=== PATIENT | female | born 1940 | race Caucasian/White ===

== ENCOUNTER 2016-11-21 19:48 | Emergency (ER) | payer MEDICARE, OTHER ==
[~2016-11-21] VITALS: Ht 172.7 cm; Wt 87.5 kg
[~2016-11-21 19:48] MED LIST: AMLO10TA2 PO; ASPI-482 PO; LEVO88TA4 PO; LISI-334 PO; LISI10TA2 PO; METF10002 PO; PRAV40TA2 PO
[2016-11-21 20:31] VITALS: BP 142/67
[2016-11-21] MEDS ORDERED: IPRATRPIUM/ALBUTEROL 0.5/2.5MG 3 ML NEBU. NEB ONE (20:45)
[2016-11-21 21:00] LABS: BASO % 1 % (0-3); EOS % 0 % (0-3); HEMATOCRIT 42.9 % (36.0-47.0); HEMOGLOBIN 14.2 g/dL (12.0-15.5); LYMPH # 0.5 x10^3/uL (1.0-4.8); LYMPH % 7 % (24-48); MEAN CORPUSCULAR HEMOGLOBIN 30 pg (25-35); MEAN CORPUSCULAR HGB CONC 33 g/dL (31-37); MEAN CORPUSCULAR VOLUME 91 fL (79-100); MONO % 11 % (0-9); NEUT % 80 % (31-73); PLATELET COUNT 170 x10^3/uL (140-400); RED BLOOD COUNT 4.73 x10^6/uL (3.50-5.40); RED CELL DISTRIBUTION WIDTH 13.6 % (11.5-14.5)
--- NOTE | 2016-11-21 21:01 | PHYS DOC ---
Past Medical History Past Medical History: Arthritis, CAD, Diabetes-Type II, High Cholesterol, Hypertension, Hypothyroid Past Surgical History: Appendectomy, Cholecystectomy, Coronary Bypass Surgery Alcohol Use: None Drug Use: None Adult General Chief Complaint Chief Complaint: Congestion HPI HPI 76-year-old female presents with several day history of progressive shortness of breath. She states she's also had some pain in her back when she takes a deep breath. She denies any fever chills or sweats. She has not had any hemoptysis. She denies dyspnea on exertion or orthopnea. [] Review of Systems Review of Systems Constitutional: Denies fever or chills [] Eyes: Denies change in visual acuity, redness, or eye pain [] HENT: Denies nasal congestion or sore throat [] Respiratory: Per history of present illness] Cardiovascular: No additional information not addressed in HPI [] GI: Denies abdominal pain, nausea, vomiting, bloody stools or diarrhea [] : Denies dysuria or hematuria [] Musculoskeletal: Denies back pain or joint pain [] Integument: Denies rash or skin lesions [] Neurologic: Denies headache, focal weakness or sensory changes [] Endocrine: Denies polyuria or polydipsia [] Current Medications Current Medications Current Medications Medications (Trade) Dose Ordered Sig/Vicky Start Time Stop Time Status Last Admin Dose Admin Albuterol/ Ipratropium (Duoneb) 3 ml 1X ONCE 11/21/16 20:45 11/21/16 20:46 DC 11/21/16 20:51 3 ML Allergies Allergies Allergies Coded Allergies Type Severity Reaction Last Updated Verified No Known Drug Allergies 01/07/16 No Physical Exam Physical Exam Constitutional: Well developed, well nourished, no acute distress, non-toxic appearance. [] HENT: Normocephalic, atraumatic, bilateral external ears normal, oropharynx moist, no oral exudates, nose normal. [] Eyes: PERRLA, EOMI, conjunctiva normal, no discharge. [] Neck: Normal range of motion, no tenderness, supple, no stridor. [] Cardiovascular:Heart rate regular rhythm, no murmur [] Lungs & Thorax: Bilateral breath sounds clear to auscultation [] Abdomen: Bowel sounds normal, soft, no tenderness, no masses, no pulsatile masses. [] Skin: Warm, dry, no erythema, no rash. [] Back: No tenderness, no CVA tenderness. [] Extremities: No tenderness, no cyanosis, no clubbing, ROM intact, no edema. [] Neurologic: Alert and oriented X 3, normal motor function, normal sensory function, no focal deficits noted. [] Psychologic: Affect normal, judgement normal, mood normal. [] Current Patient Data Vital Signs Vital Signs Date Time Temp Pulse Resp B/P Pulse Ox O2 Delivery O2 Flow Rate FiO2 11/21/16 20:54 92 Room Air 11/21/16 20:00 98.7 103 14 145/72 98.7 Lab Values Laboratory Tests Test 11/21/16 20:45 White Blood Count 7.0x10^3/uL (4.0-11.0) Red Blood Count 4.73x10^6/uL (3.50-5.40) Hemoglobin 14.2g/dL (12.0-15.5) Hematocrit 42.9% (36.0-47.0) Mean Corpuscular Volume 91fL (79-100) Mean Corpuscular Hemoglobin 30pg (25-35) Mean Corpuscular Hemoglobin Concent 33g/dL (31-37) Red Cell Distribution Width 13.6% (11.5-14.5) Platelet Count 170x10^3/uL (140-400) Neutrophils (%) (Auto) 80% (31-73) H Lymphocytes (%) (Auto) 7% (24-48) L Monocytes (%) (Auto) 11% (0-9) H Eosinophils (%) (Auto) 0% (0-3) Basophils (%) (Auto) 1% (0-3) Neutrophils # (Auto) 5.6x10^3uL (1.8-7.7) Lymphocytes # (Auto) 0.5x10^3/uL (1.0-4.8) L Monocytes # (Auto) 0.8x10^3/uL (0.0-1.1) Eosinophils # (Auto) 0.0x10^3/uL (0.0-0.7) Basophils # (Auto) 0.0x10^3/uL (0.0-0.2) Sodium Level 139mmol/L (136-145) Potassium Level 4.1mmol/L (3.5-5.1) Chloride Level 100mmol/L (98-107) Carbon Dioxide Level 27mmol/L (21-32) Anion Gap 12 (6-14) Blood Urea Nitrogen 23mg/dL (7-20) H Creatinine 1.4mg/dL (0.6-1.0) H Estimated GFR (Cockcroft-Gault) 36.5 BUN/Creatinine Ratio 16 (6-20) Glucose Level 203mg/dL (70-99) H Calcium Level 10.3mg/dL (8.5-10.1) H Total Bilirubin 0.5mg/dL (0.2-1.0) Aspartate Amino Transferase (AST) 20U/L (15-37) Alanine Aminotransferase (ALT) 27U/L (14-59) Alkaline Phosphatase 69U/L (46-116) Troponin I Quantitative < 0.017ng/mL (0.000-0.055) VV-Nxh-G-Type Natriuretic Peptide 605pg/mL (0-449) H Total Protein 7.8g/dL (6.4-8.2) Albumin 3.8g/dL (3.4-5.0) Albumin/Globulin Ratio 1.0 (1.0-1.7) Laboratory Tests 11/21/16 20:45 Laboratory Tests 11/21/16 20:45 EKG EKG [EKG: Sinus tachycardia rate of [address]-T changes] Radiology/Procedures Radiology/Procedures [] Impressions: Chest x-ray: Cardiomegaly no obvious infiltrate Course & Med Decision Making Course & Med Decision Making Pertinent Labs and Imaging studies reviewed. (See chart for details) [ED course: Evaluation reveals 76-year-old female in mild respiratory distress. She was given a DuoNeb treatment during her stay in the emergency from which did alleviate her symptoms. Patient states she feels much better and wants to go home.] Dragon Disclaimer Dragon Disclaimer This electronic medical record was generated, in whole or in part, using a voice recognition dictation system. Departure Departure Impression: Primary Impression: Dyspnea Disposition: HOME, SELF-CARE Condition: IMPROVED Referrals: ESTEVAN CARRANZA MD (PCP) Patient Instructions: Shortness of Breath Additional Instructions: Thank you for allowing us to participate in your care today. Followup with your primary care physician in 3 days if your symptoms do not improve. Return to the emergency department you have any new or concerning findings. This should be evaluated by the primary care physician and any necessary consulting services for continued management within a few days after discharge. Return to emergency room if you have any new or concerning symptoms including but not limited to fever, chills, nausea, vomiting, intractable pain, any new rashes, chest pain, shortness of air, uncontrolled bleeding, difficulty breathing, and/or vision loss. You may have been prescribed medication that can change in your level of thinking and ability to operate machinery. These medications include hydrocodone and Ativan. Also, Benadryl has been known to do this as well. Be sure to check with your pharmacist and ask if the medications you've prescribed can affect your level of consciousness. I recommend not operating heavy machinery or driving while on medication such as these. Scripts Albuterol Sulfate (Proventil Hfa Inhaler)6.7 Gm Hfa.[id number].ad1 Puff IH PRN Q4HRS PRN asthma #1 INHALER NS Prov:GEMA SHIN DO 11/21/16 Prednisone 20 Mg Tablet2 Tab PO DAILY PRN COUGH #14 TAB Prov:GEMA SHIN DO 11/21/16 Azithromycin (Zithromax)250 Mg Tablet1 Pkg PO UD bronchitis #6 TAB Take 2 tablets on day 1 and then 1 tablet each day for the next 4 days as directed Prov:GEMA SHIN DO 11/21/16 Problem Qualifiers Primary Impression: Dyspnea Dyspnea type: unspecified Qualified Code: R06.00 - Dyspnea, unspecified GEMA SHIN DO Nov 21, 2016 21:01
[2016-11-21 21:16] LABS: CALCIUM 10.3 mg/dL (8.5-10.1); CREATININE 1.4 mg/dL (0.6-1.0); GFR 36.5; POTASSIUM 4.1 mmol/L (3.5-5.1)
[2016-11-21 21:21] LABS: ALBUMIN 3.8 g/dL (3.4-5.0); TOTAL BILIRUBIN 0.5 mg/dL (0.2-1.0); TOTAL PROTEIN 7.8 g/dL (6.4-8.2)
[2016-11-21] MEDS ORDERED: PROVENTIL HFA6.7 GM IH (22:39)
[2016-11-21] MEDS ORDERED: PRED20TA PO (22:39)
[2016-11-21] MEDS ORDERED: AZIT250T PO (22:39)
--- NOTE | 2016-11-22 06:53 | EKG ---
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
--- NOTE | 2016-11-22 08:23 | RAD ---
Portable chest, 11/21/2016: History: Shortness of breath, cough Comparison is made to a study from 02/11/2007. There has been a previous median sternotomy. The heart is at the upper limits of normal in size. The pulmonary vascularity is normal. No pulmonary infiltrates are seen. There is no evidence of pleural fluid. There is a moderate thoracic scoliosis. The bony structures are demineralized. IMPRESSION: No acute cardiopulmonary abnormality is detected.
== END 2016-11-21 22:55 | disposition home or self-care (01) ==
LOC: ER 19:48
DX: R06.00 Dyspnea, unspecified (principal); M54.9 Dorsalgia, unspecified; E03.9 Hypothyroidism, unspecified; E11.9 Type 2 diabetes mellitus without complications; E78.00 Pure hypercholesterolemia, unspecified; I10 Essential (primary) hypertension; I25.10 Atherosclerotic heart disease of native coronary artery without angina pectoris; M19.90 Unspecified osteoarthritis, unspecified site; Z95.1 Presence of aortocoronary bypass graft; Z90.49 Acquired absence of other specified parts of digestive tract
CPT/HCPCS: 36415; 71010; 80053; 83880; 84484; 85027; 93005; 94250; 94640; 99285; J7620

== ENCOUNTER 2016-12-16 13:43 | Inpatient (IN) | payer MEDICARE, OTHER ==
[~2016-12-16] VITALS: Ht 172.7 cm; Wt 87.5 kg
[~2016-12-16 13:43] MED LIST changes: +AZIT250T PO; +PRED20TA PO; +PROVENTIL HFA6.7 GM IH
--- NOTE | 2016-12-16 14:18 | RAD ---
Indication weakness and productive cough for 4 weeks. A single view of the chest was obtained. Comparison is made to an exam November 21, 2016. Postoperative changes are noted. There is mild cardiomegaly, similar. There is no focal consolidated pneumonia. There is no gross congestive heart failure. Scoliosis is noted. A significant change compared to the previous exam is not seen. IMPRESSION: No acute process. No significant change
--- NOTE | 2016-12-16 14:27 | PHYS DOC ---
Past Medical History Past Medical History: Arthritis, CAD, Diabetes-Type II, High Cholesterol, Hypertension, Hypothyroid Past Surgical History: Appendectomy, Cholecystectomy, Coronary Bypass Surgery Alcohol Use: None Drug Use: None Adult General Chief Complaint Chief Complaint: WEAKNESS/GENERALIZED HPI HPI 76-year-old female who's had worsening weakness for the last month that is progressively worsen. Patient was seen in the ER approximately one month ago and put on a course of antibiotics for an upper respiratory infection. Patient then states she was still having a cough and some diarrhea symptoms for which she follow-up with her primary care doctor last week and had her metformin adjusted. Patient still states that she is very weak appearing barely walk. She normally lives alone and does have home health assistance but that she normally does not require any walker or wheelchair. She now states she can barely walk. She denies any chest pain or shortness of breath. She denies any significant fever or chills. She denies any nausea. She does state she had one episode of vomiting yesterday that resolved. She does state she has and able to eat and drink. She denies any abdominal pain. She denies any headache or dizziness. Review of Systems Review of Systems Constitutional: Denies fever or chills [] Eyes: Denies change in visual acuity, redness, or eye pain [] HENT: Denies nasal congestion or sore throat [] Respiratory: Denies cough or shortness of breath [] Cardiovascular: No additional information not addressed in HPI [] GI: Denies abdominal pain, nausea, vomiting, bloody stools or diarrhea [] : Denies dysuria or hematuria [] Musculoskeletal: Denies back pain or joint pain [] Integument: Denies rash or skin lesions [] Neurologic: Denies headache, focal weakness or sensory changes [] Endocrine: Denies polyuria or polydipsia [] Current Medications Current Medications Current Medications Medications (Trade) Dose Ordered Sig/Vicky Start Time Stop Time Status Last Admin Dose Admin Albuterol/ Ipratropium 3 ml 3 ml 1X ONCE 12/16/16 14:30 12/16/16 14:31 DC 12/16/16 14:35 3 ML Sodium Chloride (Iv Sodium Chloride 0.9% 1000ml Bag) 1,000 ml @ 1,000 mls/hr 1X ONCE 12/16/16 14:30 12/16/16 15:29 12/16/16 14:33 1,000 MLS/HR Allergies Allergies Allergies Coded Allergies Type Severity Reaction Last Updated Verified No Known Drug Allergies 01/07/16 No Physical Exam Physical Exam Constitutional: Well developed, well nourished, no acute distress, non-toxic appearance. [] HENT: Normocephalic, atraumatic, bilateral external ears normal, oropharynx moist, no oral exudates, nose normal. [] Eyes: PERRLA, EOMI, conjunctiva normal, no discharge. [] Neck: Normal range of motion, no tenderness, supple, no stridor. [] Cardiovascular:Heart rate regular rhythm, no murmur [] Lungs & Thorax: Bilateral breath sounds clear to auscultation [] Abdomen: Bowel sounds normal, soft, no tenderness, no masses, no pulsatile masses. [] Skin: Warm, dry, no erythema, no rash. [] Back: No tenderness, no CVA tenderness. [] Extremities: No tenderness, no cyanosis, no clubbing, ROM intact, no edema. [] Neurologic: Alert and oriented X 3, normal motor function, normal sensory function, no focal deficits noted. [] Psychologic: Affect normal, judgement normal, mood normal. [] Current Patient Data Vital Signs Vital Signs Date Time Temp Pulse Resp B/P Pulse Ox O2 Delivery O2 Flow Rate FiO2 12/16/16 14:40 94 Room Air 12/16/16 13:52 96.8 56 24 170/90 96.8 Lab Values Laboratory Tests Test 12/16/16 13:55 12/16/16 14:30 White Blood Count 6.0x10^3/uL (4.0-11.0) Red Blood Count 4.81x10^6/uL (3.50-5.40) Hemoglobin 14.1g/dL (12.0-15.5) Hematocrit 41.6% (36.0-47.0) Mean Corpuscular Volume 87fL (79-100) Mean Corpuscular Hemoglobin 29pg (25-35) Mean Corpuscular Hemoglobin Concent 34g/dL (31-37) Red Cell Distribution Width 13.1% (11.5-14.5) Platelet Count 209x10^3/uL (140-400) Neutrophils (%) (Auto) 59% (31-73) Lymphocytes (%) (Auto) 30% (24-48) Monocytes (%) (Auto) 9% (0-9) Eosinophils (%) (Auto) 2% (0-3) Basophils (%) (Auto) 0% (0-3) Neutrophils # (Auto) 3.5x10^3uL (1.8-7.7) Lymphocytes # (Auto) 1.8x10^3/uL (1.0-4.8) Monocytes # (Auto) 0.5x10^3/uL (0.0-1.1) Eosinophils # (Auto) 0.1x10^3/uL (0.0-0.7) Basophils # (Auto) 0.0x10^3/uL (0.0-0.2) Sodium Level 133mmol/L (136-145) L Potassium Level 3.0mmol/L (3.5-5.1) L Chloride Level 93mmol/L (98-107) L Carbon Dioxide Level 29mmol/L (21-32) Anion Gap 11 (6-14) Blood Urea Nitrogen 23mg/dL (7-20) H Creatinine 1.1mg/dL (0.6-1.0) H Estimated GFR (Cockcroft-Gault) 48.2 Glucose Level 262mg/dL (70-99) H Calcium Level 10.0mg/dL (8.5-10.1) Urine Collection Type U cath Urine Color Yellow Urine Clarity Clear Urine pH 6.0 Urine Specific Higginson 1.010 Urine Protein Negativemg/dL (NEG-TRACE) Urine Glucose (UA) 500mg/dL (NEG) Urine Ketones (Stick) Negativemg/dL (NEG) Urine Blood Negative (NEG) Urine Nitrite Negative (NEG) Urine Bilirubin Negative (NEG) Urine Urobilinogen Dipstick 0.2mg/dL (0.2 mg/dL) Urine Leukocyte Esterase Negative (NEG) Urine RBC 0/HPF (0-2) Urine WBC Occ/HPF (0-4) Urine Squamous Epithelial Cells Few/LPF Urine Renal Epithelial Cells Occ/LPF Urine Bacteria 0/HPF (0-FEW) Laboratory Tests 12/16/16 13:55 Laboratory Tests 12/16/16 13:55 EKG EKG EKG as interpreted by me shows sinus rhythm with a rate of 54 bpm. There is some ST flattening in leads V3 through V6 but no obvious ischemic findings on this EKG. Interpretation is somewhat limited due to artifact. Radiology/Procedures Radiology/Procedures One view of the chest as interpreted by me does not reveal any acute findings. This is confirmed by the radiologist. There is no significant change from a chest film she had obtained on November 21, 2016. Course & Med Decision Making Course & Med Decision Making Pertinent Labs and Imaging studies reviewed. (See chart for details) This 76-year-old female with ongoing weakness that is progressively worsened will likely be admitted to the hospital for further evaluation and treatment. Her workup is still pending at this time her EKG and chest film were unrevealing for her weakness. Patient will be given a breathing treatment as well as IV fluids. Laboratory workup including urinalysis will be obtained. Laboratory workup significant for hypokalemia of 3.0. Urinalysis is negative for any sign of infection. I'll be admitting her primarily to the hospitalist for her ongoing weakness. A dose of potassium was ordered per the department. I discussed the case with the hospitalist, Dr. Parsons, who agreed to accept the patient for further evaluation and treatment. Dragon Disclaimer Dragon Disclaimer This electronic medical record was generated, in whole or in part, using a voice recognition dictation system. Departure Departure Impression: Primary Impression: Weakness Additional Impression: Hypokalemia Disposition: ADMITTED INPATIENT Admitting Physician: Other Condition: STABLE Referrals: ESTEVAN CARRANZA MD (PCP) Problem Qualifiers LINO SAMUEL DO Dec 16, 2016 14:27
[2016-12-16] MEDS ORDERED: IPRATRPIUM/ALBUTEROL 0.5/2.5MG 3 ML NEBU. NEB ONE (14:30)
[2016-12-16] MEDS ORDERED: IV NORMAL SALINE 1000ML BAG 1,000 ML IV ONE (14:30)
[2016-12-16 14:34] LABS: BASO % 0 % (0-3); EOS % 2 % (0-3); HEMATOCRIT 41.6 % (36.0-47.0); HEMOGLOBIN 14.1 g/dL (12.0-15.5); LYMPH # 1.8 x10^3/uL (1.0-4.8); LYMPH % 30 % (24-48); MEAN CORPUSCULAR HEMOGLOBIN 29 pg (25-35); MEAN CORPUSCULAR HGB CONC 34 g/dL (31-37); MEAN CORPUSCULAR VOLUME 87 fL (79-100); MONO % 9 % (0-9); NEUT % 59 % (31-73); PLATELET COUNT 209 x10^3/uL (140-400); RED BLOOD COUNT 4.81 x10^6/uL (3.50-5.40); RED CELL DISTRIBUTION WIDTH 13.1 % (11.5-14.5)
[2016-12-16 14:40] LABS: BILIRUBIN,URINE NEGATIVE (NEG); GLUCOSE,URINE 500 mg/dL (NEG); NITRITE,URINE NEGATIVE (NEG); PROTEIN,URINE NEGATIVE (NEG-TRACE); UROBILINOGEN,URINE 0.2 mg/dL (0.2 mg/dL)
[2016-12-16 14:45] LABS: CREATININE 1.1 mg/dL (0.6-1.0); GFR 48.2
[2016-12-16 14:45] LABS: BACTERIA,URINE 0 /HPF (0-FEW); RBC,URINE 0 /HPF (0-2); SQUAMOUS EPITHELIAL CELL,UR FEW /LPF; WBC,URINE OCC /HPF (0-4)
[2016-12-16] MEDS ORDERED: POTASSIUM CHLORIDE 20 MEQ TABLET.ER. PO ONE (15:00)
[2016-12-16] MEDS ORDERED: ONDANSETRON PF 4 MG/2 ML VIAL. IV PRN (15:15)
--- NOTE | 2016-12-16 15:27 | ACF ---
Admission Forms Criteria TELEMETRY CARE Telemetry Admission Guidelines (Place 'X' for any and all applicable criteria): Admission to telemetry [A] may be indicated for ANY ONE of the following(1)(2)(3 )(4)(5): [ ]I. Cardiac disease, including ANY ONE of the following (9)(10)(11)(12)(13 ): [ ]a) Postacute IA [ ]b) Low-risk patients with ST-segment elevation IA who have undergone successful percutaneous coronary intervention [ ]c) Unstable angina [ ]d) Suspected IA (until it is ruled out) [ ]e) Post cardiac surgery (first 48 to 72 hours unless complications occur) [ ]f) Acute arrhythmias (including significant tachycardia or bradycardia) [B] [ ]g) Firing of an implantable cardioverter defibrillator [C] [ ]h) Suspected pacemaker or implantable cardioverter defibrillator malfunction (10) [ ]i) New administration or adjustment of an antiarrhythmic drug [D ] [ ]j) Child admitted for acute congestive heart failure [ ]j) Long QT syndrome [ ]k) Advanced heart block (eg, second-degree Mobitz type II, third- degree heart block) [ ]l) Acute myocarditis or pericarditis [ ]m) Short-term (ambulatory or inpatient) monitoring after a cardiac procedure as indicated by ANY ONE of the following [E]: [ ]i) Electrophysiologic studies [ ]ii) Percutaneous coronary intervention with stent placement [ ]iii) Pacemaker placement with cardiac conduction defect [ ]iv) Implantable cardiac defibrillator placement [ ]II. Drug overdose or poisoning with substance that causes arrhythmias or QT prolongation (eg, phenothiazines, sympathomimetic agents, cyclic antidepressants, digitalis, antiarrhythmic drugs)(15) [ ]III. Short-term (ambulatory or inpatient) monitoring after therapeutic or diagnostic procedure requiring conscious sedation or anesthesia (eg, endoscopy, elective cardioversion) [ ]IV. Acute cerebrovascular even[F](18) [ ]V. Massive blood transfusion (eg, at least 10 units of packed red blood cells in 24 hours) [ ]. Variceal bleeding after endoscopy, sclerotherapy, or IV vasopressin [X]VII. Uncorrected electrolyte abnormalities associated with an increased risk of dangerous arrhythmia [G]; examples include [X]a) Hyperkalemia with attributable ECG changes [ ]b) Potassium greater than 6.5 mmol/L (mEq/L) in a patient without history of chronic renal disease [ ]c) Prolonged QT attributed to hypokalemia, hypomagnesemia, or hypocalcemia [ ]VIII.Unexplained syncope or other neurologic event suspected of being due to arrhythmia due to a finding that increases risk; examples include(19)(20)(21): [ ]a) High-risk ECG findings (eg, bifascicular block, bradycardia, abnormal QT interval, ventricular pre- excitation) [ ]b) History of previous syncope due to arrhythmia [ ]c) Abnormal ventricular function (eg, reduced ejection fraction ) [ ]d) Exertional or supine syncope [ ]e) Concerning syncope characteristics (eg, sudden loss of consciousness without prodrome) [ ]f) Family history of sudden [ ]g) Use of arrhythmogenic medication [ ]h) Suspected cardiac ischemia [ ]i) Known channelopathy (eg, long QT syndrome, Brugada syndrome, or catecholaminergic paroxysmal ventricular tachycardia) [ ]j) Known structural heart disease (eg, hypertrophic cardiomyopathy , severe valvular disease) [ ]k) Palpitations preceding syncope The original [employer] content created by [employer] has been revised. The portions of the content which have been revised are identified through the use of italic text or in bold, and [employer] has neither reviewed nor approved the modified material. All other unmodified content is copyright [employer]. Please see references footnoted in the original [employer] edition 2016 Admission Criteria Met?: Yes EVARISTO KEBEDE Dec 16, 2016 15:27
[2016-12-16] MEDS ORDERED: ASPI81TA2 PO (18:22)
[2016-12-16] MEDS ORDERED: GLIM1TAB2 PO (18:22)
[2016-12-16 19:05] VITALS: BP 151/58
[2016-12-16] MEDS: IPRATRPIUM/ALBUTEROL 0.5/2.5MG 3 ML NEBU. NEB SCH (21:11)
[2016-12-16 23:05] VITALS: BP 145/78
[2016-12-17] MEDS: ZOLPIDEM 5 MG TABLET. PO PRN ×2 (00:24→23:47)
[2016-12-17] MEDS: PROMETH/CODEINE 6.25/10MG 5 ML SYRUP. PO PRN ×2 (00:24→23:47)
[2016-12-17 05:40] LABS: BASO % 1 % (0-3); EOS % 3 % (0-3); HEMATOCRIT 40.7 % (36.0-47.0); HEMOGLOBIN 13.7 g/dL (12.0-15.5); LYMPH # 1.8 x10^3/uL (1.0-4.8); LYMPH % 33 % (24-48); MEAN CORPUSCULAR HEMOGLOBIN 30 pg (25-35); MEAN CORPUSCULAR HGB CONC 34 g/dL (31-37); MEAN CORPUSCULAR VOLUME 87 fL (79-100); MONO % 11 % (0-9); NEUT % 54 % (31-73); PLATELET COUNT 201 x10^3/uL (140-400); RED BLOOD COUNT 4.66 x10^6/uL (3.50-5.40); WHITE BLOOD COUNT 5.6 x10^3/uL (4.0-11.0)
[2016-12-17 06:02] LABS: GFR 53.8; POTASSIUM 3.7 mmol/L (3.5-5.1)
[2016-12-17 07:00] VITALS: BP 133/67
[2016-12-17] MEDS: IPRATRPIUM/ALBUTEROL 0.5/2.5MG 3 ML NEBU. NEB SCH ×2 (08:27→11:37)
[2016-12-17 11:17] VITALS: BP 118/63
--- NOTE | 2016-12-17 11:39 | EKG ---
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
[2016-12-17] MEDS ORDERED: DEXTROSE 50% 25 GM / 50ML DISP.SYRIN. IV PRN (12:00)
--- NOTE | 2016-12-17 12:11 | PDOC1 ---
History and Physical Date of Admission Date of Admission DATE: 12/16/16 Identification/Chief Complaint Chief Complaint Weakness, shortness of air Source Source: Patient History of Present Illness History of Present Illness Pt states that she has not been feeling well for the past month and has had increased, progressive weakness. She thinks her weakness is related to her cough. Cough is productive at times with yellow sputum. She feels exceptionally SOA when she is walking. She denies history of asthma or COPD, but then states she has been told in the past that she has emphysema. She did have a week of diarrhea, but that has resolved. She has been treated with antibiotics by her PCP but was not improving. Past Medical History Cardiovascular: CAD, HTN, Hyperlipidemia Pulmonary: COPD GI: No pertinent hx Heme/Onc: No pertinent hx Hepatobiliary: No pertinent hx Psych: No pertinent hx Rheumatologic: No pertinent hx Infectious disease: No pertinent hx ENT: No pertinent hx Renal/: No pertinent hx Endocrine: Diabetes, Hypothyroidism, Hyperparathyroidism Dermatology: No pertinent hx Past Surgical History Past Surgical History: CABG, Other (Bladder Surgery) Family History Family History: Cancer (Mom- ovarian), Diabetes (Brother, Sister), Heart Disease (Father, Sister) Social History Smoke: Quit ALCOHOL: none Drugs: None Current Problem List Problem List Problems Medical Problems: (1) Hypokalemia Status: Acute (2) Weakness Status: Acute Problems: Current Medications Current Medications Current Medications Albuterol/ Ipratropium 3 ml 3 ml 1X ONCE NEB Last administered on 12/16/16 14 :35; Start 12/16/16 at 14:30; Stop 12/16/16 at 14:31; Status DC Sodium Chloride (Iv Sodium Chloride 0.9% 1000ml Bag) 1,000 ml @ 1,000 mls/hr 1X ONCE IV Last administered on 12/16/16 14:33; Start 12/16/16 at 14:30; Stop 12/16/16 at 15:29; Status DC Potassium Chloride (Klor-Con) 40 meq 1X ONCE PO Last administered on 15:19; Start 12/16/16 at 15:00; Stop 12/16/16 at 15:01; Status DC Ondansetron HCl (Zofran) 4 mg PRN Q8HRS PRN IV NAUSEA/VOMITING; Start 12/16/16 at 15:15; Stop 12/17/16 at 15:14 Albuterol/ Ipratropium (Duoneb) 3 ml RTQID NEB Last administered on 12/17/16 11:37; Start 12/16/16 at 16:00; Stop 12/17/16 at 15:59 Promethazine HCl/ Codeine (Phenergan With Codeine) 5 ml PRN Q6HRS PRN PO COUGH Last administered on 12/17/16 00:24; Start 12/17/16 at 00:30 Zolpidem Tartrate (Ambien) 5 mg PRN QHS PRN PO INSOMNIA Last administered on 00:24; Start 12/17/16 at 00:30 Prednisone (Prednisone) 60 mg DAILY PO ; Start 12/17/16 at 12:00; Status UNV Levofloxacin (Levaquin) 500 mg DAILY06 PO ; Start 12/17/16 at 12:00; Status UNV Active Scripts Active Proventil Hfa Inhaler (Albuterol Sulfate) 6.7 Gm Hfa.aer.ad 1 Puff IH PRN Q4HRS PRN Prednisone 20 Mg Tablet 2 Tab PO DAILY PRN Zithromax (Azithromycin) 250 Mg Tablet 1 Pkg PO UD Take 2 tablets on day 1 and then 1 tablet each day for the next 4 days as directed Reported Aspirin 81 Mg Tab.chew 81 Mg PO Glimepiride 1 Mg Tablet 1 Mg PO DAILY Amlodipine Besylate 10 Mg Tablet 10 Mg PO DAILY Pravastatin Sodium 40 Mg Tablet 1 Tab PO DAILY Levothyroxine Sodium 88 Mcg Tablet 1 Tab PO DAILY Allergies Allergies: Coded Allergies: No Known Drug Allergies (Unverified , 01/07/16) ROS General: YES: Fatigue, No: Chills PSYCHOLOGICAL ROS: No: Anxiety, Depression Eyes: No Decreased vision, No Eye Pain HEENT: No: Nasal congestion, Sore Throat ALLERGY AND IMMUNOLOGY: YES: Post Nasal Drip, No: Hives Hematological and Lymphatic: No: Bleeding Problems, Blood Clots Breast: No New/Changing Breast Lumps Respiratory: YES: Cough, Shortness of breath, Sputum Changes Cardiovascular: No Chest Pain, No Edema, No Palpitations Gastrointestinal: No Abdominal Pain, No Constipation, No Diarrhea, No Nausea, No Vomiting Genitourinary: No Dysuria, No Urgency Musculoskeletal: No Joint Pain, No Muscle Pain Neurological: Yes Weakness, No Impaired Coord/balance, No Numbness/Tingling Skin: No Rash, No Skin Lesion Changes Physical Exam General: Alert, Oriented X3, Cooperative, No acute distress, Other (slight resting tremor) HEENT: Atraumatic, PERRLA, EOMI, Mucous membr. moist/pink Lungs: Other (rhonchi and wheezing heard throughout) Heart: RRR, no thrills, no rubs, no gallops Abdomen: Normal bowel sounds, Soft, No tenderness, No hepatosplenomegaly Extremities: No clubbing, No cyanosis, No edema Skin: No rashes, No breakdown, No significant lesion Neuro: Normal speech, Sensation intact, Cranial nerves 3-12 NL Psych/Mental Status: Mental status NL, Mood NL Vitals Vitals Vital Signs Date Time Temp Pulse Resp B/P Pulse Ox O2 Delivery O2 Flow Rate FiO2 12/17/16 11:39 95 Room Air 12/17/16 11:17 96.1 78 17 118/63 96.1 Labs Labs Laboratory Tests Test 12/16/16 13:55 12/16/16 14:30 12/17/16 05:20 White Blood Count 6.0x10^3/uL (4.0-11.0) 5.6x10^3/uL (4.0-11.0) Red Blood Count 4.81x10^6/uL (3.50-5.40) 4.66x10^6/uL (3.50-5.40) Hemoglobin 14.1g/dL (12.0-15.5) 13.7g/dL (12.0-15.5) Hematocrit 41.6% (36.0-47.0) 40.7% (36.0-47.0) Mean Corpuscular Volume 87fL (79-100) 87fL (79-100) Mean Corpuscular Hemoglobin 29pg (25-35) 30pg (25-35) Mean Corpuscular Hemoglobin Concent 34g/dL (31-37) 34g/dL (31-37) Red Cell Distribution Width 13.1% (11.5-14.5) 13.0% (11.5-14.5) Platelet Count 209x10^3/uL (140-400) 201x10^3/uL (140-400) Neutrophils (%) (Auto) 59% (31-73) 54% (31-73) Lymphocytes (%) (Auto) 30% (24-48) 33% (24-48) Monocytes (%) (Auto) 9% (0-9) 11% (0-9) Eosinophils (%) (Auto) 2% (0-3) 3% (0-3) Basophils (%) (Auto) 0% (0-3) 1% (0-3) Neutrophils # (Auto) 3.5x10^3uL (1.8-7.7) 3.0x10^3uL (1.8-7.7) Lymphocytes # (Auto) 1.8x10^3/uL (1.0-4.8) 1.8x10^3/uL (1.0-4.8) Monocytes # (Auto) 0.5x10^3/uL (0.0-1.1) 0.6x10^3/uL (0.0-1.1) Eosinophils # (Auto) 0.1x10^3/uL (0.0-0.7) 0.2x10^3/uL (0.0-0.7) Basophils # (Auto) 0.0x10^3/uL (0.0-0.2) 0.0x10^3/uL (0.0-0.2) Sodium Level 133mmol/L (136-145) 140mmol/L (136-145) Potassium Level 3.0mmol/L (3.5-5.1) 3.7mmol/L (3.5-5.1) Chloride Level 93mmol/L (98-107) 103mmol/L (98-107) Carbon Dioxide Level 29mmol/L (21-32) 27mmol/L (21-32) Anion Gap 11 (6-14) 10 (6-14) Blood Urea Nitrogen 23mg/dL (7-20) 18mg/dL (7-20) Creatinine 1.1mg/dL (0.6-1.0) 1.0mg/dL (0.6-1.0) Estimated GFR (Cockcroft-Gault) 48.2 53.8 Glucose Level 262mg/dL (70-99) 170mg/dL (70-99) Calcium Level 10.0mg/dL (8.5-10.1) 10.0mg/dL (8.5-10.1) Troponin I Quantitative < 0.017ng/mL (0.000-0.055) Urine Collection Type U cath Urine Color Yellow Urine Clarity Clear Urine pH 6.0 Urine Specific [place] 1.010 Urine Protein Negativemg/dL (NEG-TRACE) Urine Glucose (UA) 500mg/dL (NEG) Urine Ketones (Stick) Negativemg/dL (NEG) Urine Blood Negative (NEG) Urine Nitrite Negative (NEG) Urine Bilirubin Negative (NEG) Urine Urobilinogen Dipstick 0.2mg/dL (0.2 mg/dL) Urine Leukocyte Esterase Negative (NEG) Urine RBC 0/HPF (0-2) Urine WBC Occ/HPF (0-4) Urine Squamous Epithelial Cells Few/LPF Urine Renal Epithelial Cells Occ/LPF Urine Bacteria 0/HPF (0-FEW) Laboratory Tests Test 12/16/16 13:55 12/16/16 14:30 12/17/16 05:20 White Blood Count 6.0x10^3/uL (4.0-11.0) 5.6x10^3/uL (4.0-11.0) Red Blood Count 4.81x10^6/uL (3.50-5.40) 4.66x10^6/uL (3.50-5.40) Hemoglobin 14.1g/dL (12.0-15.5) 13.7g/dL (12.0-15.5) Hematocrit 41.6% (36.0-47.0) 40.7% (36.0-47.0) Mean Corpuscular Volume 87fL (79-100) 87fL (79-100) Mean Corpuscular Hemoglobin 29pg (25-35) 30pg (25-35) Mean Corpuscular Hemoglobin Concent 34g/dL (31-37) 34g/dL (31-37) Red Cell Distribution Width 13.1% (11.5-14.5) 13.0% (11.5-14.5) Platelet Count 209x10^3/uL (140-400) 201x10^3/uL (140-400) Neutrophils (%) (Auto) 59% (31-73) 54% (31-73) Lymphocytes (%) (Auto) 30% (24-48) 33% (24-48) Monocytes (%) (Auto) 9% (0-9) 11% (0-9) Eosinophils (%) (Auto) 2% (0-3) 3% (0-3) Basophils (%) (Auto) 0% (0-3) 1% (0-3) Neutrophils # (Auto) 3.5x10^3uL (1.8-7.7) 3.0x10^3uL (1.8-7.7) Lymphocytes # (Auto) 1.8x10^3/uL (1.0-4.8) 1.8x10^3/uL (1.0-4.8) Monocytes # (Auto) 0.5x10^3/uL (0.0-1.1) 0.6x10^3/uL (0.0-1.1) Eosinophils # (Auto) 0.1x10^3/uL (0.0-0.7) 0.2x10^3/uL (0.0-0.7) Basophils # (Auto) 0.0x10^3/uL (0.0-0.2) 0.0x10^3/uL (0.0-0.2) Sodium Level 133mmol/L (136-145) 140mmol/L (136-145) Potassium Level 3.0mmol/L (3.5-5.1) 3.7mmol/L (3.5-5.1) Chloride Level 93mmol/L (98-107) 103mmol/L (98-107) Carbon Dioxide Level 29mmol/L (21-32) 27mmol/L (21-32) Anion Gap 11 (6-14) 10 (6-14) Blood Urea Nitrogen 23mg/dL (7-20) 18mg/dL (7-20) Creatinine 1.1mg/dL (0.6-1.0) 1.0mg/dL (0.6-1.0) Estimated GFR (Cockcroft-Gault) 48.2 53.8 Glucose Level 262mg/dL (70-99) 170mg/dL (70-99) Calcium Level 10.0mg/dL (8.5-10.1) 10.0mg/dL (8.5-10.1) Troponin I Quantitative < 0.017ng/mL (0.000-0.055) Urine Collection Type U cath Urine Color Yellow Urine Clarity Clear Urine pH 6.0 Urine Specific [place] 1.010 Urine Protein Negativemg/dL (NEG-TRACE) Urine Glucose (UA) 500mg/dL (NEG) Urine Ketones (Stick) Negativemg/dL (NEG) Urine Blood Negative (NEG) Urine Nitrite Negative (NEG) Urine Bilirubin Negative (NEG) Urine Urobilinogen Dipstick 0.2mg/dL (0.2 mg/dL) Urine Leukocyte Esterase Negative (NEG) Urine RBC 0/HPF (0-2) Urine WBC Occ/HPF (0-4) Urine Squamous Epithelial Cells Few/LPF Urine Renal Epithelial Cells Occ/LPF Urine Bacteria 0/HPF (0-FEW) VTE Prophylaxis Ordered VTE Prophylaxis Devices: Yes VTE Pharmacological Prophylaxi: No Assessment/Plan Assessment/Plan Pt is a 76yo CF admitted for COPD Exacerbation 1)COPD Exacerbation- pt started on Prednisone and Levaquin. Will get PT/OT to work with her as well. 2)HTN- pt's blood pressure WNL without her medicine. Will hold pt's Norvasc 5mg , Metoprolol 50mg ER, and HCTZ/Lisinopril 3)DM2- previously moderately controlled with HbA1C of 7.6 01/11. Will repeat. Will continue pt's Amaryl 1mg and also have SSI available 4)Hypothyroidism- previously well controlled with TSH of 3.641 01/11. Will continue pt's Levothyroxine 88mcg 5)Hypokalemia- resolved JOSE ANGEL HERRON MD Dec 17, 2016 12:11
[2016-12-17] MEDS ORDERED: ALBUTEROL SULFATE 2.5 MG/3 ML NEBU. NEB PRN (12:15)
[2016-12-17] MEDS: GLIMEPIRIDE 2 MG TABLET PO SCH (12:49)
[2016-12-17] MEDS: ASPIRIN 81 MG TAB.CHEW PO SCH (12:49)
[2016-12-17] MEDS: LEVOFLOXACIN 500 MG TABLET PO SCH (12:49)
[2016-12-17] MEDS: LEVOTHYROXINE 88 MCG TABLET PO SCH (12:49)
[2016-12-17] MEDS: PREDNISONE 20 MG TABLET PO SCH (12:50)
[2016-12-17] MEDS: INSULIN ASPART 300 UNITS/3 ML INSULN.PEN SQ SCH ×2 (12:56→18:04)
[2016-12-17 15:00] VITALS: BP 114/60
[2016-12-17 19:15] VITALS: BP 137/64
[2016-12-17] MEDS ORDERED: INSULIN ASPART 300 UNITS/3 ML INSULN.PEN SQ ONE (21:15)
[2016-12-17] MEDS: ATORVASTATIN CALCIUM 20 MG TABLET PO SCH (21:18)
[2016-12-17 22:45] VITALS: BP 151/81
[2016-12-18 03:00] VITALS: BP 134/56
[2016-12-18] MEDS: LEVOTHYROXINE 88 MCG TABLET PO SCH (06:18)
[2016-12-18] MEDS: LEVOFLOXACIN 500 MG TABLET PO SCH (06:18)
[2016-12-18 07:15] VITALS: BP 147/72
[2016-12-18] MEDS: PREDNISONE 20 MG TABLET PO SCH (08:24)
[2016-12-18] MEDS: GLIMEPIRIDE 2 MG TABLET PO SCH (08:24)
[2016-12-18] MEDS: ASPIRIN 81 MG TAB.CHEW PO SCH (08:24)
[2016-12-18] MEDS: INSULIN ASPART 300 UNITS/3 ML INSULN.PEN SQ SCH ×3 (08:29→17:10)
--- NOTE | 2016-12-18 09:38 | PDOC ---
SUBJECTIVE Subjective Pt states that she still does not feel great, but was able to walk around a little bit better today. OBJECTIVE Vital Signs Vital Signs Date Time Temp Pulse Resp B/P Pulse Ox O2 Delivery O2 Flow Rate FiO2 12/18/16 07:15 97.6 65 16 147/72 95 Room Air 97.6 12/18/16 03:00 97.5 74 16 134/56 93 Room Air 97.5 12/17/16 22:45 97.7 104 18 151/81 100 Room Air 97.7 12/17/16 20:15 Room Air 12/17/16 19:15 97.5 79 16 137/64 94 Room Air 97.5 12/17/16 15:00 97.3 76 19 114/60 94 Room Air 97.3 12/17/16 11:39 95 Room Air 12/17/16 11:17 96.1 78 17 118/63 96 Room Air 96.1 I & O Intake and Output 12/18/16 07:00 Intake Total 1200 ml Output Total 740 ml Balance 460 ml Intake Oral 1200 ml Output Urine Total 740 ml # Voids 1 PHYSICAL EXAM Physical Exam General: Alert, Oriented X3, Cooperative, No acute distress, Other (slight resting tremor) HEENT: Atraumatic, PERRLA, EOMI, Mucous membr. moist/pink Lungs: Other (rhonchi and wheezing heard throughout) Heart: RRR, no thrills, no rubs, no gallops Abdomen: Normal bowel sounds, Soft, No tenderness, No hepatosplenomegaly Extremities: No clubbing, No cyanosis, No edema Skin: No rashes, No breakdown, No significant lesion Neuro: Normal speech, Sensation intact, Cranial nerves 3-12 NL Psych/Mental Status: Mental status NL, Mood NL ASSESSMENT/PLAN Assessment/Plan Pt is a 76yo CF admitted for COPD Exacerbation 1)COPD Exacerbation- pt started on Prednisone and Levaquin; lungs still are very tight with wheezing and rhonchi, will change to IV Methylprednisolone. Will get PT/OT to work with her as well. 2)HTN- was holding pt's medications because of normal blood pressure. Will resume her Norvasc 5mg and Metoprolol 50mg ER but continue to hold her HCTZ/ Lisinopril 3)DM2- previously moderately controlled with HbA1C of 7.6 01/11. Repeat still pending. Will continue pt's Amaryl 1mg and pt also has SSI available 4)Hypothyroidism- well controlled with TSH of 1.295 this admission. Will continue pt's Levothyroxine 88mcg 5)Hypokalemia- resolved Problems: COMMENT Lab Laboratory Tests Test 12/17/16 12:48 12/17/16 17:31 12/17/16 20:39 12/17/16 22:45 Glucose (Fingerstick) 301mg/dL (70-99) 233mg/dL (70-99) 488mg/dL (70-99) 332mg/dL (70-99) Test 12/18/16 03:34 12/18/16 07:32 Thyroid Stimulating Hormone (TSH) 1.295uIU/mL (0.358-3.74) Glucose (Fingerstick) 253mg/dL (70-99) JOSE ANGEL HERRON MD Dec 18, 2016 09:38
[2016-12-18] MEDS: METOPROLOL SUCC 24HR ER 50 MG TAB.ER.24H. PO SCH (09:42)
[2016-12-18] MEDS: AMLODIPINE BESYLATE 5 MG TABLET PO SCH (09:43)
[2016-12-18 10:35] VITALS: BP 141/66
[2016-12-18] MEDS: methylPREDNISolone SOD SUCC PF 40 MG/ML VIAL. IV SCH ×2 (13:06→20:33)
[2016-12-18 15:00] VITALS: BP 141/71
[2016-12-18 19:25] VITALS: BP 137/43
[2016-12-18] MEDS: ATORVASTATIN CALCIUM 20 MG TABLET PO SCH (20:32)
[2016-12-18] MEDS: ZOLPIDEM 5 MG TABLET. PO PRN (22:52)
[2016-12-18] MEDS ORDERED: INSULIN ASPART 300 UNITS/3 ML INSULN.PEN SQ ONE (23:00)
[2016-12-18 23:35] VITALS: BP 147/71
[2016-12-19 03:40] VITALS: BP 152/83
[2016-12-19] MEDS: LEVOFLOXACIN 500 MG TABLET PO SCH (06:16)
[2016-12-19] MEDS: LEVOTHYROXINE 88 MCG TABLET PO SCH (06:16)
[2016-12-19] MEDS: methylPREDNISolone SOD SUCC PF 40 MG/ML VIAL. IV SCH ×3 (06:17→21:14)
[2016-12-19 07:00] VITALS: BP 124/82
--- NOTE | 2016-12-19 08:17 | PDOC ---
SUBJECTIVE Subjective Pt states that she is feeling a little bit better; breathing getting a little bit better, but still not feeling great. Her wheezing has improved. She is open to going to a SNF on discharge. OBJECTIVE Vital Signs Vital Signs Date Time Temp Pulse Resp B/P Pulse Ox O2 Delivery O2 Flow Rate FiO2 12/19/16 03:40 97.6 56 18 152/83 97 Room Air 97.6 12/18/16 23:35 97.6 58 18 147/71 94 Room Air 97.6 12/18/16 20:00 Room Air 12/18/16 19:25 97.6 59 18 137/43 95 Room Air 97.6 12/18/16 15:00 97.9 61 20 141/71 93 Room Air 97.9 12/18/16 10:35 97.7 60 18 141/66 95 Room Air 97.7 12/18/16 09:43 65 147/72 12/18/16 09:42 65 147/72 I & O Intake and Output 12/19/16 07:00 Intake Total 1850 ml Balance 1850 ml Intake Oral 1850 ml # Voids 8 # Bowel Movements 1 PHYSICAL EXAM Physical Exam General: Alert, Oriented X3, Cooperative, No acute distress, Other (slight resting tremor) HEENT: Atraumatic, PERRLA, EOMI, Mucous membr. moist/pink Lungs: end expiratory wheezes only heard in upper lobes, regular breathing rate and effort Heart: RRR, no thrills, no rubs, no gallops Abdomen: Normal bowel sounds, Soft, No tenderness, No hepatosplenomegaly Extremities: No clubbing, No cyanosis, No edema Skin: No rashes, No breakdown, No significant lesion Neuro: Normal speech, Sensation intact, Cranial nerves 3-12 NL Psych/Mental Status: Mental status NL, Mood NL ASSESSMENT/PLAN Assessment/Plan Pt is a 76yo CF admitted for COPD Exacerbation 1)COPD Exacerbation- pt currently on Solumedrol and Levaquin. Pt's aeration has improved as has her wheezing. Will continue one more day on Solumedrol; discussed possible D/C to SNF tomorrow. PT/OT following 2)HTN- was holding pt's medications because of normal blood pressure on admission. Pt's Norvasc 5mg and Metoprolol 50mg ER were resumed yesterday, will resume pt's HCTZ 25mg and hold Lisinopril 20mg 3)DM2- uncontrolled with HbA1C of 8.5 this admission. Will increase pt's Amaryl to 2mg qday. Continue SSI 4)Hypothyroidism- well controlled with TSH of 1.295 this admission. Will continue pt's Levothyroxine 88mcg 5)Hypokalemia- resolved Problems: COMMENT Lab Laboratory Tests Test 12/18/16 12:12 12/18/16 16:53 12/18/16 21:57 12/19/16 05:53 Glucose (Fingerstick) 258mg/dL (70-99) 231mg/dL (70-99) 419mg/dL (70-99) 300mg/dL (70-99) JOSE ANGEL HERRON MD Dec 19, 2016 08:17
[2016-12-19] MEDS: AMLODIPINE BESYLATE 5 MG TABLET PO SCH (08:24)
[2016-12-19] MEDS: ASPIRIN 81 MG TAB.CHEW PO SCH (08:25)
[2016-12-19] MEDS: GLIMEPIRIDE 2 MG TABLET PO SCH (08:25)
[2016-12-19] MEDS: METOPROLOL SUCC 24HR ER 50 MG TAB.ER.24H. PO SCH (08:25)
[2016-12-19] MEDS: HYDROCHLOROTHIAZIDE 25 MG TABLET PO SCH (08:31)
[2016-12-19] MEDS: INSULIN ASPART 300 UNITS/3 ML INSULN.PEN SQ SCH ×3 (08:32→17:00)
[2016-12-19 11:00] VITALS: BP 141/64
[2016-12-19] MEDS ORDERED: INSULIN ASPART 300 UNITS/3 ML INSULN.PEN SQ ONE (14:00)
[2016-12-19 15:00] VITALS: BP 132/82
[2016-12-19 19:00] VITALS: BP 135/75
[2016-12-19] MEDS: ATORVASTATIN CALCIUM 20 MG TABLET PO SCH (21:14)
[2016-12-19] MEDS: ZOLPIDEM 5 MG TABLET. PO PRN (21:14)
[2016-12-19 23:00] VITALS: BP 130/78
[2016-12-20 03:00] VITALS: BP 123/89
[2016-12-20] MEDS: methylPREDNISolone SOD SUCC PF 40 MG/ML VIAL. IV SCH ×3 (06:01→21:41)
[2016-12-20] MEDS: LEVOTHYROXINE 88 MCG TABLET PO SCH (06:01)
[2016-12-20] MEDS: LEVOFLOXACIN 500 MG TABLET PO SCH (06:01)
[2016-12-20 07:00] VITALS: BP 168/75
[2016-12-20] MEDS: HYDROCHLOROTHIAZIDE 25 MG TABLET PO SCH (08:40)
[2016-12-20] MEDS: AMLODIPINE BESYLATE 5 MG TABLET PO SCH (08:40)
[2016-12-20] MEDS: ASPIRIN 81 MG TAB.CHEW PO SCH (08:40)
[2016-12-20] MEDS: GLIMEPIRIDE 2 MG TABLET PO SCH (08:40)
[2016-12-20] MEDS: METOPROLOL SUCC 24HR ER 50 MG TAB.ER.24H. PO SCH (08:40)
[2016-12-20] MEDS: INSULIN ASPART 300 UNITS/3 ML INSULN.PEN SQ SCH ×4 (08:43→21:47)
[2016-12-20 11:00] VITALS: BP 155/62
[2016-12-20] MEDS ORDERED: INSULIN ASPART 300 UNITS/3 ML INSULN.PEN SQ ONE (12:30)
[2016-12-20] MEDS ORDERED: INSU100I17 SQ (12:41)
[2016-12-20] MEDS ORDERED: METO-269 PO (12:41)
[2016-12-20] MEDS ORDERED: LISI1TAB7 PO (12:41)
[2016-12-20] MEDS ORDERED: PRED-299 PO (12:41)
[2016-12-20] MEDS ORDERED: Promethazine Hcl/Codeine PO (12:41)
[2016-12-20] MEDS ORDERED: GLIM2TAB PO (12:41)
[2016-12-20] MEDS ORDERED: LEVO500T38 PO (12:41)
--- NOTE | 2016-12-20 12:48 | PDOC3 ---
Discharge Summary* Date of Admission: Dec 17, 2016 Date of Discharge: Dec 20, 2016 Admitting Diagnosis Problems Medical Problems: (1) COPD exacerbation Status: Acute (2) Hypokalemia Status: Acute (3) Weakness Status: Acute Final Diagnosis COPD Exacerbation, weakness, HTN, DM2, Hypothyroidism, Hypokalemia- resolved CONSULTS None Procedures CXR- WNL Brief Hospital Course DISCHARGE PHYSICAL EXAM General: Alert, Oriented X3, Cooperative, No acute distress, Other (slight resting tremor) HEENT: Atraumatic, PERRLA, EOMI, Mucous membr. moist/pink Lungs: CTAB, regular breathing rate and effort Heart: RRR, no thrills, no rubs, no gallops Abdomen: Normal bowel sounds, Soft, No tenderness, No hepatosplenomegaly Extremities: No clubbing, No cyanosis, No edema Skin: No rashes, No breakdown, No significant lesion Neuro: Normal speech, Sensation intact, Cranial nerves 3-12 NL Psych/Mental Status: Mental status NL, Mood NL Pt is a 76yo CF admitted for COPD Exacerbation 1)COPD Exacerbation- pt currently on Solumedrol and Levaquin, transition to po Prednisone on discharge. Pt's lungs are now clear. She is improving but not quite ready to go home. D/C to SNF. 2)HTN- will discharge pt home on Norvasc 10mg, Metoprolol 50mg ER, and HCTZ/ Lisinopril 25/20mg. 3)DM2- uncontrolled with HbA1C of 8.5 this admission. Increased pt's Amaryl to 2mg qday. Continue SSI 4)Hypothyroidism- well controlled with TSH of 1.295 this admission. Continued pt's Levothyroxine 88mcg 5)Hypokalemia- resolved Disposition/Orders: D/C to Another Facility CONDITION AT DISCHARGE: Improved, Stable Diet: 2 gr sodium, Consistent Carbohydrate Scheduled Amlodipine Besylate (Amlodipine Besylate) 10 MG PO DAILY (Reported) Azithromycin (Zithromax) 1 PKG PO UD Glimepiride (Glimepiride) 1 MG PO DAILY (Reported) Levothyroxine Sodium (Levothyroxine Sodium) 1 TAB PO DAILY (Reported) Pravastatin Sodium (Pravastatin Sodium) 1 TAB PO DAILY (Reported) Scheduled PRN Albuterol Sulfate (Proventil Hfa Inhaler) 1 PUFF IH PRN Q4HRS PRN PRN asthma Prednisone (Prednisone) 2 TAB PO DAILY PRN PRN COUGH Miscellaneous Medications Aspirin (Aspirin) 81 MG PO (Reported) Discontinued Medications Metformin Hcl (Metformin Hcl) 1,000 MG PO DAILYWBKFT (Reported) PCP Follow up with Dr. Salinas within 7 days of discharge from SNF Time Spent Total time spent with patient [] minutes for coordination of care, counseling, and education. JOSE ANGEL HERRON MD Dec 20, 2016 12:48
[2016-12-20 15:00] VITALS: BP 133/67
[2016-12-20 19:00] VITALS: BP 150/72
[2016-12-20] MEDS: ATORVASTATIN CALCIUM 20 MG TABLET PO SCH (21:41)
[2016-12-20 23:00] VITALS: BP 146/84
[2016-12-20] MEDS: ZOLPIDEM 5 MG TABLET. PO PRN (23:10)
[2016-12-21 03:00] VITALS: BP 144/72
[2016-12-21] MEDS: LEVOTHYROXINE 88 MCG TABLET PO SCH (06:15)
[2016-12-21] MEDS: methylPREDNISolone SOD SUCC PF 40 MG/ML VIAL. IV SCH ×2 (06:15→14:00)
[2016-12-21] MEDS: LEVOFLOXACIN 500 MG TABLET PO SCH (06:15)
[2016-12-21 07:00] VITALS: BP 119/81
[2016-12-21] MEDS: GLIMEPIRIDE 2 MG TABLET PO SCH (08:46)
[2016-12-21] MEDS: AMLODIPINE BESYLATE 5 MG TABLET PO SCH (08:47)
[2016-12-21] MEDS: HYDROCHLOROTHIAZIDE 25 MG TABLET PO SCH (08:47)
[2016-12-21] MEDS: METOPROLOL SUCC 24HR ER 50 MG TAB.ER.24H. PO SCH (08:47)
[2016-12-21] MEDS: ASPIRIN 81 MG TAB.CHEW PO SCH (08:47)
[2016-12-21] MEDS: INSULIN ASPART 300 UNITS/3 ML INSULN.PEN SQ SCH ×2 (08:50→12:57)
[2016-12-21 11:00] VITALS: BP 140/66
[2016-12-27] MEDS ORDERED: PIOG15TA21 PO (07:34)
[2016-12-27] MEDS ORDERED: INSU100I27 SQ (07:34)
[2016-12-27] MEDS ORDERED: INSU100I17 SQ (07:34)
== END 2016-12-21 16:00 | disposition home health service (06) | DRG 191 ==
LOC: ER 13:43 → 6 SOUTH 14:54
PROVIDERS: ADMIT Family Medicine; ATTEND Family Medicine
DX: J44.1 Chronic obstructive pulmonary disease with (acute) exacerbation (principal); E87.1 Hypo-osmolality and hyponatremia; E03.9 Hypothyroidism, unspecified; I25.10 Atherosclerotic heart disease of native coronary artery without angina pectoris; I10 Essential (primary) hypertension; E78.00 Pure hypercholesterolemia, unspecified; E11.9 Type 2 diabetes mellitus without complications; M19.90 Unspecified osteoarthritis, unspecified site; E87.6 Hypokalemia; E21.3 Hyperparathyroidism, unspecified; E78.5 Hyperlipidemia, unspecified; J06.9 Acute upper respiratory infection, unspecified; Z79.899 Other long term (current) drug therapy; Z90.49 Acquired absence of other specified parts of digestive tract; Z82.49 Family history of ischemic heart disease and other diseases of the circulatory system; Z83.3 Family history of diabetes mellitus; Z95.1 Presence of aortocoronary bypass graft
CPT/HCPCS: 36415; 71010; 80048; 81001; 82947; 83036; 84443; 84484; 85027; 93005; 94250; 94640; 96360; J1815; J2920; J7030; J7512; J7620; 97110; 97116; 97530; 99285-25

== ENCOUNTER 2016-12-22 18:23 | Inpatient (IN) | payer MEDICARE, OTHER ==
[~2016-12-22] VITALS: Ht 167.6 cm; Wt 93.4 kg
[~2016-12-22 18:23] MED LIST changes: +ASPI81TA2 PO; +GLIM1TAB2 PO; +GLIM2TAB PO; +INSU100I17 SQ; +LEVO500T38 PO; +LISI1TAB7 PO; +METO-269 PO; +PRED-299 PO; +Promethazine Hcl/Codeine PO
--- NOTE | 2016-12-22 19:45 | PHYS DOC ---
Past Medical History Past Medical History: Arthritis, CAD, Diabetes-Type II, High Cholesterol, Hypertension, Hypothyroid Past Surgical History: Appendectomy, Cholecystectomy, Coronary Bypass Surgery Alcohol Use: None Drug Use: None Adult General Chief Complaint Chief Complaint: HYPERGLYCEMIA HPI HPI Patient is a 76 year old female who presents with hyperglycemia. Patient had been admitted to the hospital recently for COPD exacerbation, was discharged yesterday. She presents again today with complaint of elevated blood glucose level and not feeling well in general. Patient unable to further describe why she is not feeling well; she denies any pain, shortness of breath, nausea or other complaints that are list. She says her blood glucose level has been running in the 400s today. She does have a history of diabetes, for which she had been taking metformin in the past. During her hospitalization she transitioned to a glimepiride, which she says that she took today.. Review of Systems Review of Systems Constitutional: "Not feeling well". Denies fever or chills Eyes: Denies change in visual acuity or eye pain HENT: Denies nasal congestion or sore throat Respiratory: Cough. Denies shortness of breath Cardiovascular: Denies chest pain GI: Denies abdominal pain, nausea, vomiting, bloody stools or diarrhea : Denies dysuria or hematuria Musculoskeletal: Denies back pain or joint pain Integument: Denies rash or skin lesions Neurologic: Denies headache, focal weakness or sensory changes Current Medications Current Medications Current Medications Medications (Trade) Dose Ordered Sig/Vicky Start Time Stop Time Status Last Admin Dose Admin Sodium Chloride (Iv Sodium Chloride 0.9% 1000ml Bag) 1,000 ml @ 1,000 mls/hr Q1H 12/22/16 19:47 12/22/16 20:46 DC 12/22/16 20:22 1,000 MLS/HR Allergies Allergies Allergies Coded Allergies Type Severity Reaction Last Updated Verified No Known Drug Allergies 01/07/16 No Physical Exam Physical Exam Constitutional: Well developed, well nourished, no acute distress, non-toxic appearance HENT: Normocephalic, atraumatic, bilateral external ears normal Eyes: EOMI, conjunctiva normal, no discharge Neck: Normal range of motion, no stridor Cardiovascular: Heart rate normal, regular rhythm, no murmur Lungs & Thorax: Occasional cough, coarse breath sounds R>L Abdomen: Bowel sounds normal, soft, non-distended, no TTP Skin: Warm, dry, no erythema, no rash Extremities: No obvious deformity, no edema Neurologic: Alert and oriented X 3, no gross deficits noted Current Patient Data Vital Signs Vital Signs Date Time Temp Pulse Resp B/P Pulse Ox O2 Delivery O2 Flow Rate FiO2 12/22/16 22:35 70 197/91 95 Room Air 12/22/16 19:36 97.7 16 97.7 Lab Values Laboratory Tests Test 12/22/16 19:36 12/22/16 20:00 12/22/16 20:25 12/22/16 21:21 Glucose (Fingerstick) 399mg/dL (70-99) H White Blood Count 13.1x10^3/uL (4.0-11.0) #H Red Blood Count 5.13x10^6/uL (3.50-5.40) Hemoglobin 15.0g/dL (12.0-15.5) Hematocrit 44.5% (36.0-47.0) Mean Corpuscular Volume 87fL (79-100) Mean Corpuscular Hemoglobin 29pg (25-35) Mean Corpuscular Hemoglobin Concent 34g/dL (31-37) Red Cell Distribution Width 13.5% (11.5-14.5) Platelet Count 305x10^3/uL (140-400) Neutrophils (%) (Auto) 87% (31-73) H Lymphocytes (%) (Auto) 8% (24-48) L Monocytes (%) (Auto) 5% (0-9) Eosinophils (%) (Auto) 0% (0-3) Basophils (%) (Auto) 0% (0-3) Neutrophils # (Auto) 11.4x10^3uL (1.8-7.7) H Lymphocytes # (Auto) 1.0x10^3/uL (1.0-4.8) Monocytes # (Auto) 0.7x10^3/uL (0.0-1.1) Eosinophils # (Auto) 0.0x10^3/uL (0.0-0.7) Basophils # (Auto) 0.0x10^3/uL (0.0-0.2) Segmented Neutrophils % 89% (35-66) H Band Neutrophils % 2% (0-9) Lymphocytes % 7% (24-48) L Monocytes % 2% (0-10) Platelet Estimate Adequate (ADEQUATE) Urine Collection Type Unknown Urine Color Yellow Urine Clarity Clear Urine pH 6.0 Urine Specific [place] 1.015 Urine Protein Negativemg/dL (NEG-TRACE) Urine Glucose (UA) >=1000mg/dL (NEG) Urine Ketones (Stick) Negativemg/dL (NEG) Urine Blood Negative (NEG) Urine Nitrite Negative (NEG) Urine Bilirubin Negative (NEG) Urine Urobilinogen Dipstick 0.2mg/dL (0.2 mg/dL) Urine Leukocyte Esterase Trace (NEG) Urine RBC 0/HPF (0-2) Urine WBC 5-10/HPF (0-4) Urine Bacteria 0/HPF (0-FEW) Influenza Type A Antigen Negative (NEGATIVE) Influenza Type B Antigen Negative (NEGATIVE) Sodium Level 133mmol/L (136-145) L Potassium Level 3.7mmol/L (3.5-5.1) Chloride Level 96mmol/L (98-107) L Carbon Dioxide Level 27mmol/L (21-32) Anion Gap 10 (6-14) Blood Urea Nitrogen 53mg/dL (7-20) H Creatinine 1.6mg/dL (0.6-1.0) H Estimated GFR (Cockcroft-Gault) 31.3 BUN/Creatinine Ratio 33 (6-20) H Glucose Level 378mg/dL (70-99) H Calcium Level 9.9mg/dL (8.5-10.1) Total Bilirubin 0.4mg/dL (0.2-1.0) Aspartate Amino Transferase (AST) 17U/L (15-37) Alanine Aminotransferase (ALT) 39U/L (14-59) Alkaline Phosphatase 81U/L (46-116) Total Protein 7.2g/dL (6.4-8.2) Albumin 3.2g/dL (3.4-5.0) L Albumin/Globulin Ratio 0.8 (1.0-1.7) L Laboratory Tests 12/22/16 20:00 Laboratory Tests 12/22/16 21:21 EKG EKG EKG (my read): sinus rhythm, rate 69, borderline LAD, nonspecific ST changes Radiology/Procedures Radiology/Procedures CXR (my read): No significant change from prior Course & Med Decision Making Course & Med Decision Making Pertinent Labs and Imaging studies reviewed. (See chart for details) Patient is 76-year-old female who presents with hyperglycemia and complained of generally not feeling well. Upper glycemia likely due to recent steroid use for COPD exacerbation. Will check labs, EKG, chest x-ray to evaluate. IV fluid bolus ordered. Labs notable for hyperglycemia. More notably, BUN and creatinine elevated. BUN nearly 3 times prior value, creatinine elevated higher than any previous values. Discussed results with patient and daughter. Discussed Dr. Zuniga., Will admit under her care for further evaluation and treatment. Dragon Disclaimer Dragon Disclaimer This electronic medical record was generated, in whole or in part, using a voice recognition dictation system. Departure Departure Impression: Primary Impression: WARREN (acute kidney injury) Disposition: ADMITTED INPATIENT Admitting Physician: Sammi Zuniga Condition: STABLE Referrals: ESTEVAN CARRANZA MD (PCP) SHONNA LARA MD Dec 22, 2016 19:45
[2016-12-22] MEDS ORDERED: IV NORMAL SALINE 1000ML BAG 1,000 ML IV SCH (19:47)
[2016-12-22 20:12] LABS: BASO % 0 % (0-3); EOS % 0 % (0-3); HEMATOCRIT 44.5 % (36.0-47.0); LYMPH % 8 % (24-48); MEAN CORPUSCULAR HEMOGLOBIN 29 pg (25-35); MEAN CORPUSCULAR HGB CONC 34 g/dL (31-37); MEAN CORPUSCULAR VOLUME 87 fL (79-100); MONO % 5 % (0-9); NEUT % 87 % (31-73); PLATELET COUNT 305 x10^3/uL (140-400); RED BLOOD COUNT 5.13 x10^6/uL (3.50-5.40); RED CELL DISTRIBUTION WIDTH 13.5 % (11.5-14.5); WHITE BLOOD COUNT 13.1 x10^3/uL (4.0-11.0)
[2016-12-22 20:35] LABS: BILIRUBIN,URINE NEGATIVE (NEG); GLUCOSE,URINE >=1000 mg/dL (NEG); NITRITE,URINE NEGATIVE (NEG); PROTEIN,URINE NEGATIVE (NEG-TRACE); UROBILINOGEN,URINE 0.2 mg/dL (0.2 mg/dL)
[2016-12-22 20:43] LABS: BACTERIA,URINE 0 /HPF (0-FEW); RBC,URINE 0 /HPF (0-2)
[2016-12-22 20:52] LABS: OBC FLU VALID
[2016-12-22 20:54] LABS: PLT ESTIMATE ADEQUATE (ADEQUATE)
[2016-12-22 22:01] LABS: CALCIUM 9.9 mg/dL (8.5-10.1); CREATININE 1.6 mg/dL (0.6-1.0); GFR 31.3; POTASSIUM 3.7 mmol/L (3.5-5.1)
[2016-12-22 22:09] LABS: ALBUMIN 3.2 g/dL (3.4-5.0); ALBUMIN/GLOBULIN RATIO 0.8 (1.0-1.7); TOTAL BILIRUBIN 0.4 mg/dL (0.2-1.0); TOTAL PROTEIN 7.2 g/dL (6.4-8.2)
[2016-12-22] MEDS: IV NORMAL SALINE 1000ML BAG 1,000 ML IV SCH (22:45)
[2016-12-22] MEDS ORDERED: MORPHINE SULFATE 2 MG/ML DISP.SYRIN. IV PRN (22:45)
[2016-12-22] MEDS ORDERED: DEXTROSE 50% 25 GM / 50ML DISP.SYRIN. IV PRN (22:45)
[2016-12-22] MEDS ORDERED: ACETAMINOPHEN 325 MG TABLET. PO PRN (22:45)
[2016-12-22] MEDS ORDERED: ONDANSETRON PF 4 MG/2 ML VIAL. IV PRN (22:45)
[2016-12-22 23:36] VITALS: BP 186/90
[2016-12-22 23:37] VITALS: BP 186/90
[2016-12-23 02:57] VITALS: BP 131/74
[2016-12-23] MEDS: IV NORMAL SALINE 1000ML BAG 1,000 ML IV SCH ×2 (06:26→14:07)
[2016-12-23 07:00] VITALS: BP 168/79
[2016-12-23 07:04] LABS: BASO # 0.1 x10^3/uL (0.0-0.2); BASO % 1 % (0-3); EOS % 0 % (0-3); HEMATOCRIT 40.6 % (36.0-47.0); HEMOGLOBIN 13.7 g/dL (12.0-15.5); LYMPH # 2.4 x10^3/uL (1.0-4.8); LYMPH % 22 % (24-48); MEAN CORPUSCULAR HEMOGLOBIN 30 pg (25-35); MEAN CORPUSCULAR HGB CONC 34 g/dL (31-37); MEAN CORPUSCULAR VOLUME 88 fL (79-100); MONO % 8 % (0-9); NEUT % 69 % (31-73); PLATELET COUNT 235 x10^3/uL (140-400); RED BLOOD COUNT 4.64 x10^6/uL (3.50-5.40); RED CELL DISTRIBUTION WIDTH 13.6 % (11.5-14.5); WHITE BLOOD COUNT 10.9 x10^3/uL (4.0-11.0)
--- NOTE | 2016-12-23 07:13 | EKG ---
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
[2016-12-23 07:14] LABS: CALCIUM 9.4 mg/dL (8.5-10.1); CREATININE 1.4 mg/dL (0.6-1.0); GFR 36.5; POTASSIUM 3.3 mmol/L (3.5-5.1)
[2016-12-23] MEDS: INSULIN ASPART 300 UNITS/3 ML INSULN.PEN SQ SCH ×5 (08:48→17:00)
--- NOTE | 2016-12-23 08:51 | RAD ---
Portable chest, 12/22/2016: History: Cough, shortness of breath Comparison is made to a study from 12/16/2016. There has been a previous median sternotomy. The heart is at the upper limits of normal in size. The pulmonary vascularity is normal. There is scarring over the pulmonary apices. No acute infiltrates are seen. There is no evidence of pleural fluid. A moderate thoracic scoliosis is present. IMPRESSION: No acute cardiopulmonary abnormality is detected.
[2016-12-23 11:00] VITALS: BP 130/73
[2016-12-23] MEDS ORDERED: IV NORMAL SALINE 1000ML BAG 1,000 ML IV SCH (14:31)
[2016-12-23] MEDS ORDERED: DEXTROSE 50% 25 GM / 50ML DISP.SYRIN. IV PRN (14:45)
--- NOTE | 2016-12-23 14:48 | PDOC ---
PROGRESS NOTES Subjective Subjective Patient denies pain, just doesn't feel well. Objective Objective Vital Signs Date Time Temp Pulse Resp B/P Pulse Ox O2 Delivery O2 Flow Rate FiO2 12/23/16 11:00 97.8 66 20 130/73 94 Room Air 97.8 Intake and Output 12/23/16 07:00 Intake Total 2150 ml Output Total 1100 ml Balance 1050 ml Intake Oral 350 ml IV Total 1800 ml Output Urine Total 1100 ml Physical Exam Abdomen: Normal bowel sounds, Soft, No tenderness Heart: Regular rate Extremities: No edema General: Alert, Oriented X3, No acute distress Lungs: Other (mild expiratory wheezes and coarse BS bilateral bases) Assessment Assessment Problems Medical Problems: (1) WARREN (acute kidney injury) Status: Acute Plan Plan of Care 1. Acute kidney injury with prerenal azotemia and CKD III - lab shows improvement overnight with IVF. Patient is also taking po fluids well. Continue IVF until this evening. 2. AE COPD - patient was being treated for this during her last hospitalization. Will continue the Levaquin and po Prednisone she was discharged on. 3. DM2 with hyperglycemia - patient's Amaryl was increased during last hospitalization. Metformin had been recently stopped in the office as her Creatinine was elevated. Will add Actos to the Amaryl. Continue SS insulin also. 4. HTN - resume home meds. 5. hypothyroidism - recent TSH was WNL, continue present dose. Comment Review of Relevant I have reviewed the following items anna (where applicable) has been applied. Labs Laboratory Tests Test 12/22/16 19:36 12/22/16 20:00 12/22/16 20:25 12/22/16 21:21 Glucose (Fingerstick) 399mg/dL (70-99) White Blood Count 13.1x10^3/uL (4.0-11.0) Red Blood Count 5.13x10^6/uL (3.50-5.40) Hemoglobin 15.0g/dL (12.0-15.5) Hematocrit 44.5% (36.0-47.0) Mean Corpuscular Volume 87fL (79-100) Mean Corpuscular Hemoglobin 29pg (25-35) Mean Corpuscular Hemoglobin Concent 34g/dL (31-37) Red Cell Distribution Width 13.5% (11.5-14.5) Platelet Count 305x10^3/uL (140-400) Neutrophils (%) (Auto) 87% (31-73) Lymphocytes (%) (Auto) 8% (24-48) Monocytes (%) (Auto) 5% (0-9) Eosinophils (%) (Auto) 0% (0-3) Basophils (%) (Auto) 0% (0-3) Neutrophils # (Auto) 11.4x10^3uL (1.8-7.7) Lymphocytes # (Auto) 1.0x10^3/uL (1.0-4.8) Monocytes # (Auto) 0.7x10^3/uL (0.0-1.1) Eosinophils # (Auto) 0.0x10^3/uL (0.0-0.7) Basophils # (Auto) 0.0x10^3/uL (0.0-0.2) Segmented Neutrophils % 89% (35-66) Band Neutrophils % 2% (0-9) Lymphocytes % 7% (24-48) Monocytes % 2% (0-10) Platelet Estimate Adequate (ADEQUATE) Urine Collection Type Unknown Urine Color Yellow Urine Clarity Clear Urine pH 6.0 Urine Specific Gleason 1.015 Urine Protein Negativemg/dL (NEG-TRACE) Urine Glucose (UA) >=1000mg/dL (NEG) Urine Ketones (Stick) Negativemg/dL (NEG) Urine Blood Negative (NEG) Urine Nitrite Negative (NEG) Urine Bilirubin Negative (NEG) Urine Urobilinogen Dipstick 0.2mg/dL (0.2 mg/dL) Urine Leukocyte Esterase Trace (NEG) Urine RBC 0/HPF (0-2) Urine WBC 5-10/HPF (0-4) Urine Bacteria 0/HPF (0-FEW) Influenza Type A Antigen Negative (NEGATIVE) Influenza Type B Antigen Negative (NEGATIVE) Sodium Level 133mmol/L (136-145) Potassium Level 3.7mmol/L (3.5-5.1) Chloride Level 96mmol/L (98-107) Carbon Dioxide Level 27mmol/L (21-32) Anion Gap 10 (6-14) Blood Urea Nitrogen 53mg/dL (7-20) Creatinine 1.6mg/dL (0.6-1.0) Estimated GFR (Cockcroft-Gault) 31.3 BUN/Creatinine Ratio 33 (6-20) Glucose Level 378mg/dL (70-99) Calcium Level 9.9mg/dL (8.5-10.1) Total Bilirubin 0.4mg/dL (0.2-1.0) Aspartate Amino Transf (AST/SGOT) 17U/L (15-37) Alanine Aminotransferase (ALT/SGPT) 39U/L (14-59) Alkaline Phosphatase 81U/L (46-116) Total Protein 7.2g/dL (6.4-8.2) Albumin 3.2g/dL (3.4-5.0) Albumin/Globulin Ratio 0.8 (1.0-1.7) Test 12/23/16 06:55 12/23/16 08:07 12/23/16 10:36 White Blood Count 10.9x10^3/uL (4.0-11.0) Red Blood Count 4.64x10^6/uL (3.50-5.40) Hemoglobin 13.7g/dL (12.0-15.5) Hematocrit 40.6% (36.0-47.0) Mean Corpuscular Volume 88fL (79-100) Mean Corpuscular Hemoglobin 30pg (25-35) Mean Corpuscular Hemoglobin Concent 34g/dL (31-37) Red Cell Distribution Width 13.6% (11.5-14.5) Platelet Count 235x10^3/uL (140-400) Neutrophils (%) (Auto) 69% (31-73) Lymphocytes (%) (Auto) 22% (24-48) Monocytes (%) (Auto) 8% (0-9) Eosinophils (%) (Auto) 0% (0-3) Basophils (%) (Auto) 1% (0-3) Neutrophils # (Auto) 7.5x10^3uL (1.8-7.7) Lymphocytes # (Auto) 2.4x10^3/uL (1.0-4.8) Monocytes # (Auto) 0.9x10^3/uL (0.0-1.1) Eosinophils # (Auto) 0.0x10^3/uL (0.0-0.7) Basophils # (Auto) 0.1x10^3/uL (0.0-0.2) Sodium Level 139mmol/L (136-145) Potassium Level 3.3mmol/L (3.5-5.1) Chloride Level 102mmol/L (98-107) Carbon Dioxide Level 30mmol/L (21-32) Anion Gap 7 (6-14) Blood Urea Nitrogen 40mg/dL (7-20) Creatinine 1.4mg/dL (0.6-1.0) Estimated GFR (Cockcroft-Gault) 36.5 Glucose Level 234mg/dL (70-99) Calcium Level 9.4mg/dL (8.5-10.1) Glucose (Fingerstick) 191mg/dL (70-99) 244mg/dL (70-99) Laboratory Tests Test 12/22/16 19:36 12/22/16 20:00 12/22/16 20:25 12/22/16 21:21 Glucose (Fingerstick) 399mg/dL (70-99) White Blood Count 13.1x10^3/uL (4.0-11.0) Red Blood Count 5.13x10^6/uL (3.50-5.40) Hemoglobin 15.0g/dL (12.0-15.5) Hematocrit 44.5% (36.0-47.0) Mean Corpuscular Volume 87fL (79-100) Mean Corpuscular Hemoglobin 29pg (25-35) Mean Corpuscular Hemoglobin Concent 34g/dL (31-37) Red Cell Distribution Width 13.5% (11.5-14.5) Platelet Count 305x10^3/uL (140-400) Neutrophils (%) (Auto) 87% (31-73) Lymphocytes (%) (Auto) 8% (24-48) Monocytes (%) (Auto) 5% (0-9) Eosinophils (%) (Auto) 0% (0-3) Basophils (%) (Auto) 0% (0-3) Neutrophils # (Auto) 11.4x10^3uL (1.8-7.7) Lymphocytes # (Auto) 1.0x10^3/uL (1.0-4.8) Monocytes # (Auto) 0.7x10^3/uL (0.0-1.1) Eosinophils # (Auto) 0.0x10^3/uL (0.0-0.7) Basophils # (Auto) 0.0x10^3/uL (0.0-0.2) Segmented Neutrophils % 89% (35-66) Band Neutrophils % 2% (0-9) Lymphocytes % 7% (24-48) Monocytes % 2% (0-10) Platelet Estimate Adequate (ADEQUATE) Urine Collection Type Unknown Urine Color Yellow Urine Clarity Clear Urine pH 6.0 Urine Specific Gleason 1.015 Urine Protein Negativemg/dL (NEG-TRACE) Urine Glucose (UA) >=1000mg/dL (NEG) Urine Ketones (Stick) Negativemg/dL (NEG) Urine Blood Negative (NEG) Urine Nitrite Negative (NEG) Urine Bilirubin Negative (NEG) Urine Urobilinogen Dipstick 0.2mg/dL (0.2 mg/dL) Urine Leukocyte Esterase Trace (NEG) Urine RBC 0/HPF (0-2) Urine WBC 5-10/HPF (0-4) Urine Bacteria 0/HPF (0-FEW) Influenza Type A Antigen Negative (NEGATIVE) Influenza Type B Antigen Negative (NEGATIVE) Sodium Level 133mmol/L (136-145) Potassium Level 3.7mmol/L (3.5-5.1) Chloride Level 96mmol/L (98-107) Carbon Dioxide Level 27mmol/L (21-32) Anion Gap 10 (6-14) Blood Urea Nitrogen 53mg/dL (7-20) Creatinine 1.6mg/dL (0.6-1.0) Estimated GFR (Cockcroft-Gault) 31.3 BUN/Creatinine Ratio 33 (6-20) Glucose Level 378mg/dL (70-99) Calcium Level 9.9mg/dL (8.5-10.1) Total Bilirubin 0.4mg/dL (0.2-1.0) Aspartate Amino Transf (AST/SGOT) 17U/L (15-37) Alanine Aminotransferase (ALT/SGPT) 39U/L (14-59) Alkaline Phosphatase 81U/L (46-116) Total Protein 7.2g/dL (6.4-8.2) Albumin 3.2g/dL (3.4-5.0) Albumin/Globulin Ratio 0.8 (1.0-1.7) Test 12/23/16 06:55 12/23/16 08:07 12/23/16 10:36 White Blood Count 10.9x10^3/uL (4.0-11.0) Red Blood Count 4.64x10^6/uL (3.50-5.40) Hemoglobin 13.7g/dL (12.0-15.5) Hematocrit 40.6% (36.0-47.0) Mean Corpuscular Volume 88fL (79-100) Mean Corpuscular Hemoglobin 30pg (25-35) Mean Corpuscular Hemoglobin Concent 34g/dL (31-37) Red Cell Distribution Width 13.6% (11.5-14.5) Platelet Count 235x10^3/uL (140-400) Neutrophils (%) (Auto) 69% (31-73) Lymphocytes (%) (Auto) 22% (24-48) Monocytes (%) (Auto) 8% (0-9) Eosinophils (%) (Auto) 0% (0-3) Basophils (%) (Auto) 1% (0-3) Neutrophils # (Auto) 7.5x10^3uL (1.8-7.7) Lymphocytes # (Auto) 2.4x10^3/uL (1.0-4.8) Monocytes # (Auto) 0.9x10^3/uL (0.0-1.1) Eosinophils # (Auto) 0.0x10^3/uL (0.0-0.7) Basophils # (Auto) 0.1x10^3/uL (0.0-0.2) Sodium Level 139mmol/L (136-145) Potassium Level 3.3mmol/L (3.5-5.1) Chloride Level 102mmol/L (98-107) Carbon Dioxide Level 30mmol/L (21-32) Anion Gap 7 (6-14) Blood Urea Nitrogen 40mg/dL (7-20) Creatinine 1.4mg/dL (0.6-1.0) Estimated GFR (Cockcroft-Gault) 36.5 Glucose Level 234mg/dL (70-99) Calcium Level 9.4mg/dL (8.5-10.1) Glucose (Fingerstick) 191mg/dL (70-99) 244mg/dL (70-99) Medications Current Medications Sodium Chloride (Iv Sodium Chloride 0.9% 1000ml Bag) 1,000 ml @ 1,000 mls/hr Q1H IV Last administered on 12/22/16 20:22; Start 12/22/16 at 19:47; Stop at 20:46; Status DC Ondansetron HCl (Zofran) 4 mg PRN Q8HRS PRN IV NAUSEA/VOMITING; Start 12/22/16 at 22:45; Stop 12/23/16 at 22:44 Morphine Sulfate 2 mg 2 mg PRN Q2HR PRN IV PAIN; Start 12/22/16 at 22:45; Stop 12/23/16 at 22:44 Sodium Chloride (Iv Sodium Chloride 0.9% 1000ml Bag) 1,000 ml @ 125 mls/hr Q8H IV Last administered on 12/23/16 14:07; Start 12/22/16 at 22:45; Stop at 14:41; Status DC Acetaminophen (Tylenol) 650 mg PRN Q4HRS PRN PO FEVER; Start 12/22/16 at 22:45 ; Stop 12/23/16 at 22:44 Insulin Aspart (Novolog) 0-7 UNITS TIDWMEALS SQ Last administered on 12/23/16 11:42; Start 12/23/16 at 08:00 Dextrose 12.5 gm 12.5 gm PRN Q15MIN PRN IV SEE COMMENTS; Start 12/22/16 at 22: 45 Sodium Chloride (Iv Sodium Chloride 0.9% 1000ml Bag) 1,000 ml @ 125 mls/hr Q8H IV ; Start 12/23/16 at 14:31; Stop 12/23/16 at 17:00; Status UNV Amlodipine Besylate (Norvasc) 10 mg DAILY PO ; Start 12/24/16 at 09:00; Status UNV Aspirin (Children'S Aspirin) 81 mg DAILY PO ; Start 12/24/16 at 09:00; Status UNV Glimepiride (Amaryl) 2 mg DAILY PO ; Start 12/24/16 at 09:00; Status UNV Levofloxacin (Levaquin) 500 mg DAILY06 PO ; Start 12/23/16 at 14:45; Status UNV Levothyroxine Sodium (Synthroid) 88 mcg DAILY PO ; Start 12/24/16 at 09:00; Status UNV Metoprolol Succinate (Toprol Xl) 50 mg DAILY PO ; Start 12/24/16 at 09:00; Status UNV Prednisone (Prednisone) 60 mg DAILY PO ; Start 12/23/16 at 14:45; Status UNV Non-Formulary Medication 1 tab DAILY PO ; Start 12/24/16 at 09:00; Status UNV Lisinopril (Prinivil) 20 mg DAILY PO ; Start 12/23/16 at 14:45; Status UNV Insulin Aspart (Novolog) 0-9 UNITS TIDWMEALS SQ ; Start 12/23/16 at 17:00; Status UNV Dextrose 12.5 gm PRN Q15MIN PRN IV SEE COMMENTS; Start 12/23/16 at 14:45; Status UNV Active Scripts Active Deltasone (Prednisone) 20 Mg Tablet 60 Mg PO DAILY 4 Days Toprol Xl (Metoprolol Succinate) 50 Mg Tab.er.24h 50 Mg PO DAILY 30 Days Levaquin (Levofloxacin) 500 Mg Tablet 500 Mg PO DAILY06 4 Days Lisinopril-Hctz 20-25 Mg Tab (Lisinopril/Hydrochlorothiazide) 1 Each Tablet 1 Tab PO DAILY Amaryl (Glimepiride) 2 Mg Tablet 2 Mg PO DAILY Proventil Hfa Inhaler (Albuterol Sulfate) 6.7 Gm Hfa.aer.ad 1 Puff IH PRN Q4HRS PRN Reported Aspirin 81 Mg Tab.chew 81 Mg PO Amlodipine Besylate 10 Mg Tablet 10 Mg PO DAILY Pravastatin Sodium 40 Mg Tablet 1 Tab PO DAILY Levothyroxine Sodium 88 Mcg Tablet 1 Tab PO DAILY Vitals/I & O Vital Sign - Last 24 Hours 12/22/16 12/22/16 12/22/16 12/22/16 19:36 20:05 20:35 21:05 Temp 97.7 97.7 Pulse 72 67 69 66 Resp 16 B/P 209/88 160/77 172/83 177/81 Pulse Ox 94 93 94 94 O2 Delivery Room Air Room Air Room Air Room Air 12/22/16 12/22/16 12/22/16 12/22/16 21:35 22:05 22:35 23:05 Pulse 63 63 70 68 B/P 175/79 170/81 197/91 193/87 Pulse Ox 93 92 95 94 O2 Delivery Room Air Room Air Room Air Room Air 12/22/16 12/22/16 12/22/16 12/23/16 23:30 23:36 23:37 02:57 Temp 97.7 97.7 97.5 97.7 97.7 97.5 Pulse 78 78 69 Resp 18 18 18 B/P 186/90 186/90 131/74 Pulse Ox 96 96 94 O2 Delivery Room Air Room Air Room Air Room Air 12/23/16 12/23/16 12/23/16 07:00 08:00 11:00 Temp 98.2 97.8 98.2 97.8 Pulse 67 66 Resp 20 20 B/P 168/79 130/73 Pulse Ox 94 94 O2 Delivery Room Air Room Air Room Air Intake and Output 12/22/16 12/22/16 12/23/16 15:00 23:00 07:00 Intake Total 2150 ml Output Total 1100 ml Balance 1050 ml DERRLEL CORONA MD Dec 23, 2016 14:48
[2016-12-23 15:00] VITALS: BP 131/58
[2016-12-23] MEDS: IPRATRPIUM/ALBUTEROL 0.5/2.5MG 3 ML NEBU. NEB SCH ×2 (16:00→19:55)
[2016-12-23] MEDS: LEVOFLOXACIN 500 MG TABLET PO SCH (16:16)
[2016-12-23] MEDS: PIOGLITAZONE 15 MG TABLET. PO SCH (16:17)
[2016-12-23] MEDS: LISINOPRIL 20 MG TABLET PO SCH (16:17)
[2016-12-23] MEDS: PREDNISONE 20 MG TABLET PO SCH (16:17)
--- NOTE | 2016-12-23 17:06 | HP ---
ADMIT DATE: 12/23/2016 CHIEF COMPLAINT: Hyperglycemia and malaise. HISTORY OF PRESENT ILLNESS: The patient is a 76-year-old female who had just been discharged from [facility] on the day prior to this admission after treatment for COPD exacerbation. She had apparently wanted to go to half-way, but did not qualify for it as she was ambulating well without assistance. She therefore returned home alone. The patient reports that she was taking the medication as advised at her discharge, but noticed that her blood sugars were quite elevated. She felt weak and ill, although without any other specific symptoms. She was concerned about her blood sugar being so high. When she presented to the Emergency Room, she was found to have elevated glucose of 378 and some prerenal azotemia was also seen on her lab. Chest x-ray was unremarkable. She was started on IV fluids and admitted for further treatment. PAST MEDICAL HISTORY: COPD with recent exacerbation, diabetes mellitus type 2, hypertension, coronary artery disease, hypothyroidism and chronic kidney disease. PAST SURGICAL HISTORY: CABG in 2001, bladder surgery. ALLERGIES: The patient has no known drug allergies. HOME MEDICATIONS: Albuterol as needed; amlodipine 10 mg daily; aspirin 81 mg daily; Amaryl 2 mg daily, this was recently increased from 1 mg daily; Levaquin 500 mg daily; levothyroxine 88 mcg daily, lisinopril/hydrochlorothiazide 20/25 one daily, Toprol-XL 50 mg daily, pravastatin 40 mg at bedtime and prednisone 60 mg daily. FAMILY HISTORY: Noncontributory. SOCIAL HISTORY: The patient is . She lives by herself. She has a long smoking history, but quit smoking cigarettes many years ago. She does not drink alcohol to excess. REVIEW OF SYSTEMS: The patient has not had fever or chills. She denies chest pain or palpitations. She has some cough and chest congestion, which was not too troublesome for her. She denies abdominal pain, nausea or vomiting. She feels that her oral intake on the day of admission was probably not as good as it usually is. She has not had dysuria. She was taking all the medication that she was prescribed. PHYSICAL EXAMINATION: GENERAL: The patient is alert and oriented x 3, resting comfortably in bed in no acute distress. HEENT: PERRL, EOMI, sclerae clear. Oropharynx: Mucous membranes moist. NECK: Supple, without lymphadenopathy. CHEST: Mild expiratory wheezes and coarse breath sounds in the bilateral bases, otherwise clear to auscultation. CARDIOVASCULAR: Regular rhythm without murmur. ABDOMEN: Soft, nontender, normoactive bowel sounds are present. EXTREMITIES: Without edema. ASSESSMENT AND PLAN: 1. Acute kidney injury with prerenal azotemia and chronic kidney disease stage III. The patient's labs showed improvement since admission with a decrease in the BUN and creatinine. We will continue her IV fluids until this evening. She is also encouraged to increase her oral fluids. She does appear to have chronic kidney disease stage 3 based on lab done in our office during the past year. 2. Acute exacerbation of chronic obstructive pulmonary disease. The patient does have an abnormal chest exam. We will continue the Levaquin and oral prednisone on which she was discharged. 3. Diabetes mellitus type 2 with hyperglycemia. The patient's Amaryl was increased during her last hospitalization. We will continue this. Her metformin had been recently discontinued in our office when her creatinine was found to be more elevated on lab. We will add Actos while she is here and continue sliding scale insulin. 4. Hypertension. We will resume her home medications with the exception of the hydrochlorothiazide. 5. Hypothyroidism. Recent TSH was within normal limits. We will continue her present dose. DERRELL CORONA MD DR: DULCE/tre JOB#: [id number] / [id number] [place]
[2016-12-23 19:00] VITALS: BP 158/78
[2016-12-23] MEDS: ATORVASTATIN CALCIUM 10 MG TABLET. PO SCH (22:32)
[2016-12-23 23:10] VITALS: BP 130/66
[2016-12-24 03:28] VITALS: BP 113/57
[2016-12-24] MEDS: LEVOFLOXACIN 500 MG TABLET PO SCH (06:13)
[2016-12-24] MEDS: LEVOTHYROXINE 88 MCG TABLET PO SCH (06:13)
[2016-12-24 07:00] VITALS: BP 157/76
[2016-12-24] MEDS: IPRATRPIUM/ALBUTEROL 0.5/2.5MG 3 ML NEBU. NEB SCH ×4 (07:27→19:26)
[2016-12-24] MEDS: PIOGLITAZONE 15 MG TABLET. PO SCH (08:56)
[2016-12-24] MEDS: GLIMEPIRIDE 2 MG TABLET PO SCH (08:56)
[2016-12-24] MEDS: METOPROLOL SUCC 24HR ER 50 MG TAB.ER.24H. PO SCH (08:57)
[2016-12-24] MEDS: LISINOPRIL 20 MG TABLET PO SCH (08:57)
[2016-12-24] MEDS: PREDNISONE 20 MG TABLET PO SCH (08:57)
[2016-12-24] MEDS: ASPIRIN 81 MG TAB.CHEW PO SCH (08:57)
[2016-12-24] MEDS: AMLODIPINE BESYLATE 10 MG TABLET PO SCH (08:58)
[2016-12-24] MEDS: INSULIN ASPART 300 UNITS/3 ML INSULN.PEN SQ SCH ×6 (09:03→17:00)
[2016-12-24 09:36] LABS: CALCIUM 9.4 mg/dL (8.5-10.1); CREATININE 1.3 mg/dL (0.6-1.0); GFR 39.7; POTASSIUM 3.8 mmol/L (3.5-5.1)
[2016-12-24 11:00] VITALS: BP 135/64
--- NOTE | 2016-12-24 12:55 | PDOC ---
PROGRESS NOTES Subjective Subjective Patient reports she felt "shaky" earlier today. Feels breathing is a little better. Objective Objective Vital Signs Date Time Temp Pulse Resp B/P Pulse Ox O2 Delivery O2 Flow Rate FiO2 12/24/16 11:00 97.5 73 20 135/64 95 Room Air 97.5 Intake and Output 12/24/16 07:00 Intake Total 2520 ml Output Total 2200 ml Balance 320 ml Intake Oral 2520 ml Output Urine Total 2200 ml Physical Exam Abdomen: Normal bowel sounds, Soft, No tenderness Heart: Regular rate Extremities: No edema General: Alert, Oriented X3, No acute distress Lungs: Other (moderate expiratory wheezes and few coarse BS bilateral bases) Assessment Assessment Problems Medical Problems: (1) WARREN (acute kidney injury) Status: Acute Plan Plan of Care 1. Acute kidney injury and prerenal azotemia with CKD III - lab improved, appears about at baseline. Continue po fluids. 2. AE COPD - chest exam is not much improved from yesterday. Continue po Prednisone and Levaquin. Patient is not hypoxic on RA. 3. DM2 - glucose still quite elevated. Continue po meds and SS, start Levemir tonight. Patient very reluctant to consider ongoing tx with insulin. 4. HTN - controlled, continue present meds. Comment Review of Relevant I have reviewed the following items anna (where applicable) has been applied. Labs Laboratory Tests Test 12/22/16 19:36 12/22/16 20:00 12/22/16 20:25 12/22/16 21:21 Glucose (Fingerstick) 399mg/dL (70-99) White Blood Count 13.1x10^3/uL (4.0-11.0) Red Blood Count 5.13x10^6/uL (3.50-5.40) Hemoglobin 15.0g/dL (12.0-15.5) Hematocrit 44.5% (36.0-47.0) Mean Corpuscular Volume 87fL (79-100) Mean Corpuscular Hemoglobin 29pg (25-35) Mean Corpuscular Hemoglobin Concent 34g/dL (31-37) Red Cell Distribution Width 13.5% (11.5-14.5) Platelet Count 305x10^3/uL (140-400) Neutrophils (%) (Auto) 87% (31-73) Lymphocytes (%) (Auto) 8% (24-48) Monocytes (%) (Auto) 5% (0-9) Eosinophils (%) (Auto) 0% (0-3) Basophils (%) (Auto) 0% (0-3) Neutrophils # (Auto) 11.4x10^3uL (1.8-7.7) Lymphocytes # (Auto) 1.0x10^3/uL (1.0-4.8) Monocytes # (Auto) 0.7x10^3/uL (0.0-1.1) Eosinophils # (Auto) 0.0x10^3/uL (0.0-0.7) Basophils # (Auto) 0.0x10^3/uL (0.0-0.2) Segmented Neutrophils % 89% (35-66) Band Neutrophils % 2% (0-9) Lymphocytes % 7% (24-48) Monocytes % 2% (0-10) Platelet Estimate Adequate (ADEQUATE) Urine Collection Type Unknown Urine Color Yellow Urine Clarity Clear Urine pH 6.0 Urine Specific [place] 1.015 Urine Protein Negativemg/dL (NEG-TRACE) Urine Glucose (UA) >=1000mg/dL (NEG) Urine Ketones (Stick) Negativemg/dL (NEG) Urine Blood Negative (NEG) Urine Nitrite Negative (NEG) Urine Bilirubin Negative (NEG) Urine Urobilinogen Dipstick 0.2mg/dL (0.2 mg/dL) Urine Leukocyte Esterase Trace (NEG) Urine RBC 0/HPF (0-2) Urine WBC 5-10/HPF (0-4) Urine Bacteria 0/HPF (0-FEW) Influenza Type A Antigen Negative (NEGATIVE) Influenza Type B Antigen Negative (NEGATIVE) Sodium Level 133mmol/L (136-145) Potassium Level 3.7mmol/L (3.5-5.1) Chloride Level 96mmol/L (98-107) Carbon Dioxide Level 27mmol/L (21-32) Anion Gap 10 (6-14) Blood Urea Nitrogen 53mg/dL (7-20) Creatinine 1.6mg/dL (0.6-1.0) Estimated GFR (Cockcroft-Gault) 31.3 BUN/Creatinine Ratio 33 (6-20) Glucose Level 378mg/dL (70-99) Calcium Level 9.9mg/dL (8.5-10.1) Total Bilirubin 0.4mg/dL (0.2-1.0) Aspartate Amino Transf (AST/SGOT) 17U/L (15-37) Alanine Aminotransferase (ALT/SGPT) 39U/L (14-59) Alkaline Phosphatase 81U/L (46-116) Total Protein 7.2g/dL (6.4-8.2) Albumin 3.2g/dL (3.4-5.0) Albumin/Globulin Ratio 0.8 (1.0-1.7) Test 12/23/16 06:55 12/23/16 08:07 12/23/16 10:36 12/23/16 16:14 White Blood Count 10.9x10^3/uL (4.0-11.0) Red Blood Count 4.64x10^6/uL (3.50-5.40) Hemoglobin 13.7g/dL (12.0-15.5) Hematocrit 40.6% (36.0-47.0) Mean Corpuscular Volume 88fL (79-100) Mean Corpuscular Hemoglobin 30pg (25-35) Mean Corpuscular Hemoglobin Concent 34g/dL (31-37) Red Cell Distribution Width 13.6% (11.5-14.5) Platelet Count 235x10^3/uL (140-400) Neutrophils (%) (Auto) 69% (31-73) Lymphocytes (%) (Auto) 22% (24-48) Monocytes (%) (Auto) 8% (0-9) Eosinophils (%) (Auto) 0% (0-3) Basophils (%) (Auto) 1% (0-3) Neutrophils # (Auto) 7.5x10^3uL (1.8-7.7) Lymphocytes # (Auto) 2.4x10^3/uL (1.0-4.8) Monocytes # (Auto) 0.9x10^3/uL (0.0-1.1) Eosinophils # (Auto) 0.0x10^3/uL (0.0-0.7) Basophils # (Auto) 0.1x10^3/uL (0.0-0.2) Sodium Level 139mmol/L (136-145) Potassium Level 3.3mmol/L (3.5-5.1) Chloride Level 102mmol/L (98-107) Carbon Dioxide Level 30mmol/L (21-32) Anion Gap 7 (6-14) Blood Urea Nitrogen 40mg/dL (7-20) Creatinine 1.4mg/dL (0.6-1.0) Estimated GFR (Cockcroft-Gault) 36.5 Glucose Level 234mg/dL (70-99) Calcium Level 9.4mg/dL (8.5-10.1) Glucose (Fingerstick) 191mg/dL (70-99) 244mg/dL (70-99) 234mg/dL (70-99) Test 12/23/16 20:28 12/24/16 07:23 12/24/16 09:04 12/24/16 10:36 Glucose (Fingerstick) 358mg/dL (70-99) 276mg/dL (70-99) 327mg/dL (70-99) Sodium Level 137mmol/L (136-145) Potassium Level 3.8mmol/L (3.5-5.1) Chloride Level 101mmol/L (98-107) Carbon Dioxide Level 25mmol/L (21-32) Anion Gap 11 (6-14) Blood Urea Nitrogen 31mg/dL (7-20) Creatinine 1.3mg/dL (0.6-1.0) Estimated GFR (Cockcroft-Gault) 39.7 Glucose Level 323mg/dL (70-99) Calcium Level 9.4mg/dL (8.5-10.1) Laboratory Tests Test 12/23/16 16:14 12/23/16 20:28 12/24/16 07:23 12/24/16 09:04 Glucose (Fingerstick) 234mg/dL (70-99) 358mg/dL (70-99) 276mg/dL (70-99) Sodium Level 137mmol/L (136-145) Potassium Level 3.8mmol/L (3.5-5.1) Chloride Level 101mmol/L (98-107) Carbon Dioxide Level 25mmol/L (21-32) Anion Gap 11 (6-14) Blood Urea Nitrogen 31mg/dL (7-20) Creatinine 1.3mg/dL (0.6-1.0) Estimated GFR (Cockcroft-Gault) 39.7 Glucose Level 323mg/dL (70-99) Calcium Level 9.4mg/dL (8.5-10.1) Test 12/24/16 10:36 Glucose (Fingerstick) 327mg/dL (70-99) Microbiology 12/22/16 Urine Culture - Preliminary, Resulted 12/22/16 Urine Culture Result 1 (NATHANAEL) - Preliminary, Resulted Medications Current Medications Sodium Chloride (Iv Sodium Chloride 0.9% 1000ml Bag) 1,000 ml @ 1,000 mls/hr Q1H IV Last administered on 12/22/16 20:22; Start 12/22/16 at 19:47; Stop at 20:46; Status DC Ondansetron HCl (Zofran) 4 mg PRN Q8HRS PRN IV NAUSEA/VOMITING; Start 12/22/16 at 22:45; Stop 12/23/16 at 22:44; Status DC Morphine Sulfate 2 mg 2 mg PRN Q2HR PRN IV PAIN; Start 12/22/16 at 22:45; Stop 12/23/16 at 22:44; Status DC Sodium Chloride (Iv Sodium Chloride 0.9% 1000ml Bag) 1,000 ml @ 125 mls/hr Q8H IV Last administered on 12/23/16 14:07; Start 12/22/16 at 22:45; Stop at 14:41; Status DC Acetaminophen (Tylenol) 650 mg PRN Q4HRS PRN PO FEVER; Start 12/22/16 at 22:45 ; Stop 12/23/16 at 22:44; Status DC Insulin Aspart (Novolog) 0-7 UNITS TIDWMEALS SQ Last administered on 12/24/16 11:27; Start 12/23/16 at 08:00 Dextrose 12.5 gm 12.5 gm PRN Q15MIN PRN IV SEE COMMENTS; Start 12/22/16 at 22: 45 Sodium Chloride (Iv Sodium Chloride 0.9% 1000ml Bag) 1,000 ml @ 125 mls/hr Q8H IV Last administered on 12/23/16 16:17; Start 12/23/16 at 14:31; Stop at 17:10; Status DC Amlodipine Besylate (Norvasc) 10 mg DAILY PO Last administered on 12/24/16 08: 58; Start 12/24/16 at 09:00 Aspirin (Children'S Aspirin) 81 mg DAILY PO Last administered on 12/24/16 08: 57; Start 12/24/16 at 09:00 Glimepiride (Amaryl) 2 mg DAILY PO Last administered on 12/24/16 08:56; Start 12/24/16 at 09:00 Levofloxacin (Levaquin) 500 mg DAILY06 PO Last administered on 12/24/16 06:13 ; Start 12/23/16 at 14:45 Levothyroxine Sodium (Synthroid) 88 mcg DAILY07 PO Last administered on 06:13; Start 12/24/16 at 07:00 Metoprolol Succinate (Toprol Xl) 50 mg DAILY PO Last administered on 12/24/16 08:57; Start 12/24/16 at 09:00 Prednisone (Prednisone) 60 mg DAILY PO Last administered on 12/24/16 08:57; Start 12/23/16 at 14:45 Atorvastatin Calcium (Lipitor) 10 mg QHS PO Last administered on 12/23/16 22: 32; Start 12/23/16 at 21:00 Lisinopril (Prinivil) 20 mg DAILY PO Last administered on 12/24/16 08:57; Start 12/23/16 at 14:45 Insulin Aspart (Novolog) 0-9 UNITS TIDWMEALS SQ Last administered on 12/24/16 09:03; Start 12/23/16 at 17:00 Dextrose 12.5 gm PRN Q15MIN PRN IV SEE COMMENTS; Start 12/23/16 at 14:45 Pioglitazone HCl (Actos) 30 mg DAILY PO Last administered on 12/24/16 08:56; Start 12/23/16 at 14:45 Albuterol/ Ipratropium (Duoneb) 3 ml RTQID NEB Last administered on 12/24/16 07:27; Start 12/23/16 at 16:00 Active Scripts Active Deltasone (Prednisone) 20 Mg Tablet 60 Mg PO DAILY 4 Days Toprol Xl (Metoprolol Succinate) 50 Mg Tab.er.24h 50 Mg PO DAILY 30 Days Levaquin (Levofloxacin) 500 Mg Tablet 500 Mg PO DAILY06 4 Days Lisinopril-Hctz 20-25 Mg Tab (Lisinopril/Hydrochlorothiazide) 1 Each Tablet 1 Tab PO DAILY Amaryl (Glimepiride) 2 Mg Tablet 2 Mg PO DAILY Proventil Hfa Inhaler (Albuterol Sulfate) 6.7 Gm Hfa.aer.ad 1 Puff IH PRN Q4HRS PRN Reported Aspirin 81 Mg Tab.chew 81 Mg PO Amlodipine Besylate 10 Mg Tablet 10 Mg PO DAILY Pravastatin Sodium 40 Mg Tablet 1 Tab PO DAILY Levothyroxine Sodium 88 Mcg Tablet 1 Tab PO DAILY Vitals/I & O Vital Sign - Last 24 Hours 12/23/16 12/23/16 12/23/16 12/23/16 15:00 16:17 19:00 19:58 Temp 97.5 97.5 97.5 97.5 Pulse 74 74 72 Resp 20 18 B/P 131/58 131/58 158/78 Pulse Ox 93 96 95 O2 Delivery Room Air Room Air Room Air 12/23/16 12/23/16 12/24/16 12/24/16 20:00 23:10 03:28 07:00 Temp 98.3 97.5 97.5 98.3 97.5 97.5 Pulse 88 60 74 Resp 20 18 20 B/P 130/66 113/57 157/76 Pulse Ox 94 93 97 O2 Delivery Room Air Room Air Room Air Room Air 12/24/16 12/24/16 12/24/16 12/24/16 07:27 08:00 08:57 08:57 Pulse 74 74 B/P 157/76 157/76 Pulse Ox 95 O2 Delivery Room Air Room Air 12/24/16 12/24/16 08:58 11:00 Temp 97.5 97.5 Pulse 74 73 Resp 20 B/P 157/76 135/64 Pulse Ox 95 O2 Delivery Room Air Intake and Output 12/23/16 12/23/16 12/24/16 15:00 23:00 07:00 Intake Total 400 ml 1520 ml 600 ml Output Total 500 ml 1400 ml 300 ml Balance -100 ml 120 ml 300 ml DERRELL CORONA MD Dec 24, 2016 12:55
[2016-12-24] MEDS ORDERED: DIPHENHYDRAMINE HCL 25 MG CAPSULE PO PRN (13:00)
[2016-12-24 15:00] VITALS: BP 131/58
[2016-12-24] MEDS ORDERED: INSULIN ASPART 300 UNITS/3 ML INSULN.PEN SQ STA (17:24)
[2016-12-24 19:00] VITALS: BP 108/70
[2016-12-24] MEDS: ATORVASTATIN CALCIUM 10 MG TABLET. PO SCH (20:02)
[2016-12-24] MEDS: INSULIN DETEMIR 300 UNITS/3 ML INSULN.PEN. SQ SCH (21:07)
[2016-12-24 23:06] VITALS: BP 112/69
[2016-12-25 03:39] VITALS: BP 144/60
[2016-12-25 04:20] LABS: CALCIUM 9.6 mg/dL (8.5-10.1); CREATININE 1.2 mg/dL (0.6-1.0); GFR 43.6; POTASSIUM 3.9 mmol/L (3.5-5.1)
[2016-12-25] MEDS: LEVOFLOXACIN 500 MG TABLET PO SCH (06:12)
[2016-12-25] MEDS: LEVOTHYROXINE 88 MCG TABLET PO SCH (06:12)
[2016-12-25 07:00] VITALS: BP 124/55
[2016-12-25] MEDS: IPRATRPIUM/ALBUTEROL 0.5/2.5MG 3 ML NEBU. NEB SCH ×4 (07:08→20:07)
[2016-12-25] MEDS: INSULIN ASPART 300 UNITS/3 ML INSULN.PEN SQ SCH ×6 (08:00→16:33)
[2016-12-25] MEDS: PREDNISONE 20 MG TABLET PO SCH (08:27)
[2016-12-25] MEDS: PIOGLITAZONE 15 MG TABLET. PO SCH (08:28)
[2016-12-25] MEDS: GLIMEPIRIDE 2 MG TABLET PO SCH (08:28)
[2016-12-25] MEDS: AMLODIPINE BESYLATE 10 MG TABLET PO SCH (08:28)
[2016-12-25] MEDS: ASPIRIN 81 MG TAB.CHEW PO SCH (08:28)
[2016-12-25] MEDS: METOPROLOL SUCC 24HR ER 50 MG TAB.ER.24H. PO SCH (08:29)
[2016-12-25] MEDS: LISINOPRIL 20 MG TABLET PO SCH (08:48)
--- NOTE | 2016-12-25 09:01 | PDOC ---
SUBJECTIVE Subjective Pt is known to me from her hospitalization last week. She was discharged and then returned Sunday. She says that she was feeling well Sunday morning, but the longer the day went on the worse she felt. When her blood sugar was in the 400s she decided she needed to come to the hospital. OBJECTIVE Vital Signs Vital Signs Date Time Temp Pulse Resp B/P Pulse Ox O2 Delivery O2 Flow Rate FiO2 12/25/16 08:48 70 124/55 12/25/16 08:29 70 124/55 12/25/16 08:28 70 124/55 12/25/16 07:08 97 Room Air 12/25/16 07:00 97.6 70 20 124/55 96 Room Air 97.6 12/25/16 03:39 98.0 51 18 144/60 96 Room Air 98.0 12/24/16 23:06 98.6 60 18 112/69 96 Room Air 98.6 12/24/16 20:05 Room Air 12/24/16 19:27 96 Room Air 12/24/16 19:00 97.7 69 18 108/70 96 Room Air 97.7 12/24/16 15:27 97 Room Air 12/24/16 15:00 97.8 60 20 131/58 96 Room Air 97.8 12/24/16 11:00 97.5 73 20 135/64 95 Room Air 97.5 12/24/16 08:58 74 157/76 12/24/16 08:57 74 157/76 12/24/16 08:57 74 157/76 I & O Intake and Output 12/25/16 07:00 Intake Total 1180 ml Balance 1180 ml Intake Oral 1180 ml # Voids 2 PHYSICAL EXAM Physical Exam General: Alert, Oriented X3, Cooperative, No acute distress, Other (slight resting tremor) HEENT: Atraumatic, PERRLA, EOMI, Mucous membr. moist/pink Lungs: inspiratory and expiratory wheezes heard throughout, regular breathing rate and effort Heart: RRR, no thrills, no rubs, no gallops Abdomen: Normal bowel sounds, Soft, No tenderness, No hepatosplenomegaly Extremities: No clubbing, No cyanosis, No edema Skin: No rashes, No breakdown, No significant lesion Neuro: Normal speech, Sensation intact, Cranial nerves 3-12 NL Psych/Mental Status: Mental status NL, Mood NL ASSESSMENT/PLAN Assessment/Plan Pt is a 76yo CF admitted for acute renal failure 1)Acute renal failure- prerenal. Resolved. 2)COPD Exacerbation- pt currently on Prednisone and Levaquin. Pt still having wheezing, will start Solumedrol as she seemed to improve with IV steroids last admission. If not improved by tomorrow, will consider CT Chest and pulmo consult. 3)HTN- well controlled on Norvasc 10mg, Metoprolol 50mg ER, and Lisinopril 20mg. HCTZ being held 4)DM2- uncontrolled with HbA1C of 8.5 this last admission, worsened by steroids. Pt receiving Amaryl 2mg, started on Actos 30mg and now receiving Levemir 10 units with SSI (no additional units) 5)Hypothyroidism- well controlled with TSH of 1.295 this admission. Continued pt's Levothyroxine 88mcg Problems: COMMENT Lab Laboratory Tests Test 12/24/16 09:04 12/24/16 10:36 12/24/16 16:35 12/24/16 20:37 Sodium Level 137mmol/L (136-145) Potassium Level 3.8mmol/L (3.5-5.1) Chloride Level 101mmol/L (98-107) Carbon Dioxide Level 25mmol/L (21-32) Anion Gap 11 (6-14) Blood Urea Nitrogen 31mg/dL (7-20) Creatinine 1.3mg/dL (0.6-1.0) Estimated GFR (Cockcroft-Gault) 39.7 Glucose Level 323mg/dL (70-99) Calcium Level 9.4mg/dL (8.5-10.1) Glucose (Fingerstick) 327mg/dL (70-99) 365mg/dL (70-99) 433mg/dL (70-99) Test 12/25/16 03:30 12/25/16 07:22 Sodium Level 140mmol/L (136-145) Potassium Level 3.9mmol/L (3.5-5.1) Chloride Level 105mmol/L (98-107) Carbon Dioxide Level 27mmol/L (21-32) Anion Gap 8 (6-14) Blood Urea Nitrogen 32mg/dL (7-20) Creatinine 1.2mg/dL (0.6-1.0) Estimated GFR (Cockcroft-Gault) 43.6 Glucose Level 182mg/dL (70-99) Calcium Level 9.6mg/dL (8.5-10.1) Glucose (Fingerstick) 94mg/dL (70-99) JOSE ANGEL HERRON MD Dec 25, 2016 09:01
[2016-12-25 11:00] VITALS: BP 140/66
[2016-12-25] MEDS: methylPREDNISolone SOD SUCC PF 40 MG/ML VIAL. IV SCH ×2 (14:06→22:25)
[2016-12-25 15:00] VITALS: BP 135/54
[2016-12-25 19:00] VITALS: BP 124/53
[2016-12-25] MEDS: ATORVASTATIN CALCIUM 10 MG TABLET. PO SCH (20:21)
[2016-12-25] MEDS: INSULIN DETEMIR 300 UNITS/3 ML INSULN.PEN. SQ SCH (22:31)
[2016-12-25 22:54] VITALS: BP 145/64
[2016-12-25] MEDS ORDERED: INSULIN ASPART 300 UNITS/3 ML INSULN.PEN SQ ONE (23:00)
[2016-12-26 03:19] VITALS: BP 125/49
[2016-12-26] MEDS: LEVOFLOXACIN 500 MG TABLET PO SCH (05:59)
[2016-12-26] MEDS: methylPREDNISolone SOD SUCC PF 40 MG/ML VIAL. IV SCH ×2 (06:00→13:46)
[2016-12-26] MEDS: LEVOTHYROXINE 88 MCG TABLET PO SCH (06:00)
[2016-12-26 07:00] VITALS: BP 163/73
[2016-12-26] MEDS: IPRATRPIUM/ALBUTEROL 0.5/2.5MG 3 ML NEBU. NEB SCH ×4 (07:53→20:15)
[2016-12-26] MEDS: PIOGLITAZONE 15 MG TABLET. PO SCH (08:18)
[2016-12-26] MEDS: LISINOPRIL 20 MG TABLET PO SCH (08:19)
[2016-12-26] MEDS: ASPIRIN 81 MG TAB.CHEW PO SCH (08:19)
[2016-12-26] MEDS: AMLODIPINE BESYLATE 10 MG TABLET PO SCH (08:19)
[2016-12-26] MEDS: METOPROLOL SUCC 24HR ER 50 MG TAB.ER.24H. PO SCH (08:20)
[2016-12-26] MEDS: GLIMEPIRIDE 2 MG TABLET PO SCH (08:20)
--- NOTE | 2016-12-26 08:23 | PDOC ---
SUBJECTIVE Subjective Pt states that she is feeling a little bit better. Physical therapy has not started working with her yet; she has not been able to get out of bed on her own. Breathing treatments are causing a lot of shaking which is bothersome to patient, but they have been helpful. She says that she talked to SW yesterday and that they were discussing trying to get her to a group home. OBJECTIVE Vital Signs Vital Signs Date Time Temp Pulse Resp B/P Pulse Ox O2 Delivery O2 Flow Rate FiO2 12/26/16 07:54 98 Room Air 12/26/16 07:00 96.4 62 16 163/73 95 Room Air 96.4 12/26/16 03:19 97.7 59 18 125/49 94 Room Air 97.7 12/25/16 22:54 96.7 75 18 145/64 96 Room Air 96.7 12/25/16 20:09 97 Room Air 12/25/16 20:00 Room Air 12/25/16 19:00 97.5 64 18 124/53 96 Room Air 97.5 12/25/16 15:15 Room Air 12/25/16 15:00 96.6 65 20 135/54 94 Room Air 96.6 12/25/16 11:00 97.4 56 20 140/66 92 Room Air 97.4 12/25/16 10:56 98 Room Air 12/25/16 08:48 70 124/55 12/25/16 08:29 70 124/55 12/25/16 08:28 70 124/55 I & O Intake and Output 12/26/16 07:00 Intake Total 1360 ml Balance 1360 ml Intake Oral 1360 ml # Voids 5 PHYSICAL EXAM Physical Exam General: Alert, Oriented X3, Cooperative, No acute distress, Other (slight resting tremor) HEENT: Atraumatic, PERRLA, EOMI, Mucous membr. moist/pink Lungs: moderately decreased airflow throughout but CTAB, upper airway noise heard, regular breathing rate and effort Heart: RRR, no thrills, no rubs, no gallops Abdomen: Normal bowel sounds, Soft, No tenderness, No hepatosplenomegaly Extremities: No clubbing, No cyanosis, No edema Skin: No rashes, No breakdown, No significant lesion Neuro: Normal speech, Sensation intact, Cranial nerves 3-12 NL Psych/Mental Status: Mental status NL, Mood NL ASSESSMENT/PLAN Assessment/Plan Pt is a 76yo CF admitted for acute renal failure 1)Acute renal failure- prerenal. Resolved. 2)COPD Exacerbation- pt improved with Solumedrol and Levaquin. 3)HTN- pt has been well controlled. BP elevated this morning but has not received am meds. Will continue pt's Norvasc 10mg, Metoprolol 50mg ER, and Lisinopril 20mg. HCTZ being held 4)DM2- uncontrolled with HbA1C of 8.5 this last admission, worsened by steroids. Pt receiving Amaryl 2mg, started on Actos 30mg and now receiving Levemir 10 units with SSI (19 additional units), will increase Levemir to 15 units 5)Hypothyroidism- well controlled with TSH of 1.295 this admission. Continued pt's Levothyroxine 88mcg Problems: COMMENT Lab Laboratory Tests Test 12/25/16 10:40 12/25/16 16:11 12/25/16 20:30 12/26/16 07:33 Glucose (Fingerstick) 207mg/dL (70-99) 303mg/dL (70-99) 428mg/dL (70-99) 226mg/dL (70-99) JOSE ANGEL HERRON MD Dec 26, 2016 08:23
[2016-12-26] MEDS: INSULIN ASPART 300 UNITS/3 ML INSULN.PEN SQ SCH ×3 (08:28→17:08)
[2016-12-26 11:01] VITALS: BP 137/58
[2016-12-26 15:00] VITALS: BP 125/54
[2016-12-26] MEDS: PREDNISONE 20 MG TABLET PO SCH (17:05)
[2016-12-26 19:05] VITALS: BP 121/57
[2016-12-26] MEDS: ATORVASTATIN CALCIUM 10 MG TABLET. PO SCH (20:57)
[2016-12-26] MEDS ORDERED: INSULIN DETEMIR 300 UNITS/3 ML INSULN.PEN. SQ SCH (21:00)
[2016-12-26] MEDS ORDERED: INSULIN ASPART 300 UNITS/3 ML INSULN.PEN SQ ONE (21:15)
[2016-12-26 23:37] VITALS: BP 95/50
[2016-12-27 03:35] VITALS: BP 101/54
[2016-12-27] MEDS: LEVOTHYROXINE 88 MCG TABLET PO SCH (06:29)
[2016-12-27] MEDS: LEVOFLOXACIN 500 MG TABLET PO SCH (06:29)
[2016-12-27] MEDS ORDERED: INSU100I27 SQ (07:34)
[2016-12-27] MEDS ORDERED: PIOG15TA21 PO (07:34)
[2016-12-27] MEDS ORDERED: INSU100I17 SQ (07:34)
--- NOTE | 2016-12-27 07:35 | PDOC3 ---
Discharge Summary* Date of Admission: Dec 22, 2016 Date of Discharge: Dec 27, 2016 Admitting Diagnosis Problems Medical Problems: (1) WARREN (acute kidney injury) Status: Acute (2) COPD with acute exacerbation Status: Acute Final Diagnosis Acute renal failure- prerenal resolved, COPD Exacerbation, HTN, DM2, Hypothyroidism CONSULTS None Procedures CXR- WNL Brief Hospital Course DISCHARGE PHYSICAL EXAM General: Alert, Oriented X3, Cooperative, No acute distress, Other (slight resting tremor) HEENT: Atraumatic, PERRLA, EOMI, Mucous membr. moist/pink Lungs: CTAB, regular breathing rate and effort Heart: RRR, no thrills, no rubs, no gallops Abdomen: Normal bowel sounds, Soft, No tenderness, No hepatosplenomegaly Extremities: No clubbing, No cyanosis, No edema Skin: No rashes, No breakdown, No significant lesion Neuro: Normal speech, Sensation intact, Cranial nerves 3-12 NL Psych/Mental Status: Mental status NL, Mood NL Pt is a 76yo CF admitted for acute renal failure 1)Acute renal failure- prerenal. Resolved. 2)COPD Exacerbation- pt improved with Solumedrol and Levaquin. Will continue po Prednisone for 4 more days and stop the Levaquin on discharge. 3)HTN- pt has been well controlled. BP on the lower side this morning. Will discharge on Norvasc 10mg and Metoprolol 50mg ER. Was holding pt's HCTZ; will now hold Lisinopril. 4)DM2- uncontrolled with HbA1C of 8.5 this last admission, worsened by steroids. Pt receiving Amaryl 2mg, started on Actos 30mg and now receiving Levemir 15 units with SSI (17 additional units), will increase Levemir to 20 units on discharge. 5)Hypothyroidism- well controlled with TSH of 1.295 this admission. Continued pt's Levothyroxine 88mcg Disposition/Orders: D/C to Another Facility CONDITION AT DISCHARGE: Improved, Stable Scheduled Amlodipine Besylate (Amlodipine Besylate) 10 MG PO DAILY (Reported) Glimepiride (Amaryl) 2 MG PO DAILY Insulin Aspart (Novolog Flexpen) 0 UNITS SQ TIDWMEALS Insulin Detemir (Levemir Flextouch) 20 UNITS SQ QHS Levothyroxine Sodium (Levothyroxine Sodium) 1 TAB PO DAILY (Reported) Metoprolol Succinate (Toprol Xl) 50 MG PO DAILY Pioglitazone Hcl (Actos) 30 MG PO DAILY Pravastatin Sodium (Pravastatin Sodium) 1 TAB PO DAILY (Reported) Prednisone (Deltasone) 60 MG PO DAILY Scheduled PRN Albuterol Sulfate (Proventil Hfa Inhaler) 1 PUFF IH PRN Q4HRS PRN PRN asthma Miscellaneous Medications Aspirin (Aspirin) 81 MG PO (Reported) Discontinued Medications Azithromycin (Zithromax) 1 PKG PO UD Glimepiride (Glimepiride) 1 MG PO DAILY (Reported) Levofloxacin (Levaquin) 500 MG PO DAILY06 Lisinopril/Hydrochlorothiazide (Lisinopril-Hctz 20-25 Mg Tab) 1 TAB PO DAILY Prednisone (Prednisone) 2 TAB PO DAILY PRN PRN COUGH PCP Follow up with PCP within 7-10 days of discharge from SNF Time Spent Total time spent with patient [] minutes for coordination of care, counseling, and education. JOSE ANGEL HERRON MD Dec 27, 2016 07:35
[2016-12-27] MEDS: IPRATRPIUM/ALBUTEROL 0.5/2.5MG 3 ML NEBU. NEB SCH ×2 (07:42→11:31)
[2016-12-27 07:58] VITALS: BP 135/75
[2016-12-27] MEDS: INSULIN ASPART 300 UNITS/3 ML INSULN.PEN SQ SCH ×2 (08:00→12:35)
[2016-12-27] MEDS: PIOGLITAZONE 15 MG TABLET. PO SCH (08:04)
[2016-12-27] MEDS: ASPIRIN 81 MG TAB.CHEW PO SCH (08:04)
[2016-12-27] MEDS: PREDNISONE 20 MG TABLET PO SCH (08:04)
[2016-12-27] MEDS: AMLODIPINE BESYLATE 10 MG TABLET PO SCH (08:05)
[2016-12-27] MEDS: LISINOPRIL 20 MG TABLET PO SCH (08:10)
[2016-12-27] MEDS: METOPROLOL SUCC 24HR ER 50 MG TAB.ER.24H. PO SCH (08:11)
[2016-12-27] MEDS: GLIMEPIRIDE 2 MG TABLET PO SCH (08:16)
[2016-12-27 11:40] VITALS: BP 124/54
== END 2016-12-27 12:40 | DRG 683 ==
LOC: ER 18:23 → 5 SOUTH 22:38
PROVIDERS: ADMIT Family Medicine; ATTEND Family Medicine
DX: N17.9 Acute kidney failure, unspecified (principal); J44.1 Chronic obstructive pulmonary disease with (acute) exacerbation; E03.9 Hypothyroidism, unspecified; E11.22 Type 2 diabetes mellitus with diabetic chronic kidney disease; E11.65 Type 2 diabetes mellitus with hyperglycemia; E78.00 Pure hypercholesterolemia, unspecified; I12.9 Hypertensive chronic kidney disease with stage 1 through stage 4 chronic kidney disease, or unspecified chronic kidney disease; I25.10 Atherosclerotic heart disease of native coronary artery without angina pectoris; J45.909 Unspecified asthma, uncomplicated; M19.90 Unspecified osteoarthritis, unspecified site; N18.3 Chronic kidney disease, stage 3 (moderate); Z79.4 Long term (current) use of insulin; Z87.891 Personal history of nicotine dependence; Z90.49 Acquired absence of other specified parts of digestive tract; Z95.1 Presence of aortocoronary bypass graft; Z79.82 Long term (current) use of aspirin; Z79.899 Other long term (current) drug therapy
CPT/HCPCS: 36415; 71010; 80048; 80053; 81001; 82947; 85007; 85027; 87086; 87804; 93005; 94640; 94760; J1815; J2920; J7030; J7512; J7620; 97110; 97530; 99285-25

== ENCOUNTER → 2017-05-22 | Outpatient (CLI) | payer OTHER ==
[~2017-05-22] MED LIST changes: +ASPI-630 PO; -ASPI81TA2 PO; +INSU100I27 SQ; -LEVO500T38 PO; +LEVO500T59 PO; +METF-620 PO; -METF10002 PO; +PIOG15TA42 PO
--- NOTE | 2017-05-22 12:30 | KCIC ---
CT abdomen and pelvis without contrast Indication:Ulcerative colitis.. Symptoms for one year. Diarrhea. Generalized abdomen pain. Postcholecystectomy.. Technique: Contiguous axial images are obtained through the abdomen and pelvis. No intravenous or oral contrast per request. Multiplanar reformatted images obtained. Exposure: One or more of the following individualized dose reduction techniques were utilized for this examination: 1. Automated exposure control 2. Adjustment of the mA and/or kV according to patient size 3. Use of iterative reconstruction technique. Comparison: January 07, 2016. Findings: Urinary tracts: No evidence of urinary tract calculus. No evidence of hydronephrosis or ureteric dilatation. Evaluation of solid viscera, bowel and vasculature is compromised by the noncontrast technique. Lower thorax: Lung bases are clear. Pneumoperitoneum:No gross pneumoperitoneum. Liver: Unremarkable Spleen: Unremarkable Pancreas: Unremarkable Kidneys: Renal cortical atrophy is again seen, greater on the left. Small left parapelvic renal cysts are similar to prior. Adrenals:No evidence of mass. Gallbladder: Surgically absent. Aorta: Calcified and ectatic without focal aneurysm. Lymph nodes: No significant enlargement GI tract: Limited exam without oral contrast. No bowel obstruction. Scattered diverticula within the colon. No evidence of pericolonic inflammation or gross wall thickening. Moderate retained stool in the colon. Appendix: Not clearly seen. Ascites: No gross ascites. Urinary bladder: Not opacified and inadequately distended for evaluation. No evidence of pelvic mass. Bones: Spondylosis. Mild left convexity scoliotic curvature. Findings are similar as prior study. Fatty mass identified within the left gluteus maximums muscle measuring 10.5 cm, most compatible with a lipoma, stable since prior study. There are several small internal septations which may represent septa or traversing muscle fibers. There is an anterior abdominal wall defect in the right inguinal region which barely contains a short segment of colon, without evidence to suggest incarceration or obstruction. IMPRESSION: 1. No acute findings. 2. Fatty mass within the left gluteus nando muscle. 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 This appears stable since prior study. If there has been recent clinical growth or if there are referable symptoms, consider further evaluation with MRI to better exclude a sarcomatous component although that is considered unlikely based on the CT. Electronically signed by: Dayron Sadler MD (05/22/2017 12:27 PM) [id number]
== END | disposition home or self-care (01) ==
LOC: KCIC CT 11:13
PROVIDERS: ATTEND Family Medicine
DX: K51.90 Ulcerative colitis, unspecified, without complications (principal)
CPT/HCPCS: 74176

== ENCOUNTER 2018-04-12 12:23 | Emergency (ER) | payer OTHER ==
[2018-04-12 13:11] LABS: BILIRUBIN,URINE NEGATIVE (NEG); CLARITY,URINE CLEAR; COLOR,URINE YELLOW; GLUCOSE,URINE NEGATIVE (NEG); NITRITE,URINE NEGATIVE (NEG); PROTEIN,URINE NEGATIVE (NEG-TRACE); UROBILINOGEN,URINE 0.2 mg/dL (0.2 mg/dL)
[2018-04-12 13:19] LABS: BACTERIA,URINE 0 /HPF (0-FEW); RBC,URINE 0 /HPF (0-2); SQUAMOUS EPITHELIAL CELL,UR FEW /LPF; WBC,URINE 0 /HPF (0-4)
[2018-04-12 13:31] LABS: ADD MAN DIFF? NO
[2018-04-12 13:32] LABS: BASO % 1 % (0-3); EOS # 0.1 x10^3/uL (0.0-0.7); EOS % 2 % (0-3); HEMOGLOBIN 13.8 g/dL (12.0-15.5); LYMPH # 1.4 x10^3/uL (1.0-4.8); LYMPH % 26 % (24-48); MEAN CORPUSCULAR HEMOGLOBIN 30 pg (25-35); MEAN CORPUSCULAR HGB CONC 34 g/dL (31-37); MEAN CORPUSCULAR VOLUME 89 fL (79-100); MONO # 0.5 x10^3/uL (0.0-1.1); MONO % 9 % (0-9); NEUT # 3.5 x10^3uL (1.8-7.7); NEUT % 63 % (31-73); PLATELET COUNT 208 x10^3/uL (140-400); RED CELL DISTRIBUTION WIDTH 14.1 % (11.5-14.5); WHITE BLOOD COUNT 5.5 x10^3/uL (4.0-11.0)
[2018-04-12 13:41] LABS: ANION GAP 7 (6-14); BLOOD UREA NITROGEN 28 mg/dL (7-20); BUN/CREATININE RATIO 22 (6-20); CALCIUM 10.2 mg/dL (8.5-10.1); CARBON DIOXIDE 31 mmol/L (21-32); CHLORIDE 102 mmol/L (98-107); CREATININE 1.3 mg/dL (0.6-1.0); GFR 39.5; GLUCOSE 101 mg/dL (70-99); POTASSIUM 4.7 mmol/L (3.5-5.1); SODIUM 140 mmol/L (136-145)
[2018-04-12 13:46] LABS: ALBUMIN 3.3 g/dL (3.4-5.0); ALBUMIN/GLOBULIN RATIO 0.7 (1.0-1.7); ALK PHOS 101 U/L (46-116); ALT (SGPT) 28 U/L (14-59); AST (SGOT) 21 U/L (15-37); TOTAL BILIRUBIN 0.4 mg/dL (0.2-1.0); TOTAL PROTEIN 7.8 g/dL (6.4-8.2)
[2018-04-12] MEDS: cloNIDine HCL 0.1 MG TABLET PO (14:35)
== END 2018-04-12 15:25 | disposition home or self-care (01) ==
LOC: ER 15:25
DX: I10 Essential (primary) hypertension (principal); R41.0 Disorientation, unspecified; E78.00 Pure hypercholesterolemia, unspecified; E11.9 Type 2 diabetes mellitus without complications; E03.9 Hypothyroidism, unspecified; I25.10 Atherosclerotic heart disease of native coronary artery without angina pectoris; M19.90 Unspecified osteoarthritis, unspecified site; Z90.49 Acquired absence of other specified parts of digestive tract; Z95.5 Presence of coronary angioplasty implant and graft
CPT/HCPCS: 36415; 80053; 81001; 85025; 93005; 99285-25

== ENCOUNTER → 2019-07-16 | Outpatient (CLI) | payer OTHER ==
[2018-04-12 15:23] VITALS: BP 155/56
[~2019-07-16] MED LIST changes: +ALBU2.5V5 NEB; +ALBU2.5V8 IH; -AMLO10TA2 PO; +AMLO10TA8 PO; +AMLO2.5T2 PO; +AMLO5TAB4 PO; +AMOX1TAB61 PO; +ASPI325T11 PO; +ATOR10TA60 PO; +DICL100G18 TP; +GLIM4TAB2 PO; +IPRA3AMP29 NEB; +LEVO100T5 PO; +LISI-130 PO; +LISI1TAB20 PO; -LISI1TAB7 PO; -METF-620 PO; +METF10007 PO; -PROVENTIL HFA6.7 GM IH; +REGADENOSON 0.4 MG/5 ML DISP.SYRIN. IV ONE; +SULF1TAB24 PO
--- NOTE | 2019-07-16 11:37 | RAD ---
MR#: [id number] Date of Study: 07/16/2019 Ordering Physician: DEEPALI CARRANZA, Referring Physician: KLAUDIA MCNEILL Tech: FANTASMA Viera, ARRT (R) (N) APPROVED REPORT Test Type: Pharmacological Stress Nurse/Tech: Raine Posey R.N. Test Indications: CAD, shortness of breath Cardiac History: CABG 2001, htn, dm Medications: see ehr Medical History: see ehr Resting ECG: sr see printout Resting Heart Rate: 55 bpm Resting Blood Pressure: 153/93mmHg Pretest Chest Pain: No chest pain Nurse/Tech Notes lungs cta, diminished, heart tones regular Consent: The procedure was explained to the patient in lay terms. Informed consent was witnessed. Renny eout was entered into [employer]. History and Stress Test performed by MATI Del Toro Pharm. Details Pharmacologic stress testing was performed using 0.4mg per 5ml of regadenoson given intravenously ove r 7-10 seconds. Stress Symptoms No chest pain or symptoms.Nausea POST EXERCISE Reason for Termination: Infusion complete Target HR: No Max HR: 92 bpm Max Blood Pressure: 193/89mmHg Chest Pain: No. Arrhythmia: Yes. unifocal PVC noted ST Change: Yes. some ST depression noted in II , avf, Lead 5, 6, resolved with during recovery INTERPRETATION Stress EKG Conclusion: No evidence of stress induced ischemia. Imaging Protocol IMAGE PROTOCOL: Rest Tc-99m/stress Tc-99m 1 day Rest: Stress: Viability: Radiopharm.Tc99m KqmmjetfgFm63z Sestamibi Ahrj78kTn 33mCi Img Date 07/16/2019 07/16/2019 Inj-Img Zjdt52ufp. 60min. Rest Admin Site:IV - Right AntecubitalAdministrator:MATI Del Toro Stress Admin Site: IV - Right AntecubitalAdministrator: MATI Del Toro STRESS DATA End Diast. Vol.65.0mlLVEDV index BSA33.0ml End Syst. Vol.16.0mlLVESV index BSA8.0ml Myocardial Zzde378.0gEject. Vgelcmiq19.0% Stress Scores Regional WT1.00Summed WT10.00 Regional WM0.00Summed WM0.00 The rest and stress images show normal perfusion, normal contraction and thickening. LV Perf. Quant 17 Seg. SSS4.00 17 Seg. SRS0.00 17 Seg. SDS4.00 Stress Defect Extent (% LAD)0.00Rest Defect Extent (% LAD)0.00Rev. Defect Extent (% LAD)0.00 Stress Defect Extent (% LCX) 42.50Rest Defect Extent (% LCX)0.00Rev. Defect Extent (% LCX)21.30 Stress Defect Extent (% RCA)0.00Rest Defect Extent (% RCA)0.00Rev. Defect Extent (% RCA)0.00 Stress Defect Extent (% JACKIE)7.60Rest Defect Extent (% JACKIE)0.00Rev. Defect Extent (% JACKIE)3.90 Other Information Quality:Good Risk Assessment: Low Risk Conclusion 1. No evidence of EKG changes with stress testing. 2. Normal perfusion at stress/rest. 3. Low risk study. 4. EF > 60%. Signed by : Deepali Carranza, Electronically Approved : 07/16/2019 11:36:50
== END | disposition home or self-care (01) ==
LOC: NM 07:27
PROVIDERS: ATTEND Internal Medicine Cardiovascular Disease
DX: I25.10 Atherosclerotic heart disease of native coronary artery without angina pectoris (principal); E11.9 Type 2 diabetes mellitus without complications; I10 Essential (primary) hypertension; Z95.1 Presence of aortocoronary bypass graft
CPT/HCPCS: 78452; 93017; A9500; J2785

== ENCOUNTER → 2019-08-26 | Outpatient (CLI) | payer OTHER ==
[2019-04-23 11:00] VITALS: BP 155/56
[~2019-08-26] MED LIST changes: -ALBU2.5V8 IH; -GLIM1TAB2 PO; +GLIM1TAB3 PO; -GLIM4TAB2 PO; +GLIM4TAB4 PO; +PROVENTIL HFA6.7 GM IH; -REGADENOSON 0.4 MG/5 ML DISP.SYRIN. IV ONE
--- NOTE | 2019-08-27 15:51 | RAD ---
DATE: 08/26/2019 2:18 PM EXAM: DIGITAL SCREEN BILAT W/CAD HISTORY: Screening mammograms COMPARISON: March 12, 2018 Bilateral CC and MLO views of the breasts were performed. This study was interpreted with the benefit of Computerized Aided Detection (CAD). FINDINGS: Breast Density: SCATTERED The breast parenchyma shows scattered fibroglandular densities. Breast parenchyma level B Benign appearing calcifications bilaterally. No suspicious masses, microcalcifications or architectural distortion is present to suggest malignancy in either breast. The visualized axillae are unremarkable. IMPRESSION: No mammographic evidence of malignancy. BI-RADS CATEGORY: 2 BENIGN FINDING(S) RECOMMENDED FOLLOW-UP: 12M 12 MONTH FOLLOW-UP Annual screening mammography is recommended, unless clinically indicated sooner based on symptoms or change in physical exam. PQRS compliance statement: Patient information was entered into a reminder system with a target due date one year for the next mammogram. Mammography is a sensitive method for finding small breast cancers, but it does not detect them all and is not a substitute for careful clinical examination. A negative mammogram does not negate a clinically suspicious finding and should not result in delay in biopsying a clinically suspicious abnormality. "Our facility is accredited by the [employer] Mammography Program."
== END | disposition home or self-care (01) ==
LOC: MAMMO 14:15
PROVIDERS: ATTEND Family Medicine
DX: Z12.31 Encounter for screening mammogram for malignant neoplasm of breast (principal); N64.89 Other specified disorders of breast
CPT/HCPCS: 77067

== ENCOUNTER → 2021-01-18 | Outpatient (CLI) | payer OTHER ==
[2019-04-23 11:00] VITALS: BP 155/56
[~2021-01-18] MED LIST changes: +AMLO-187 PO; -AMLO10TA8 PO; -DICL100G18 TP; +DICL100G54 TP; -GLIM1TAB3 PO; +GLIM1TAB7 PO; -GLIM4TAB4 PO; +GLIM4TAB8 PO; -LISI-334 PO; +LISI10TA16 PO; -LISI10TA2 PO; +LISI20TA18 PO
--- NOTE | 2021-01-20 11:11 | RAD ---
DATE: 01/18/2021 1:50 PM EXAM: DIGITAL SCREEN BILAT W/CAD HISTORY: Screening COMPARISON: 08/26/2019 Bilateral full field craniocaudal and mediolateral oblique images were obtained using digital technique. This study was interpreted with the benefit of Computerized Aided Detection (CAD). FINDINGS: Breast Density: FATTY The Breast Parenchyma is primarily fatty replaced. Breast parenchyma level density A. No suspicious masses, microcalcifications or architectural distortion is present to suggest malignancy in either breast. The visualized axillae are unremarkable. IMPRESSION: No mammographic evidence of malignancy. BI-RADS CATEGORY: 1 NEGATIVE RECOMMENDED FOLLOW-UP: 12M 12 MONTH FOLLOW-UP Annual screening mammography is recommended, unless clinically indicated sooner based on symptoms or change in physical exam. PQRS compliance statement: Patient information was entered into a reminder system with a target due date for the next mammogram. Mammography is a sensitive method for finding small breast cancers, but it does not detect them all and is not a substitute for careful clinical examination. A negative mammogram does not negate a clinically suspicious finding and should not result in delay in biopsying a clinically suspicious abnormality. "Our facility is accredited by the [employer] Mammography Program."
== END ==
LOC: MAMMO 13:50
PROVIDERS: ATTEND Family Medicine
DX: Z12.31 Encounter for screening mammogram for malignant neoplasm of breast (principal)
CPT/HCPCS: 77067

== ENCOUNTER → 2021-06-22 | Outpatient (CLI) | payer OTHER ==
[2019-04-23 11:00] VITALS: BP 155/56
--- NOTE | 2021-06-22 22:19 | CARD ---
MR#: [id number] Date of Study: 06/22/2021 Ordering Physician: NEIL ASCENCIO, Referring Physician: NEIL ASCENCIO, Tech: Jocelyne Vargas [facility] APPROVED REPORT EXAM: Two-dimensional and M-mode echocardiogram with Doppler and color Doppler. Other Information Quality : AverageHR: 54bpm Rhythm : NSR INDICATION Cardiac Disease: CAD RISK FACTORS Hypertension Obesity Hyperlipidemia 2D DIMENSIONS RVDd3.3 (2.9-3.5cm)Left Atrium(2D)3.4 (1.6-4.0cm) IVSd1.3 (0.7-1.1cm)Aortic Root(2D)3.3 (2.0-3.7cm) LVDd3.9 (3.9-5.9cm)LVOT Diameter2.0 (1.8-2.4cm) PWd1.3 (0.7-1.1cm)LVDs1.7 (2.5-4.0cm) FS (%) 56.2 %SV59.1 ml LVEF(%)87.1 (>50%) Aortic Valve AoV Peak Arun.145.3cm/sAoV VTI35.6cm AO Peak GR.8.4mmHgLVOT Peak Arun.135.2cm/s AO Mean GR.5mmHgAVA (VMAX)2.92cm2 Mitral Valve MV E Vhtppnmj835.2cm/sMV DECEL EZXU130oq MV A Mgbaplyp680.1cm/sE/A Ratio1.0 Pulmonary Valve PV Peak Wfndasiv520.1cm/s Tricuspid Valve TR P. Bsdncqsq995sg/sTR Peak Gr.24mmHg LEFT VENTRICLE The left ventricle is normal size. There is mild concentric left ventricular hypertrophy. The left ve ntricular systolic function is normal and the ejection fraction is within normal range. Estimated eje ction fraction 65%. There is normal LV segmental wall motion. Transmitral Doppler flow pattern is Gra de I-abnormal relaxation pattern. RIGHT VENTRICLE The right ventricle is normal size. There is normal right ventricular wall thickness. The right ventr icular systolic function is normal. ATRIA The left atrium size is normal. The right atrium size is normal. The interatrial septum is intact wit h no evidence for an atrial septal defect or patent foramen ovale as noted on 2-D or Doppler imaging. AORTIC VALVE The aortic valve is normal in structure and function. Doppler and Color Flow revealed no significant aortic regurgitation. There is no significant aortic valvular stenosis. MITRAL VALVE The mitral valve is normal in structure and function. There is no evidence of mitral valve prolapse. There is no mitral valve stenosis. Doppler and Color-flow revealed mild mitral regurgitation. TRICUSPID VALVE The tricuspid valve is normal in structure and function. Doppler and Color Flow revealed mild tricusp id regurgitation. Estimated PAP 28 mmHg. There is no tricuspid valve stenosis. PULMONIC VALVE Doppler and Color Flow revealed mild pulmonic valvular regurgitation. There is no pulmonic valvular s tenosis. GREAT VESSELS The aortic root is normal in size. The ascending aorta is normal in size. The IVC is normal in size a nd collapses >50% with inspiration. PERICARDIAL EFFUSION There is no evidence of significant pericardial effusion. Critical Notification Critical Value: No <Conclusion> The left ventricular systolic function is normal and the ejection fraction is within normal range. E stimated ejection fraction 65%. There is normal LV segmental wall motion. Doppler and Color Flow revealed mild pulmonic valvular regurgitation. Doppler and Color Flow revealed mild tricuspid regurgitation. Estimated PAP 28 mmHg. Signed by : Neil Ascencio, Electronically Approved : 06/22/2021 22:19:27
== END ==
LOC: ECHO 09:40
PROVIDERS: ATTEND Internal Medicine Cardiovascular Disease
DX: I08.8 Other rheumatic multiple valve diseases (principal); I25.10 Atherosclerotic heart disease of native coronary artery without angina pectoris
CPT/HCPCS: 93306

== ENCOUNTER → 2021-06-30 | Outpatient (CLI) | payer OTHER ==
[2019-04-23 11:00] VITALS: BP 155/56
--- NOTE | 2021-06-30 17:15 | RAD ---
XR CHEST 2V History: Reason: COPD without exacerbation. / Spl. Instructions: / History: Comparison: April 18, 2019 Findings: Hyperinflation. Right upper lobe patchy opacities. No pleural effusion. No pneumothorax. Normal heart size. Prior median sternotomy. Rightward curvature of the thoracic spine, unchanged. Impression: 1. Mild patchy right upper lobe opacities, may represent atelectasis or developing consolidation inc luding pneumonia. Recommend follow-up to ensure resolution. Electronically signed by: Dustin Segal DO (06/30/2021 5:13 PM) [id number]
== END ==
LOC: RAD 14:29
PROVIDERS: ATTEND Family Medicine
DX: J44.9 Chronic obstructive pulmonary disease, unspecified (principal); Z98.890 Other specified postprocedural states
CPT/HCPCS: 71046

== ENCOUNTER 2022-02-08 14:20 | Inpatient (IN) | payer OTHER ==
[~2022-02-08] VITALS: Ht 170.2 cm; Wt 75.0 kg
[~2022-02-08 14:20] MED LIST changes: -LISI1TAB20 PO; +LISI1TAB39 PO
--- NOTE | 2022-02-08 14:28 | PHYS DOC ---
Past Medical History Past Medical History: Arthritis, CAD, Diabetes-Type II, High Cholesterol, Hypertension, Hypothyroid Past Surgical History: Appendectomy, Cholecystectomy, Coronary Bypass Surgery Smoking Status: Former Smoker Alcohol Use: None Drug Use: None General Adult EDM: Chief Complaint: SHORTNESS OF BREATH HPI: HPI: Patient is a 81 year old female presents with respiratory distress and brought in by medics. Patient reported progressive shortness of breath that suddenly became worse today. Patient was brought in a CPAP machine. Patient was hyperte nsive with an SBP of 250. Patient states that she has been noncompliant with her blood pressure medication as she had ran out of her medications as well she has not been compliant with her COPD meds as it they gave her palpitations. Patient denies chest pain. Patient was given nitro in the field with minimal relief. Review of Systems: Review of Systems: Constitutional: Denies fever or chills. [] Eyes: Denies change in visual acuity. [] HENT: Denies nasal congestion or sore throat. [] Respiratory: Shortness of breath Cardiovascular: Palpitations denies chest pain or edema. [] GI: Denies abdominal pain, nausea, vomiting, bloody stools or diarrhea. [] : Denies dysuria. [] Musculoskeletal: Denies back pain or joint pain. [] Integument: Denies rash. [] Neurologic: Denies headache, focal weakness or sensory changes. [] Endocrine: Denies polyuria or polydipsia. [] Lymphatic: Denies swollen glands. [] Psychiatric: Denies depression or anxiety. [] Heart Score: C/O Chest Pain: Yes HEART Score for Chest Pain: HEART Score for Chest Pain Response (Comments) Value History Moderately Suspicious [address] Depression 2 Age > 65 2 Risk Factors >3 Risk Factors or Hx CAD 2 Troponin < Normal Limit 0 Total 7 Risk Factors: Risk Factors: DM, Current or recent (<one month) smoker, HTN, HLP, family history of CAD, obesity. Risk Scores: Score 0 - 3: 2.5% MACE over next 6 weeks - Discharge Home Score 4 - 6: 20.3% MACE over next 6 weeks - Admit for Clinical Observation Score 7 - 10: 72.7% MACE over next 6 weeks - Early Invasive Strategies Allergies: Allergies: Allergies Coded Allergies Type Severity Reaction Last Updated Verified No Known Drug Allergies 02/08/22 No Physical Exam: PE: Constitutional: Well developed, well nourished, no acute distress, non-toxic appearance. [] HENT: Normocephalic, atraumatic, bilateral external ears normal, oropharynx moist, no oral exudates, nose normal. [] Eyes: PERRLA, EOMI, conjunctiva normal, no discharge. [] Neck: Normal range of motion, no tenderness, supple, no stridor. [] Cardiovascular:Heart rate regular rhythm, no murmur [] Lungs & Thorax: Bilateral basilar wheezing. Decreased breath sounds moderate respiratory distress Abdomen: Bowel sounds normal, soft, no tenderness, no masses, no pulsatile masses. [] Skin: Warm, dry, no erythema, no rash. [] Back: No tenderness, no CVA tenderness. [] Extremities: No tenderness, no cyanosis, no clubbing, ROM intact, no edema. [] Neurologic: Alert and oriented X 3, normal motor function, normal sensory function, no focal deficits noted. [] Psychologic:Anxious, judgement normal, mood normal. [] EKG: EKG: Normal sinus rhythm heart rate of 94 with a leftward axis and left heart strain. T wave inversions in the inferior leads. [] Second repeat EKG at 1429 shows global LV strain and global ischemia secondary to hypertensive crisis. Patient has a heart rate of 94 with a QTC of 456. Radiology/Procedures: Radiology/Procedures: []MPRESSION: 1. Mild cardiomegaly. 2. Left upper lobe scarring or atelectasis. 3. Mild chronic interstitial lung disease. 4. No new confluent pneumonia. Course & Med Decision Making: Course & Med Decision Making Pertinent Labs and Imaging studies reviewed. (See chart for details) [] I discussed the case with the mortgage loan closer Dr Carranza. Patient second EKG has ST changes but likely global secondary to hypertension. Patient's blood pressure very slowly lowered with labetalol 10 mg and reevaluated. Patient only brought in for observation. Discussed with hospitalist. Patient appears much improved after reevaluation Critical care time 33-minute Dragon Disclaimer: Dragon Disclaimer: This electronic medical record was generated, in whole or in part, using a voice recognition dictation system. Departure Departure Referrals: ANNELIESE ARAGON MD (PCP) HALLE CREWS DO Feb 08, 2022 14:28
[2022-02-08 14:43] LABS: BASO # 0.1 x10^3/uL (0.0-0.2); BASO % 1 % (0-3); EOS # 0.2 x10^3/uL (0.0-0.7); EOS % 3 % (0-3); HEMATOCRIT 42.9 % (36.0-47.0); HEMOGLOBIN 13.9 g/dL (12.0-15.5); LYMPH # 2.1 x10^3/uL (1.0-4.8); LYMPH % 25 % (24-48); MEAN CORPUSCULAR HEMOGLOBIN 29 pg (25-35); MEAN CORPUSCULAR HGB CONC 33 g/dL (31-37); MEAN CORPUSCULAR VOLUME 90 fL (79-100); MONO # 0.7 x10^3/uL (0.0-1.1); MONO % 9 % (0-9); NEUT # 5.2 x10^3/uL (1.8-7.7); NEUT % 62 % (31-73); PLATELET COUNT 257 x10^3/uL (140-400); RED BLOOD COUNT 4.77 x10^6/uL (3.50-5.40); RED CELL DISTRIBUTION WIDTH 14.4 % (11.5-14.5); WHITE BLOOD COUNT 8.3 x10^3/uL (4.0-11.0)
--- NOTE | 2022-02-08 14:55 | RAD ---
AP chest. HISTORY: Short of breath AP view of the chest was compared with a prior study from June 2021. Heart is mildly enlarged. T here is thoracolumbar scoliosis. Patient previous coronary bypass. There is linear scarring in the le ft upper lobe similar to the old study. There is no pleural effusion. There are interstitial changes in the lungs similar to the old study suggesting mild chronic interstitial lung disease. A new conflu ent pneumonia is not identified. IMPRESSION: 1. Mild cardiomegaly. 2. Left upper lobe scarring or atelectasis. 3. Mild chronic interstitial lung disease. 4. No new confluent pneumonia. Electronically signed by: Ryan Wild MD (02/08/2022 2:52 PM) [facility]
[2022-02-08] MEDS ORDERED: ALBUTEROL SULFATE 2.5 MG/3 ML NEBU. CONT NEB ONE (15:00)
[2022-02-08] MEDS ORDERED: methylPREDNISolone SOD SUCC PF 125 MG/2 ML VIAL. IV ONE (15:00)
[2022-02-08] MEDS ORDERED: ALBUTEROL SULFATE 2.5 MG/3 ML NEBU. NEB ONE (15:00)
[2022-02-08 15:05] LABS: CALCIUM 10.4 mg/dL (8.5-10.1); CREATININE 1.4 mg/dL (0.6-1.0); POTASSIUM 4.5 mmol/L (3.5-5.1)
[2022-02-08 15:11] LABS: ALBUMIN 3.7 g/dL (3.4-5.0); ALBUMIN/GLOBULIN RATIO 0.9 (1.0-1.7); TOTAL BILIRUBIN 0.5 mg/dL (0.2-1.0); TOTAL PROTEIN 7.9 g/dL (6.4-8.2)
[2022-02-08 15:12] LABS: BASE EXCESS COOX 1 mmol/L (-3-3); HCO3 COOX 24 mmol/L (21-28); METHEMOGLOBIN 0.4 % (0.0-1.9); OXYHEMOGLOBIN 98.2 %; PCO2 COOX 36 mmHg (35-46); PO2 COOX 185 mmHg (65-108); SAT O2 COOX 99 % (92-99)
[2022-02-08] MEDS ORDERED: LABETALOL 20 MG/4 ML DISP.SYRIN. IVP ONE (17:15)
[2022-02-08] MEDS ORDERED: FUROSEMIDE 20 MG/2 ML VIAL. IVP ONE (17:45)
[2022-02-08 20:30] VITALS: BP 206/104
[2022-02-08 20:39] LABS: INFLUENZA A PATIENT NEGATIVE (NEGATIVE); INFLUENZA B PATIENT NEGATIVE (NEGATIVE)
[2022-02-08] MEDS ORDERED: PROCHLORPERAZINE 10 MG/2 ML VIAL. IV PRN (20:45)
[2022-02-08] MEDS ORDERED: ONDANSETRON PF 4 MG/2 ML VIAL. IVP PRN (20:45)
[2022-02-08] MEDS ORDERED: DEXTROSE 50% 25 GM / 50ML DISP.SYRIN. IV PRN (20:45)
[2022-02-08] MEDS ORDERED: DOCUSATE SODIUM 100 MG CAPSULE. PO PRN (20:45)
[2022-02-08] MEDS ORDERED: diphenhydrAMINE 50 MG/ML VIAL IVP PRN (20:45)
[2022-02-08] MEDS ORDERED: SENNOSIDES 8.6 MG TABLET PO PRN (20:45)
[2022-02-08] MEDS ORDERED: LORazepam 0.5 MG TABLET PO PRN (20:45)
[2022-02-08] MEDS ORDERED: ZOLPIDEM 5 MG TABLET. PO PRN (20:45)
[2022-02-08] MEDS ORDERED: diphenhydrAMINE HCL 25 MG CAPSULE PO PRN (20:45)
[2022-02-08] MEDS ORDERED: hydrALAZINE 20 MG/ML VIAL. IVP PRN (20:45)
[2022-02-08 20:48] LABS: BACTERIA,URINE 0 /HPF (0-FEW); RBC,URINE OCC /HPF (0-2); WBC,URINE OCC /HPF (0-4)
[2022-02-08] MEDS: IV NORMAL SALINE 1000ML BAG 1,000 ML IV SCH (21:00)
[2022-02-08 21:46] VITALS: BP 177/65
[2022-02-08 22:20] VITALS: BP 184/81
[2022-02-08] MEDS ORDERED: LISI20TA18 PO (23:25)
--- NOTE | 2022-02-08 23:29 | NUR ---
Patient arrived to unit at approx 2130 accompanied by railway signal technician. Patient reports no pain at this time. Patient is resting comfortably on 2 L NC. Normally does not wear oxygen at home. Patient states that she hasn't been taking her medications because shh has trouble getting them, no transportation. Has been out of meds for at least 3 weeks now. Patient lives home alone. Will continue to monitor. Bed in low locked position. call light in reach. bed alarm set Addendum: 02/09/22 at 0041 by MARTA ESCUDERO RN RN Pt lives home alone and has [facility].
[2022-02-09] VITALS (7 sets, daily range): BP systolic 151–190; BP diastolic 62–82
[2022-02-09] MEDS: methylPREDNISolone SOD SUCC PF 40 MG/ML VIAL. IV SCH ×4 (00:15→16:49)
--- NOTE | 2022-02-09 00:41 | NUR ---
Pt states that she does not use her Albuterol because it "makes me all shaky". Explained to patient that albuterol does make you feel that way and its normal. Pt stated that she will not take it because of that, and that the doctor will need to prescribe her something else.
[2022-02-09 06:00] LABS: BASO % 0 % (0-3); EOS % 0 % (0-3); HEMATOCRIT 36.7 % (36.0-47.0); HEMOGLOBIN 12.1 g/dL (12.0-15.5); LYMPH # 0.4 x10^3/uL (1.0-4.8); LYMPH % 7 % (24-48); MEAN CORPUSCULAR HEMOGLOBIN 30 pg (25-35); MEAN CORPUSCULAR HGB CONC 33 g/dL (31-37); MEAN CORPUSCULAR VOLUME 90 fL (79-100); MONO # 0.1 x10^3/uL (0.0-1.1); MONO % 1 % (0-9); NEUT % 92 % (31-73); PLATELET COUNT 210 x10^3/uL (140-400); RED BLOOD COUNT 4.09 x10^6/uL (3.50-5.40); RED CELL DISTRIBUTION WIDTH 14.5 % (11.5-14.5); WHITE BLOOD COUNT 6.5 x10^3/uL (4.0-11.0)
[2022-02-09 06:28] LABS: ALBUMIN 3.1 g/dL (3.4-5.0); ALBUMIN/GLOBULIN RATIO 0.8 (1.0-1.7); CALCIUM 9.4 mg/dL (8.5-10.1); CREATININE 1.5 mg/dL (0.6-1.0); GFR 33.2; MAGNESIUM 1.9 mg/dL (1.8-2.4); PHOSPHORUS 4.1 mg/dL (2.6-4.7); TOTAL BILIRUBIN 0.3 mg/dL (0.2-1.0); TOTAL PROTEIN 7.2 g/dL (6.4-8.2)
[2022-02-09] MEDS: IV NORMAL SALINE 1000ML BAG 1,000 ML IV SCH (07:00)
[2022-02-09] MEDS: PANTOPRAZOLE 40 MG TABLET.DR. PO SCH (07:30)
--- NOTE | 2022-02-09 07:49 | EKG ---
[facility] [address] [place] [address] Test Date: 2022-02-08 Test Time: 16:29:49 Pat Name: DEBBIE ZAVALA Department: Room: [facility] Gender: F [employer]: : 1940 Requested By: HALLE CREWS Order Number: [id number] Reading MD: Abdiaziz Pacheco Measurements Intervals [place] Rate: 94 P: -28 VA: 180 QRS: -24 QRSD: 94 T: 152 QT: 360 QTc: 456 Interpretive Statements SINUS RHYTHM LEFTWARD AXIS LVH WITH REPOLARIZATION ABNORMALITY QRS(T) CONTOUR ABNORMALITY CONSIDER ANTEROSEPTAL MYOCARDIAL DAMAGE ABNORMAL ECG Electronically Signed On 02-10-2022 13:24:32 CDT by Abdiaziz Pacheco
--- NOTE | 2022-02-09 07:58 | PDOC1 ---
History and Physical Date of Service: DOS: DATE: 02/09/22 TIME: 07:49 Chief Complaint: Chief Complain: Shortness of breath History of Present Illness: HPI: 81 year old female presents with respiratory distress and brought in by medics. Patient reported progressive shortness of breath that suddenly became worse today. Patient was brought in a CPAP machine. Patient was hypertensive with an SBP of 250. Patient states that she has been noncompliant with her blood pressure medication as she had ran out of her medications as well she has not been compliant with her COPD meds as it they gave her palpitations. Patient denies chest pain. Patient was given nitro in the field with minimal relief. Of note patient lives by herself and she gets around with a walker and sometimes a cane. She does have a [id number] who lives nearby her but she does not provide any help. 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 Past Medical/Surgical History: PMH/PSH: Past Medical History: Arthritis, CAD, Diabetes-Type II, High Cholesterol, Hypertension, Hypothyroid Past Surgical History: Appendectomy, Cholecystectomy, Coronary Bypass Surgery Allergies: Allergies: Coded Allergies: No Known Drug Allergies (Unverified , 02/08/22) Family History: Family History: Reviewed with no relative findings in the chart Social History: Social History: Smoking Status: Former Smoker Alcohol Use: None Drug Use: None Current Medications: Current Medications Current Medications Albuterol Sulfate (Ventolin Neb Soln) 2.5 mg 1X ONCE NEB ; Start 02/08/22 at 15:00; Stop 02/08/22 at 15:01; Status DC Albuterol Sulfate (Ventolin Neb Soln) 10 mg 1X ONCE CONT NEB Last administered on 02/08/22at 15:24; Start 02/08/22 at 15:00; Stop 02/08/22 at 15:01; Status DC Methylprednisolone Sodium Succinate (SOLU-Medrol 125MG VIAL) 125 mg 1X ONCE IV Last administered on 02/08/22at 15:10; Start 02/08/22 at 15:00; Stop 02/08/22 at 15:01; Status DC Lorazepam (Ativan Inj) 0.5 mg 1X ONCE IVP Last administered on 02/08/22at 15:59; Start 02/08/22 at 15:45; Stop 02/08/22 at 15:46; Status DC Labetalol HCl (Normodyne Iv Push) 10 mg 1X ONCE IVP Last administered on 02/08/22at 17:30; Start 02/08/22 at 17:15; Stop 02/08/22 at 17:16; Status DC Furosemide (Lasix) 20 mg 1X ONCE IVP Last administered on 02/08/22at 18:51; Start 02/08/22 at 17:45; Stop 02/08/22 at 17:46; Status DC Sennosides (Senna) 17.2 mg PRN BID PRN PO CONSTIPATION; Start 02/08/22 at 20:45 Docusate Sodium (Colace) 100 mg PRN DAILY PRN PO HARD STOOLS; Start 02/08/22 at 20:45 Ondansetron HCl (Zofran) 4 mg PRN Q6HRS PRN IVP NAUSEA/VOMITING, 1st CHOICE; Start 02/08/22 at 20:45 Methylprednisolone Sodium Succinate (SOLU-Medrol 40MG VIAL) 40 mg Q6HRS IV Last administered on 02/09/22at 05:07; Start 02/09/22 at 00:00 Dextrose (Dextrose 50%-Water Syringe) 12.5 gm PRN Q15MIN PRN IV SEE COMMENTS; Start 02/08/22 at 20:45 Sodium Chloride 1,000 ml @ 100 mls/hr Q10H IV Last administered on 02/09/22at 07:00; Start 02/08/22 at 21:00 Acetaminophen (Tylenol) 650 mg PRN Q4HRS PRN PO TEMP OVER 100.4F OR MILD PAIN; Start 02/08/22 at 20:45 Lorazepam (Ativan) 0.5 mg PRN Q6HRS PRN PO ANXIETY / AGITATION; Start 02/08/22 at 20:45 Lorazepam (Ativan Inj) 0.25 mg PRN Q4HRS PRN IV ANXIETY / AGITATION; Start 02/08/22 at 20:45 Enoxaparin Sodium (Lovenox 30mg Syringe) 30 mg DAILY SQ ; Start 02/09/22 at 09:00 Pantoprazole Sodium (Protonix) 40 mg DAILYAC PO ; Start 02/09/22 at 07:30 Prochlorperazine Edisylate (Compazine) 10 mg PRN Q6HRS PRN IV NAUSEA/VOMITING, 2nd CHOICE; Start 02/08/22 at 20:45 Diphenhydramine HCl (Benadryl) 25 mg PRN Q6HRS PRN IVP ITCHING; Start 02/08/22 at 20:45 Diphenhydramine HCl (Benadryl) 25 mg PRN Q6HRS PRN PO ITCHING; Start 02/08/22 at 20:45 Diphenhydramine HCl (Benadryl) 25 mg PRN QHS PRN PO INSOMNIA, 1st CHOICE; Start 02/08/22 at 20:45 Zolpidem Tartrate (Ambien) 2.5 mg PRN QHS PRN PO INSOMNIA, 2nd CHOICE; Start 02/08/22 at 20:45 Hydralazine HCl (Apresoline Inj) 10 mg PRN Q4HRS PRN IVP HYPERTENSION, 2nd CHOICE; Start 02/08/22 at 20:45 Labetalol HCl (Normodyne Iv Push) 20 mg PRN Q2HR PRN IVP HYPERTENSION, 1st CHOICE; Start 02/08/22 at 20:45 Active Scripts Active Atorvastatin Calcium 10 Mg Tablet 10 Mg PO QHS 30 Days Reported Lisinopril 20 Mg Tablet 1 Tab PO DAILY Metformin Hcl 1,000 Mg Tablet 1,000 Mg PO [id number] Glimepiride 4 Mg Tablet 4 Mg PO DAILY ROS: Review of Systems Review of System REVIEW OF SYSTEMS: GENERAL: Denies weakness SKIN: No bruising, hair changes or rashes. EYES: No blurred, double or loss of vision. NOSE AND THROAT: No history of nosebleeds, hoarseness or sore throat. HEART: No history of palpitations, chest pain or shortness of breath on exertion. LUNGS: Positive for shortness of breath GASTROINTESTINAL: Denies changes in appetite, nausea, vomiting, diarrhea or constipation. GENITOURINARY: No history of frequency, urgency, hesitancy or nocturia. NEUROLOGIC: Denies history of numbness, tingling, or tremor. PSYCHIATRIC: No history of panic, anxiety or depression. ENDOCRINE: No history of heat or cold intolerance, polyuria or polydipsia. EXTREMITIES: Denies joint pain, pain on walking or stiffness. Physical Exam: Vital Signs: Vital Signs Date Time Temp Pulse Resp B/P (MAP) Pulse Ox O2 Delivery O2 Flow Rate FiO2 02/09/22 02:11 97.7 83 18 185/82 (116) 98 Nasal Cannula 4.0 97.7 Physcial Exam: General: Well developed, well nourished, no acute distress, well appearing HEENT: Pupils equally round and reactive to light, EOMI, no discharge, normal conjunctiva Neck: Supple, no nuchal rigidity, no JVD, trachea midline, no tenderness Cardiac: RRR, no murmurs, no gallops, no rubs Chest/Lungs: CTAB, no wheeze, no rhonchi, no crackles Abdomen: soft, non-distended, no guarding, no peritoneal signs, non-tender Back: No tenderness Extremities: no edema, pulses intact, non-tender,capillary refill <3 sec bilateral upper and lower extremities, Neuro: Alert and oriented x 4, no focal deficits, normal speech Labs: Labs: Laboratory Tests Test 02/08/22 14:27 02/08/22 15:10 02/08/22 15:14 02/08/22 17:28 White Blood Count 8.3 x10^3/uL (4.0-11.0) Red Blood Count 4.77 x10^6/uL (3.50-5.40) Hemoglobin 13.9 g/dL (12.0-15.5) Hematocrit 42.9 % (36.0-47.0) Mean Corpuscular Volume 90 fL (79-100) Mean Corpuscular Hemoglobin 29 pg (25-35) Mean Corpuscular Hemoglobin Concent 33 g/dL (31-37) Red Cell Distribution Width 14.4 % (11.5-14.5) Platelet Count 257 x10^3/uL (140-400) Neutrophils (%) (Auto) 62 % (31-73) Lymphocytes (%) (Auto) 25 % (24-48) Monocytes (%) (Auto) 9 % (0-9) Eosinophils (%) (Auto) 3 % (0-3) Basophils (%) (Auto) 1 % (0-3) Neutrophils # (Auto) 5.2 x10^3/uL (1.8-7.7) Lymphocytes # (Auto) 2.1 x10^3/uL (1.0-4.8) Monocytes # (Auto) 0.7 x10^3/uL (0.0-1.1) Eosinophils # (Auto) 0.2 x10^3/uL (0.0-0.7) Basophils # (Auto) 0.1 x10^3/uL (0.0-0.2) Sodium Level 141 mmol/L (136-145) Potassium Level 4.5 mmol/L (3.5-5.1) Chloride Level 102 mmol/L (98-107) Carbon Dioxide Level 29 mmol/L (21-32) Anion Gap 10 (6-14) Blood Urea Nitrogen 30 mg/dL (7-20) Creatinine 1.4 mg/dL (0.6-1.0) Estimated GFR (Cockcroft-Gault) 36.0 BUN/Creatinine Ratio 21 (6-20) Glucose Level 128 mg/dL (70-99) Calcium Level 10.4 mg/dL (8.5-10.1) Total Bilirubin 0.5 mg/dL (0.2-1.0) Aspartate Amino Transf (AST/SGOT) 20 U/L (15-37) Alanine Aminotransferase (ALT/SGPT) 16 U/L (14-59) Alkaline Phosphatase 103 U/L (46-116) Troponin I High Sensitivity 14 ng/L (4-50) TU-Ekl-H-Type Natriuretic Peptide 1295 pg/mL (0-449) Total Protein 7.9 g/dL (6.4-8.2) Albumin 3.7 g/dL (3.4-5.0) Albumin/Globulin Ratio 0.9 (1.0-1.7) O2 Saturation 99 % (92-99) Arterial Blood pH 7.45 (7.35-7.45) Arterial Blood pCO2 at Patient Temp 36 mmHg (35-46) Arterial Blood pO2 at Patient Temp 185 mmHg (65-108) Arterial Blood HCO3 24 mmol/L (21-28) Arterial Blood Base Excess 1 mmol/L (-3-3) Oxyhemoglobin 98.2 % Methemoglobin 0.4 % (0.0-1.9) Carbon Monoxide, Quantitative 0.1 % (0.0-1.9) FiO2 50 Influenza Type A Antigen Negative (NEGATIVE) Influenza Type B Antigen Negative (NEGATIVE) SARS-CoV-2 Antigen (Rapid) Negative (NEGATIVE) D-Dimer (Jeanette) 2.25 ug/mlFEU (0.00-0.50) Test 02/08/22 20:30 02/09/22 03:50 Urine Collection Type Unknown Urine Color (Auto) Light yellow Urine Turbidity Clear Urine pH (Auto) 5.0 (<5.0-8.0) Urine Specific [place] 1.013 (1.000-1.030) Urine Protein (Auto) Negative mg/dL (Negative) Urine Glucose (Auto)(UA) Negative mg/dL (Negative) Urine Ketones (Auto) Negative mg/dL (Negative) Urine Blood (Auto) Negative (Negative) Urine Nitrite (Auto) Negative (Negative) Urine Bilirubin (Auto) Negative (Negative) Urine Urobilinogen (Auto) Normal mg/dL (Normal) Urine Leukocyte Esterase (Auto) Negative (Negative) Urine RBC Occ /HPF (0-2) Urine WBC Occ /HPF (0-4) Urine Squamous Epithelial Cells Mod /LPF Urine Bacteria 0 /HPF (0-FEW) White Blood Count 6.5 x10^3/uL (4.0-11.0) Red Blood Count 4.09 x10^6/uL (3.50-5.40) Hemoglobin 12.1 g/dL (12.0-15.5) Hematocrit 36.7 % (36.0-47.0) Mean Corpuscular Volume 90 fL (79-100) Mean Corpuscular Hemoglobin 30 pg (25-35) Mean Corpuscular Hemoglobin Concent 33 g/dL (31-37) Red Cell Distribution Width 14.5 % (11.5-14.5) Platelet Count 210 x10^3/uL (140-400) Neutrophils (%) (Auto) 92 % (31-73) Lymphocytes (%) (Auto) 7 % (24-48) Monocytes (%) (Auto) 1 % (0-9) Eosinophils (%) (Auto) 0 % (0-3) Basophils (%) (Auto) 0 % (0-3) Neutrophils # (Auto) 6.0 x10^3/uL (1.8-7.7) Lymphocytes # (Auto) 0.4 x10^3/uL (1.0-4.8) Monocytes # (Auto) 0.1 x10^3/uL (0.0-1.1) Eosinophils # (Auto) 0.0 x10^3/uL (0.0-0.7) Basophils # (Auto) 0.0 x10^3/uL (0.0-0.2) Sodium Level 138 mmol/L (136-145) Potassium Level 4.0 mmol/L (3.5-5.1) Chloride Level 100 mmol/L (98-107) Carbon Dioxide Level 27 mmol/L (21-32) Anion Gap 11 (6-14) Blood Urea Nitrogen 37 mg/dL (7-20) Creatinine 1.5 mg/dL (0.6-1.0) Estimated GFR (Cockcroft-Gault) 33.2 BUN/Creatinine Ratio 25 (6-20) Glucose Level 388 mg/dL (70-99) Calcium Level 9.4 mg/dL (8.5-10.1) Phosphorus Level 4.1 mg/dL (2.6-4.7) Magnesium Level 1.9 mg/dL (1.8-2.4) Total Bilirubin 0.3 mg/dL (0.2-1.0) Aspartate Amino Transf (AST/SGOT) 11 U/L (15-37) Alanine Aminotransferase (ALT/SGPT) 16 U/L (14-59) Alkaline Phosphatase 83 U/L (46-116) Total Protein 7.2 g/dL (6.4-8.2) Albumin 3.1 g/dL (3.4-5.0) Albumin/Globulin Ratio 0.8 (1.0-1.7) Laboratory Tests Test 02/08/22 14:27 02/08/22 15:10 02/08/22 15:14 02/08/22 17:28 White Blood Count 8.3 x10^3/uL (4.0-11.0) Red Blood Count 4.77 x10^6/uL (3.50-5.40) Hemoglobin 13.9 g/dL (12.0-15.5) Hematocrit 42.9 % (36.0-47.0) Mean Corpuscular Volume 90 fL (79-100) Mean Corpuscular Hemoglobin 29 pg (25-35) Mean Corpuscular Hemoglobin Concent 33 g/dL (31-37) Red Cell Distribution Width 14.4 % (11.5-14.5) Platelet Count 257 x10^3/uL (140-400) Neutrophils (%) (Auto) 62 % (31-73) Lymphocytes (%) (Auto) 25 % (24-48) Monocytes (%) (Auto) 9 % (0-9) Eosinophils (%) (Auto) 3 % (0-3) Basophils (%) (Auto) 1 % (0-3) Neutrophils # (Auto) 5.2 x10^3/uL (1.8-7.7) Lymphocytes # (Auto) 2.1 x10^3/uL (1.0-4.8) Monocytes # (Auto) 0.7 x10^3/uL (0.0-1.1) Eosinophils # (Auto) 0.2 x10^3/uL (0.0-0.7) Basophils # (Auto) 0.1 x10^3/uL (0.0-0.2) Sodium Level 141 mmol/L (136-145) Potassium Level 4.5 mmol/L (3.5-5.1) Chloride Level 102 mmol/L (98-107) Carbon Dioxide Level 29 mmol/L (21-32) Anion Gap 10 (6-14) Blood Urea Nitrogen 30 mg/dL (7-20) Creatinine 1.4 mg/dL (0.6-1.0) Estimated GFR (Cockcroft-Gault) 36.0 BUN/Creatinine Ratio 21 (6-20) Glucose Level 128 mg/dL (70-99) Calcium Level 10.4 mg/dL (8.5-10.1) Total Bilirubin 0.5 mg/dL (0.2-1.0) Aspartate Amino Transf (AST/SGOT) 20 U/L (15-37) Alanine Aminotransferase (ALT/SGPT) 16 U/L (14-59) Alkaline Phosphatase 103 U/L (46-116) Troponin I High Sensitivity 14 ng/L (4-50) ER-Kti-L-Type Natriuretic Peptide 1295 pg/mL (0-449) Total Protein 7.9 g/dL (6.4-8.2) Albumin 3.7 g/dL (3.4-5.0) Albumin/Globulin Ratio 0.9 (1.0-1.7) O2 Saturation 99 % (92-99) Arterial Blood pH 7.45 (7.35-7.45) Arterial Blood pCO2 at Patient Temp 36 mmHg (35-46) Arterial Blood pO2 at Patient Temp 185 mmHg (65-108) Arterial Blood HCO3 24 mmol/L (21-28) Arterial Blood Base Excess 1 mmol/L (-3-3) Oxyhemoglobin 98.2 % Methemoglobin 0.4 % (0.0-1.9) Carbon Monoxide, Quantitative 0.1 % (0.0-1.9) FiO2 50 Influenza Type A Antigen Negative (NEGATIVE) Influenza Type B Antigen Negative (NEGATIVE) SARS-CoV-2 Antigen (Rapid) Negative (NEGATIVE) D-Dimer (Jeanette) 2.25 ug/mlFEU (0.00-0.50) Test 02/08/22 20:30 02/09/22 03:50 Urine Collection Type Unknown Urine Color (Auto) Light yellow Urine Turbidity Clear Urine pH (Auto) 5.0 (<5.0-8.0) Urine Specific [place] 1.013 (1.000-1.030) Urine Protein (Auto) Negative mg/dL (Negative) Urine Glucose (Auto)(UA) Negative mg/dL (Negative) Urine Ketones (Auto) Negative mg/dL (Negative) Urine Blood (Auto) Negative (Negative) Urine Nitrite (Auto) Negative (Negative) Urine Bilirubin (Auto) Negative (Negative) Urine Urobilinogen (Auto) Normal mg/dL (Normal) Urine Leukocyte Esterase (Auto) Negative (Negative) Urine RBC Occ /HPF (0-2) Urine WBC Occ /HPF (0-4) Urine Squamous Epithelial Cells Mod /LPF Urine Bacteria 0 /HPF (0-FEW) White Blood Count 6.5 x10^3/uL (4.0-11.0) Red Blood Count 4.09 x10^6/uL (3.50-5.40) Hemoglobin 12.1 g/dL (12.0-15.5) Hematocrit 36.7 % (36.0-47.0) Mean Corpuscular Volume 90 fL (79-100) Mean Corpuscular Hemoglobin 30 pg (25-35) Mean Corpuscular Hemoglobin Concent 33 g/dL (31-37) Red Cell Distribution Width 14.5 % (11.5-14.5) Platelet Count 210 x10^3/uL (140-400) Neutrophils (%) (Auto) 92 % (31-73) Lymphocytes (%) (Auto) 7 % (24-48) Monocytes (%) (Auto) 1 % (0-9) Eosinophils (%) (Auto) 0 % (0-3) Basophils (%) (Auto) 0 % (0-3) Neutrophils # (Auto) 6.0 x10^3/uL (1.8-7.7) Lymphocytes # (Auto) 0.4 x10^3/uL (1.0-4.8) Monocytes # (Auto) 0.1 x10^3/uL (0.0-1.1) Eosinophils # (Auto) 0.0 x10^3/uL (0.0-0.7) Basophils # (Auto) 0.0 x10^3/uL (0.0-0.2) Sodium Level 138 mmol/L (136-145) Potassium Level 4.0 mmol/L (3.5-5.1) Chloride Level 100 mmol/L (98-107) Carbon Dioxide Level 27 mmol/L (21-32) Anion Gap 11 (6-14) Blood Urea Nitrogen 37 mg/dL (7-20) Creatinine 1.5 mg/dL (0.6-1.0) Estimated GFR (Cockcroft-Gault) 33.2 BUN/Creatinine Ratio 25 (6-20) Glucose Level 388 mg/dL (70-99) Calcium Level 9.4 mg/dL (8.5-10.1) Phosphorus Level 4.1 mg/dL (2.6-4.7) Magnesium Level 1.9 mg/dL (1.8-2.4) Total Bilirubin 0.3 mg/dL (0.2-1.0) Aspartate Amino Transf (AST/SGOT) 11 U/L (15-37) Alanine Aminotransferase (ALT/SGPT) 16 U/L (14-59) Alkaline Phosphatase 83 U/L (46-116) Total Protein 7.2 g/dL (6.4-8.2) Albumin 3.1 g/dL (3.4-5.0) Albumin/Globulin Ratio 0.8 (1.0-1.7) Images: Images PROCEDURE: PORTABLE CHEST 1V AP chest. HISTORY: Short of breath AP view of the chest was compared with a prior study from June 2021. Heart is mildly enlarged. There is thoracolumbar scoliosis. Patient previous coronary bypass. There is linear scarring in the left upper lobe similar to the old study. There is no pleural effusion. There are interstitial changes in the lungs similar to the old study suggesting mild chronic interstitial lung disease. A new confluent pneumonia is not identified. IMPRESSION: 1. Mild cardiomegaly. 2. Left upper lobe scarring or atelectasis. 3. Mild chronic interstitial lung disease. 4. No new confluent pneumonia. Assessment/Plan Assessment/Plan Acute hypoxic respiratory failure Hypertensive urgency, patient ran out of medications Acute COPD exacerbation Chronic kidney disease History of COPD History of diabetes mellitus type 2 History of CAD History of dyslipidemia History of hypothyroidism Admit to hospitalist service for the management Cardiology consult Lovenox for DVT prophylaxis Protonix GI prophylaxis ADA diet CODE STATUS full Discussed with RN and SW Disposition inpatient management as above DPOA: Son Justifications for Admission Other Justification COPD exacerbation MARIA DEL ROSARIO CORONA MD Feb 09, 2022 07:58
[2022-02-09] MEDS ORDERED: DEXTROSE 50% 25 GM / 50ML DISP.SYRIN. IV PRN (08:00)
[2022-02-09] MEDS: INSULIN LISPRO 300 UNITS/3 ML VIAL. SQ SCH ×3 (08:00→16:56)
[2022-02-09] MEDS: ENOXAPARIN 30 MG/0.3 ML SYRINGE. SQ SCH (08:24)
--- NOTE | 2022-02-09 09:16 | PDOC ---
AAYUSH GARCIA [employer] 02/09/22 0916: CARDIO Progress Notes Date and Time Date of Service 02/09/22 Time of Evaluation 0910 Subjective Subjective: No Chest Pain, No Palpitations, No Dizziness, Other (SOA better, but persists) Vitals Vitals Vital Signs Date Time Temp Pulse Resp B/P (MAP) Pulse Ox O2 Delivery O2 Flow Rate FiO2 02/09/22 08:00 Nasal Cannula 2.0 02/09/22 07:52 99 02/09/22 07:00 98.0 61 19 169/67 (101) 98.0 Weight Weight [ ] Input and Output Intake and Output Intake and Output 02/09/22 07:00 Intake Total 1100 ml Output Total 525 ml Balance 575 ml Intake Oral 1100 ml Output Urine Total 525 ml Laboratory Labs Laboratory Tests Test 02/08/22 14:27 02/08/22 15:10 02/08/22 15:14 02/08/22 17:28 White Blood Count 8.3 x10^3/uL (4.0-11.0) Red Blood Count 4.77 x10^6/uL (3.50-5.40) Hemoglobin 13.9 g/dL (12.0-15.5) Hematocrit 42.9 % (36.0-47.0) Mean Corpuscular Volume 90 fL (79-100) Mean Corpuscular Hemoglobin 29 pg (25-35) Mean Corpuscular Hemoglobin Concent 33 g/dL (31-37) Red Cell Distribution Width 14.4 % (11.5-14.5) Platelet Count 257 x10^3/uL (140-400) Neutrophils (%) (Auto) 62 % (31-73) Lymphocytes (%) (Auto) 25 % (24-48) Monocytes (%) (Auto) 9 % (0-9) Eosinophils (%) (Auto) 3 % (0-3) Basophils (%) (Auto) 1 % (0-3) Neutrophils # (Auto) 5.2 x10^3/uL (1.8-7.7) Lymphocytes # (Auto) 2.1 x10^3/uL (1.0-4.8) Monocytes # (Auto) 0.7 x10^3/uL (0.0-1.1) Eosinophils # (Auto) 0.2 x10^3/uL (0.0-0.7) Basophils # (Auto) 0.1 x10^3/uL (0.0-0.2) Sodium Level 141 mmol/L (136-145) Potassium Level 4.5 mmol/L (3.5-5.1) Chloride Level 102 mmol/L (98-107) Carbon Dioxide Level 29 mmol/L (21-32) Anion Gap 10 (6-14) Blood Urea Nitrogen 30 mg/dL (7-20) Creatinine 1.4 mg/dL (0.6-1.0) Estimated GFR (Cockcroft-Gault) 36.0 BUN/Creatinine Ratio 21 (6-20) Glucose Level 128 mg/dL (70-99) Calcium Level 10.4 mg/dL (8.5-10.1) Total Bilirubin 0.5 mg/dL (0.2-1.0) Aspartate Amino Transf (AST/SGOT) 20 U/L (15-37) Alanine Aminotransferase (ALT/SGPT) 16 U/L (14-59) Alkaline Phosphatase 103 U/L (46-116) Troponin I High Sensitivity 14 ng/L (4-50) HG-Qrx-X-Type Natriuretic Peptide 1295 pg/mL (0-449) Total Protein 7.9 g/dL (6.4-8.2) Albumin 3.7 g/dL (3.4-5.0) Albumin/Globulin Ratio 0.9 (1.0-1.7) O2 Saturation 99 % (92-99) Arterial Blood pH 7.45 (7.35-7.45) Arterial Blood pCO2 at Patient Temp 36 mmHg (35-46) Arterial Blood pO2 at Patient Temp 185 mmHg (65-108) Arterial Blood HCO3 24 mmol/L (21-28) Arterial Blood Base Excess 1 mmol/L (-3-3) Oxyhemoglobin 98.2 % Methemoglobin 0.4 % (0.0-1.9) Carbon Monoxide, Quantitative 0.1 % (0.0-1.9) FiO2 50 Influenza Type A Antigen Negative (NEGATIVE) Influenza Type B Antigen Negative (NEGATIVE) SARS-CoV-2 Antigen (Rapid) Negative (NEGATIVE) D-Dimer (Jeanette) 2.25 ug/mlFEU (0.00-0.50) Test 02/08/22 20:30 02/09/22 03:50 02/09/22 07:54 Urine Collection Type Unknown Urine Color (Auto) Light yellow Urine Turbidity Clear Urine pH (Auto) 5.0 (<5.0-8.0) Urine Specific [place] 1.013 (1.000-1.030) Urine Protein (Auto) Negative mg/dL (Negative) Urine Glucose (Auto)(UA) Negative mg/dL (Negative) Urine Ketones (Auto) Negative mg/dL (Negative) Urine Blood (Auto) Negative (Negative) Urine Nitrite (Auto) Negative (Negative) Urine Bilirubin (Auto) Negative (Negative) Urine Urobilinogen (Auto) Normal mg/dL (Normal) Urine Leukocyte Esterase (Auto) Negative (Negative) Urine RBC Occ /HPF (0-2) Urine WBC Occ /HPF (0-4) Urine Squamous Epithelial Cells Mod /LPF Urine Bacteria 0 /HPF (0-FEW) White Blood Count 6.5 x10^3/uL (4.0-11.0) Red Blood Count 4.09 x10^6/uL (3.50-5.40) Hemoglobin 12.1 g/dL (12.0-15.5) Hematocrit 36.7 % (36.0-47.0) Mean Corpuscular Volume 90 fL (79-100) Mean Corpuscular Hemoglobin 30 pg (25-35) Mean Corpuscular Hemoglobin Concent 33 g/dL (31-37) Red Cell Distribution Width 14.5 % (11.5-14.5) Platelet Count 210 x10^3/uL (140-400) Neutrophils (%) (Auto) 92 % (31-73) Lymphocytes (%) (Auto) 7 % (24-48) Monocytes (%) (Auto) 1 % (0-9) Eosinophils (%) (Auto) 0 % (0-3) Basophils (%) (Auto) 0 % (0-3) Neutrophils # (Auto) 6.0 x10^3/uL (1.8-7.7) Lymphocytes # (Auto) 0.4 x10^3/uL (1.0-4.8) Monocytes # (Auto) 0.1 x10^3/uL (0.0-1.1) Eosinophils # (Auto) 0.0 x10^3/uL (0.0-0.7) Basophils # (Auto) 0.0 x10^3/uL (0.0-0.2) Sodium Level 138 mmol/L (136-145) Potassium Level 4.0 mmol/L (3.5-5.1) Chloride Level 100 mmol/L (98-107) Carbon Dioxide Level 27 mmol/L (21-32) Anion Gap 11 (6-14) Blood Urea Nitrogen 37 mg/dL (7-20) Creatinine 1.5 mg/dL (0.6-1.0) Estimated GFR (Cockcroft-Gault) 33.2 BUN/Creatinine Ratio 25 (6-20) Glucose Level 388 mg/dL (70-99) Calcium Level 9.4 mg/dL (8.5-10.1) Phosphorus Level 4.1 mg/dL (2.6-4.7) Magnesium Level 1.9 mg/dL (1.8-2.4) Total Bilirubin 0.3 mg/dL (0.2-1.0) Aspartate Amino Transf (AST/SGOT) 11 U/L (15-37) Alanine Aminotransferase (ALT/SGPT) 16 U/L (14-59) Alkaline Phosphatase 83 U/L (46-116) Total Protein 7.2 g/dL (6.4-8.2) Albumin 3.1 g/dL (3.4-5.0) Albumin/Globulin Ratio 0.8 (1.0-1.7) Glucose (Fingerstick) 310 mg/dL (70-99) Physical Exam HEENT: Neck Supple W Full Motion Chest: Symmetric LUNGS: Other (diminished throughout ) Heart: RRR (SR) Abdomen: Soft N/T Extremities: No Edema Neurology: alert, oriented, follow commands Assessment Assessment 1. Acute on chronic respiratory failure, AECOPD 2. Mild acute on chronic diastolic CHF; Echo 06/18 with preserved LV systolic function. s/p IV Lasix 3. Hypertensive urgency; has been out meds. remains elevated 4. CAD s/p CABG; initial trop negative. CP free. 5. Hyperlipidemia 6. Diabetes, II 7. CKD 8. Hypothyroidism 9. H/o CVA Recommendations Trend troponin BP control- resume home antiHTN therapy and titrate as warranted Hydralazine IV PRN Secondary prevention; ASA, statin therapy. Not on BB with low-end HR Pulmonary optimization Probable outpatient ischemic evaluation Supportive care Justicifation of Admission Dx: Justifications for Admission: Justification of Admission Dx: Yes Respiratory Failure: Severe Resp Distress DEEPALI ASCENCIO MD 02/10/22 0234: CARDIO Progress Notes Plan Plan Late entry for 02/09/22 The patient was seen and interviewed as well as examined at the bedside. The chart was reviewed. The case was discussed. Agree with the plan of care. AAYUSH GARCIA APRN Feb 09, 2022 09:16 DEEPALI ASCENCIO MD Feb 10, 2022 02:34
[2022-02-09] MEDS: ASPIRIN ENTERIC COATED 81 MG TABLET.DR. PO SCH (09:35)
[2022-02-09] MEDS: LISINOPRIL 20 MG TABLET PO SCH (09:35)
[2022-02-09] MEDS: LABETALOL 20 MG/4 ML DISP.SYRIN. IVP PRN (10:37)
--- NOTE | 2022-02-09 12:17 | NUR ---
SS following for discharge planning. SS reviewed pt chart and discussed with pt RN. Pt is from home and is currently requiring oxygen at four liters nasal canula. COVID19 negative. Cardiology following. Pt in [id number]. Pt reported that she does not have home oxygen. Pt reported that her nebulizer is old and was recently recalled. Pt requesting order for new nebulizer at discharge. PT/OT ordered. SS will continue to follow for discharge planning.
[2022-02-09] MEDS ORDERED: hydrALAZINE 20 MG/ML VIAL. IVP PRN (14:30)
[2022-02-09] MEDS: ATORVASTATIN CALCIUM 40 MG TABLET. PO SCH (20:26)
[2022-02-09] MEDS ORDERED: ATORVASTATIN CALCIUM 10 MG TABLET. PO SCH (21:00)
[2022-02-10] MEDS: methylPREDNISolone SOD SUCC PF 40 MG/ML VIAL. IV SCH ×4 (00:25→16:53)
[2022-02-10 03:50] VITALS: BP 142/56
[2022-02-10 04:53] LABS: BASO % 0 % (0-3); EOS % 0 % (0-3); HEMATOCRIT 35.4 % (36.0-47.0); HEMOGLOBIN 11.8 g/dL (12.0-15.5); LYMPH # 0.6 x10^3/uL (1.0-4.8); LYMPH % 6 % (24-48); MEAN CORPUSCULAR HEMOGLOBIN 30 pg (25-35); MEAN CORPUSCULAR HGB CONC 34 g/dL (31-37); MEAN CORPUSCULAR VOLUME 89 fL (79-100); MONO # 0.2 x10^3/uL (0.0-1.1); MONO % 2 % (0-9); NEUT # 9.5 x10^3/uL (1.8-7.7); NEUT % 92 % (31-73); PLATELET COUNT 187 x10^3/uL (140-400); RED BLOOD COUNT 3.97 x10^6/uL (3.50-5.40); RED CELL DISTRIBUTION WIDTH 14.1 % (11.5-14.5); WHITE BLOOD COUNT 10.3 x10^3/uL (4.0-11.0)
[2022-02-10 05:13] LABS: CALCIUM 9.7 mg/dL (8.5-10.1); CREATININE 1.4 mg/dL (0.6-1.0); POTASSIUM 4.5 mmol/L (3.5-5.1)
[2022-02-10 05:15] LABS: CHOLESTEROL/HDL RATIO 3.4
[2022-02-10 07:34] VITALS: BP 160/74
[2022-02-10] MEDS: INSULIN LISPRO 300 UNITS/3 ML VIAL. SQ SCH ×3 (07:45→16:57)
[2022-02-10] MEDS: ASPIRIN ENTERIC COATED 81 MG TABLET.DR. PO SCH (07:46)
[2022-02-10] MEDS: PANTOPRAZOLE 40 MG TABLET.DR. PO SCH (07:46)
[2022-02-10] MEDS: LISINOPRIL 20 MG TABLET PO SCH (07:47)
[2022-02-10] MEDS: ENOXAPARIN 30 MG/0.3 ML SYRINGE. SQ SCH (07:48)
[2022-02-10] MEDS: INSULIN GLARGINE SYRINGE. SQ SCH ×2 (09:00→21:59)
[2022-02-10 11:00] VITALS: BP 163/63
[2022-02-10 14:47] VITALS: BP 146/61
--- NOTE | 2022-02-10 14:58 | PDOC ---
[facility] PROGRESS NOTE Date of Service DOS: DATE: 02/10/22 TIME: 14:53 History of Present Illness History of Present Illness 81 year old female presents with respiratory distress and brought in by medics. Patient reported progressive shortness of breath that suddenly became worse today. Patient was brought in a CPAP machine. Patient was hypertensive with an SBP of 250. Patient states that she has been noncompliant with her blood pressure medication as she had ran out of her medications as well she has not been compliant with her COPD meds as it they gave her palpitations. Patient denies chest pain. Patient was given nitro in the field with minimal relief. Of note patient lives by herself and she gets around with a walker and sometimes a cane. She does have a [id number] who lives nearby her but she does not provide any help. Patient does have a package pick up at home. 02/10/2022 No acute events overnight. Patient seen examined bedside. Pressures remain labile. Amlodipine started today. We will continue to observe. PT OT evaluate and recommend SNF placement. Vitals/I&O Vitals/I&O: Vital Signs Date Time Temp Pulse Resp B/P (MAP) Pulse Ox O2 Delivery O2 Flow Rate FiO2 02/10/22 14:47 97.7 71 18 146/61 (89) 96 Nasal Cannula 2.0 97.7 I & O 02/09/22 02/09/22 02/10/22 15:00 23:00 07:00 Intake Total 0 ml Output Total 150 ml 300 ml Balance 0 ml -150 ml -300 ml Physical Exam General: Alert Heart: Regular rate Lungs: Clear, Crackles Abdomen: Normal bowel sounds Extremities: No clubbing Labs Labs: Laboratory Tests Test 02/09/22 15:40 02/09/22 16:51 02/09/22 21:25 02/10/22 03:45 Troponin I High Sensitivity 43 ng/L (4-50) Glucose (Fingerstick) 331 mg/dL (70-99) 260 mg/dL (70-99) White Blood Count 10.3 x10^3/uL (4.0-11.0) Red Blood Count 3.97 x10^6/uL (3.50-5.40) Hemoglobin 11.8 g/dL (12.0-15.5) Hematocrit 35.4 % (36.0-47.0) Mean Corpuscular Volume 89 fL (79-100) Mean Corpuscular Hemoglobin 30 pg (25-35) Mean Corpuscular Hemoglobin Concent 34 g/dL (31-37) Red Cell Distribution Width 14.1 % (11.5-14.5) Platelet Count 187 x10^3/uL (140-400) Neutrophils (%) (Auto) 92 % (31-73) Lymphocytes (%) (Auto) 6 % (24-48) Monocytes (%) (Auto) 2 % (0-9) Eosinophils (%) (Auto) 0 % (0-3) Basophils (%) (Auto) 0 % (0-3) Neutrophils # (Auto) 9.5 x10^3/uL (1.8-7.7) Lymphocytes # (Auto) 0.6 x10^3/uL (1.0-4.8) Monocytes # (Auto) 0.2 x10^3/uL (0.0-1.1) Eosinophils # (Auto) 0.0 x10^3/uL (0.0-0.7) Basophils # (Auto) 0.0 x10^3/uL (0.0-0.2) Sodium Level 136 mmol/L (136-145) Potassium Level 4.5 mmol/L (3.5-5.1) Chloride Level 102 mmol/L (98-107) Carbon Dioxide Level 28 mmol/L (21-32) Anion Gap 6 (6-14) Blood Urea Nitrogen 41 mg/dL (7-20) Creatinine 1.4 mg/dL (0.6-1.0) Estimated GFR (Cockcroft-Gault) 36.0 Glucose Level 273 mg/dL (70-99) Calcium Level 9.7 mg/dL (8.5-10.1) Magnesium Level 2.0 mg/dL (1.8-2.4) Triglycerides Level 57 mg/dL (0-150) Cholesterol Level 185 mg/dL (0-200) LDL Cholesterol, Calculated 119 mg/dL (0-100) VLDL Cholesterol, Calculated 11 mg/dL (0-40) Non-HDL Cholesterol Calculated 130 mg/dL (0-129) HDL Cholesterol 55 mg/dL (40-60) Cholesterol/HDL Ratio 3.4 Test 02/10/22 07:40 02/10/22 10:52 Glucose (Fingerstick) 273 mg/dL (70-99) 301 mg/dL (70-99) Assessment and Plan Assessmemt and Plan Problems Medical Problems: (1) Chest pain Status: Acute (2) Hypertensive urgency Status: Acute Comment Review of Relevant I have reviewed the following items anna (where applicable) has been applied. Medications: Current Medications Medications (Trade) Dose Ordered Sig/Vicky Route PRN Reason Start Time Stop Time Status Last Admin Dose Admin Atorvastatin Calcium (Lipitor) 40 mg QHS PO 02/09/22 21:00 02/09/22 20:26 Amlodipine Besylate (Norvasc) 5 mg 1X ONCE PO 02/10/22 09:00 02/10/22 09:01 DC 02/10/22 09:00 Insulin Glargine (Lantus Syringe) 10 unit BID SQ 02/10/22 09:00 02/10/22 09:00 Justifications for Admission Other Justification COPD exacerbation MARIA DEL ROSARIO CORONA MD Feb 10, 2022 14:58
--- NOTE | 2022-02-10 15:21 | NUR ---
SS following up with discharge planning. SS reviewed pt chart and discussed with pt RN. Pt is currently requiring oxygen at two liters nasal canula. COVID19 negative. Pt on IV Solu-Medrol. Cardiology following. Pt has no home oxygen. PT/OT recommended fdc unit. SS met with pt to discuss discharge planning and fdc unit. Pt declining to discuss fdc unit at this time stating that she has not pooped and will not discuss fdc unit with SS until she has pooped. Physician notified. SS will continue to follow for discharge planning.
[2022-02-10] MEDS ORDERED: MAGNESIUM CITRATE 296 ML SOLUTION. PO PRN (15:30)
[2022-02-10] MEDS: POLYETHYLENE GLYCOL 3350 17 GM PACKET. PO SCH (15:47)
[2022-02-10 20:30] VITALS: BP 199/82
--- NOTE | 2022-02-10 21:49 | PDOC ---
CARDIOLOGY PROGRESS NOTE SUBJECTIVE: No new CV issues. She continues to have dyspnea. Denies any chest pain. She has dysphagia. No palpitations. OBJECTIVE: Vital Signs/I&O: Vital Signs Date Time Temp Pulse Resp B/P (MAP) Pulse Ox O2 Delivery O2 Flow Rate FiO2 02/10/22 20:30 97.8 52 22 199/82 (121) 92 Nasal Cannula 2.0 97.8 I & O 02/09/22 02/09/22 02/10/22 15:00 23:00 07:00 Intake Total 0 ml Output Total 150 ml 300 ml Balance 0 ml -150 ml -300 ml Objective: GEN.: No apparent distress. Alert and oriented. HEENT: Head is normocephalic, atraumatic NECK: Supple. LUNGS: Clear to auscultation. HEART: RRR, S1, S2 present. Peripheral pulses intact ABDOMEN: Soft, nontender. Positive bowel sounds. EXTREMITIES: Without any cyanosis. NEUROLOGIC: Normal speech, normal tone PSYCHIATRIC: Normal affect, normal mood. SKIN: No ulcerations CURRENT MEDICATIONS: Current Medications Medications (Trade) Dose Ordered Sig/Vicky Route PRN Reason Start Time Stop Time Status Last Admin Dose Admin Amlodipine Besylate (Norvasc) 5 mg 1X ONCE PO 02/10/22 09:00 02/10/22 09:01 DC 02/10/22 09:00 Insulin Glargine (Lantus Syringe) 10 unit BID SQ 02/10/22 09:00 02/10/22 09:00 Polyethylene Glycol (miraLAX PACKET) 17 gm Q6HRS PO 02/10/22 15:47 02/10/22 15:47 DIAGNOSTIC TESTING: Labs reviewed. Echo reviewed. Labs: Laboratory Tests 02/10/22 03:45 Laboratory Tests Test 02/10/22 03:45 02/10/22 07:40 02/10/22 10:52 02/10/22 16:56 White Blood Count 10.3 x10^3/uL (4.0-11.0) Red Blood Count 3.97 x10^6/uL (3.50-5.40) Hemoglobin 11.8 g/dL (12.0-15.5) L Hematocrit 35.4 % (36.0-47.0) L Mean Corpuscular Volume 89 fL (79-100) Mean Corpuscular Hemoglobin 30 pg (25-35) Mean Corpuscular Hemoglobin Concent 34 g/dL (31-37) Red Cell Distribution Width 14.1 % (11.5-14.5) Platelet Count 187 x10^3/uL (140-400) Neutrophils (%) (Auto) 92 % (31-73) H Lymphocytes (%) (Auto) 6 % (24-48) L Monocytes (%) (Auto) 2 % (0-9) Eosinophils (%) (Auto) 0 % (0-3) Basophils (%) (Auto) 0 % (0-3) Neutrophils # (Auto) 9.5 x10^3/uL (1.8-7.7) H Lymphocytes # (Auto) 0.6 x10^3/uL (1.0-4.8) L Monocytes # (Auto) 0.2 x10^3/uL (0.0-1.1) Eosinophils # (Auto) 0.0 x10^3/uL (0.0-0.7) Basophils # (Auto) 0.0 x10^3/uL (0.0-0.2) Sodium Level 136 mmol/L (136-145) Potassium Level 4.5 mmol/L (3.5-5.1) Chloride Level 102 mmol/L (98-107) Carbon Dioxide Level 28 mmol/L (21-32) Anion Gap 6 (6-14) Blood Urea Nitrogen 41 mg/dL (7-20) H Creatinine 1.4 mg/dL (0.6-1.0) H Estimated GFR (Cockcroft-Gault) 36.0 Glucose Level 273 mg/dL (70-99) H Calcium Level 9.7 mg/dL (8.5-10.1) Cholesterol Level 185 mg/dL (0-200) LDL Cholesterol, Calculated 119 mg/dL (0-100) H VLDL Cholesterol, Calculated 11 mg/dL (0-40) Non-HDL Cholesterol Calculated 130 mg/dL (0-129) H Cholesterol/HDL Ratio 3.4 Glucose (Fingerstick) 273 mg/dL (70-99) H 301 mg/dL (70-99) H 219 mg/dL (70-99) H Test 02/10/22 20:39 Glucose (Fingerstick) 298 mg/dL (70-99) H ASSESSMENT: 1. Chronic resp failure 2. Dysphagia. 3. HTN urgency PLAN: 1. She appears fairly euvolemic. No further aggressive diuresis. Plan for BP control. 2. Pulmonary and GI evaluation given persistent dyspnea and dysphagia. Thanks Justicifation of Admission Dx: Justifications for Admission: Justification of Admission Dx: Yes Respiratory Failure: Severe Resp Distress DEEPALI ASCENCIO MD Feb 10, 2022 21:49
[2022-02-10] MEDS: ATORVASTATIN CALCIUM 40 MG TABLET. PO SCH (21:56)
[2022-02-10 23:25] VITALS: BP 149/63
[2022-02-11] MEDS: methylPREDNISolone SOD SUCC PF 40 MG/ML VIAL. IV SCH ×5 (00:20→23:58)
[2022-02-11] MEDS: ACETAMINOPHEN 325 MG TABLET. PO PRN (01:12)
[2022-02-11] MEDS: diphenhydrAMINE HCL 25 MG CAPSULE PO PRN (01:13)
[2022-02-11] MEDS: POLYETHYLENE GLYCOL 3350 17 GM PACKET. PO SCH ×6 (01:26→23:58)
[2022-02-11 03:30] VITALS: BP 188/88
[2022-02-11 04:24] LABS: BASO % 0 % (0-3); EOS % 0 % (0-3); HEMATOCRIT 40.6 % (36.0-47.0); HEMOGLOBIN 13.1 g/dL (12.0-15.5); LYMPH # 0.7 x10^3/uL (1.0-4.8); LYMPH % 5 % (24-48); MEAN CORPUSCULAR HEMOGLOBIN 29 pg (25-35); MEAN CORPUSCULAR HGB CONC 32 g/dL (31-37); MEAN CORPUSCULAR VOLUME 89 fL (79-100); MONO # 0.2 x10^3/uL (0.0-1.1); MONO % 2 % (0-9); NEUT # 11.5 x10^3/uL (1.8-7.7); NEUT % 93 % (31-73); PLATELET COUNT 247 x10^3/uL (140-400); RED BLOOD COUNT 4.56 x10^6/uL (3.50-5.40); RED CELL DISTRIBUTION WIDTH 14.4 % (11.5-14.5); WHITE BLOOD COUNT 12.4 x10^3/uL (4.0-11.0)
[2022-02-11 05:11] LABS: CALCIUM 9.9 mg/dL (8.5-10.1); CREATININE 1.3 mg/dL (0.6-1.0); GFR 39.2; MAGNESIUM 2.1 mg/dL (1.8-2.4); POTASSIUM 4.3 mmol/L (3.5-5.1)
[2022-02-11 07:00] VITALS: BP 176/79
[2022-02-11] MEDS: ASPIRIN ENTERIC COATED 81 MG TABLET.DR. PO SCH (08:07)
[2022-02-11] MEDS: LISINOPRIL 20 MG TABLET PO SCH ×3 (08:08→21:11)
[2022-02-11] MEDS: PANTOPRAZOLE 40 MG TABLET.DR. PO SCH (08:12)
[2022-02-11] MEDS: ENOXAPARIN 30 MG/0.3 ML SYRINGE. SQ SCH (08:12)
[2022-02-11] MEDS: INSULIN LISPRO 300 UNITS/3 ML VIAL. SQ SCH ×6 (08:14→16:49)
--- NOTE | 2022-02-11 08:56 | CONS ---
DATE OF CONSULTATION: 02/08/2022 REASON FOR CONSULTATION: Elevated blood pressure. HISTORY OF PRESENT ILLNESS: The patient is a pleasant 81-year-old woman with past medical history as noted below, who presents to the hospital in the setting of shortness of breath. Upon arrival, there was some concern of EKG changes, but her blood pressure was greater than 250 systolic and after appropriate treatment, her blood pressure improved and her chest pain and dyspnea also improved. The patient was gently diuresed and admitted to the hospital for further evaluation and treatment. In speaking with the patient, she denies any significant anginal symptoms, but does have chest heaviness, but no significant pain. She was in her usual state of health and called 911 because she was having shortness of breath at home and she also ran out of her medications as well. The patient usually lives by herself and gets around with a walker. She does not have any significant health at home for most activities. PAST MEDICAL HISTORY: 1. Type 2 diabetes. 2. High cholesterol. 3. Dyslipidemia. 4. Hypertension. 5. Presumed coronary artery disease with prior history of coronary artery bypass. 6. Appendectomy. ALLERGIES: No known drug allergies. FAMILY HISTORY: Noncontributory. SOCIAL HISTORY: The patient is a former smoker. CURRENT CARDIOVASCULAR MEDICATIONS: Amlodipine 10 mg daily, atorvastatin 40 mg daily, aspirin 81 mg daily, lisinopril 20 mg daily, labetalol as needed. REVIEW OF SYSTEMS: The patient is complaining of some dysphagia symptoms as well. She says that her food sometimes gets stuck in her throat. PHYSICAL EXAMINATION: VITAL SIGNS: Afebrile, blood pressure 177/65, 94% on 2 liters nasal cannula. GENERAL: She is alert and oriented, in no acute distress. HEAD AND NECK: Unremarkable. CARDIAC: Regular rate and rhythm without any obvious murmurs, rubs or gallops. LUNGS: Clear to auscultation bilaterally. ABDOMEN: Soft, nontender, nondistended. EXTREMITIES: Without any clubbing, cyanosis or edema. NEUROLOGIC: No focal deficits. MUSCULOSKELETAL: No trauma. DIAGNOSTIC STUDIES: EKG demonstrates sinus rhythm with mild left ventricular hypertrophy and left ventricular strain pattern. Cardiac enzymes are within normal limits on initial presentation at 14. IMPRESSION: 1. Dyspnea, likely secondary to hypertensive emergency and likely in the setting of medication noncompliance. 2. Probable chronic obstructive pulmonary disease exacerbation. 3. History of recent dysphagia. Cannot rule out aspiration. 4. Dyslipidemia. 5. Type 2 diabetes. 6. Prior history of coronary artery disease, status post bypass with a fairly normal EKG and negative cardiac enzymes. RECOMMENDATIONS: We will plan for initiation of antihypertensive therapy and reassess after obtaining an echocardiogram to determine whether or not she merits any further ischemic evaluation. Thank you for this consultation. ALONZO DR: Annalisa TID: [id number]
[2022-02-11] MEDS: INSULIN GLARGINE SYRINGE. SQ SCH ×2 (09:00→21:25)
--- NOTE | 2022-02-11 10:40 | CONS ---
DATE OF CONSULTATION: 02/11/2022 PULMONARY CONSULTATION ATTENDING PHYSICIAN: Dr. Dobson. REASON FOR CONSULTATION: Dyspnea. HISTORY OF PRESENT ILLNESS: The patient is an 81-year-old female who has past medical history of CAD, history of diabetes, hypertension. She was brought into the hospital with complaint of increasing dyspnea. The patient had shortness of breath started rather quickly. She said she also has a cough with some dark sputum production. No fever, no chills. No chest pains. She is not vaccinated for COVID. She is on home oxygen at 2 liters. She was noted to be in hypertensive urgency with a systolic blood pressure of 250. Chest x-ray reviewed. It shows slightly prominent interstitial markings. There was no definite consolidation seen. The patient is currently on oxygen at 2 liters, saturation 96%. She is afebrile. Consultation requested for further evaluation and management. PAST MEDICAL HISTORY: Coronary artery disease, type 2 diabetes, dyslipidemia, hypertension, hypothyroidism. PAST SURGICAL HISTORY: Appendectomy, cholecystectomy. REVIEW OF SYSTEMS: Twelve-point review of system obtained. Pertinent positives discussed in my present illness, otherwise noncontributory. All systems that were negative were reviewed as well. ALLERGIES: None. MEDICATIONS: Reviewed as listed in the MRAD. SOCIAL HISTORY: She smoked for about 20 years. She quit in the 80s. FAMILY HISTORY: Noncontributory to lungs. ALLERGIES: None. PHYSICAL EXAMINATION: VITAL SIGNS: Reviewed. Blood pressure is now 176 systolic. Afebrile, pulse ox 96% on 2 liters. LUNGS: With diminished breath sounds bilaterally. CARDIOVASCULAR: With a regular rate. ABDOMEN: Soft, nontender. EXTREMITIES: With no pitting edema. LABORATORY DATA: Reviewed. BUN 42, creatinine 1.3. Her sodium 135. D-dimer 2.25. White cell count 12.4, hemoglobin 13.1 and platelets are 247. ABGs with a pH of 7.45, pCO2 of 36 and a pO2 of 185. This was on 50% oxygen. IMPRESSION: 1. Acute on chronic hypoxic respiratory failure secondary to possible acute exacerbation of chronic obstructive pulmonary disease and acute bronchitis. Cannot exclude congestive heart failure due to hypertensive crisis. 2. Abnormal chest x-ray with mildly prominent interstitial markings. We will obtain noncontrast CT chest to better assess interstitial lung disease versus congestive heart failure. 3. Previous echo with normal ejection fraction. 4. 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 5. Prerenal azotemia. 6. Acute bronchitis. 7. Abnormal D-dimer. Clinically, less likely thromboembolic disease. We will obtain venous Dopplers. RECOMMENDATIONS: 1. Continue present oxygen at 2 liters, keep saturation 92% and above. 2. Continue with IV Solu-Medrol. 3. DuoNebs. 4. Obtain venous Dopplers of lower extremities. 5. Obtain noncontrast CT chest. 6. Lovenox for DVT prophylaxis. 7. Discussed with RN. We will follow along with you. LYDIA DR: Volodymyr TID: [id number] MTDD
[2022-02-11 11:00] VITALS: BP 194/83
[2022-02-11] MEDS: LABETALOL 20 MG/4 ML DISP.SYRIN. IVP PRN (11:15)
[2022-02-11] MEDS: cefTRIAXone IV Push 1 GM VIAL. IVP SCH (11:15)
[2022-02-11] MEDS: IPRATRPIUM/ALBUTEROL 0.5/2.5MG 3 ML NEBU. NEB SCH ×3 (12:31→20:29)
--- NOTE | 2022-02-11 12:55 | PDOC ---
[facility] PROGRESS NOTE Date of Service DOS: DATE: 02/11/22 TIME: 12:51 Chief Complaint Chief Complaint Assessment/Plan Acute hypoxic respiratory failure Hypertensive urgency, patient ran out of medications Acute COPD exacerbation Chronic kidney disease History of COPD History of diabetes mellitus type 2 History of CAD History of dyslipidemia History of hypothyroidism Pulmonology consulted for dyspnea ongoing Pending DVT ultrasound Pending Noncon CT of the chest Cardiology consult Lovenox for DVT prophylaxis Protonix GI prophylaxis ADA diet CODE STATUS full Discussed with RN and SW Disposition inpatient management as above DPOA: Son History of Present Illness History of Present Illness 81 year old female presents with respiratory distress and brought in by medics. Patient reported progressive shortness of breath that suddenly became worse today. Patient was brought in a CPAP machine. Patient was hypertensive with an SBP of 250. Patient states that she has been noncompliant with her blood pressure medication as she had ran out of her medications as well she has not been compliant with her COPD meds as it they gave her palpitations. Patient de nies chest pain. Patient was given nitro in the field with minimal relief. Of note patient lives by herself and she gets around with a walker and sometimes a cane. She does have a [id number] who lives nearby her but she does not provide any help. Patient does have a technician automatic at home. 02/10/2022 No acute events overnight. Patient seen examined bedside. Pressures remain lab ile. Amlodipine started today. We will continue to observe. PT OT evaluate and recommend SNF placement. Vitals/I&O Vitals/I&O: Vital Signs Date Time Temp Pulse Resp B/P (MAP) Pulse Ox O2 Delivery O2 Flow Rate FiO2 02/11/22 11:15 54 194/83 02/11/22 11:00 97.4 20 94 Nasal Cannula 2.0 97.4 I & O 02/10/22 02/10/22 02/11/22 15:00 23:00 07:00 Intake Total 230 ml Output Total 200 ml 200 ml Balance 230 ml -200 ml -200 ml Physical Exam General: Alert Heart: Regular rate Lungs: Clear, Crackles Abdomen: Normal bowel sounds Extremities: No clubbing Labs Labs: Laboratory Tests Test 02/10/22 16:56 02/10/22 20:39 02/11/22 03:45 02/11/22 07:39 Glucose (Fingerstick) 219 mg/dL (70-99) 298 mg/dL (70-99) 236 mg/dL (70-99) White Blood Count 12.4 x10^3/uL (4.0-11.0) Red Blood Count 4.56 x10^6/uL (3.50-5.40) Hemoglobin 13.1 g/dL (12.0-15.5) Hematocrit 40.6 % (36.0-47.0) Mean Corpuscular Volume 89 fL (79-100) Mean Corpuscular Hemoglobin 29 pg (25-35) Mean Corpuscular Hemoglobin Concent 32 g/dL (31-37) Red Cell Distribution Width 14.4 % (11.5-14.5) Platelet Count 247 x10^3/uL (140-400) Neutrophils (%) (Auto) 93 % (31-73) Lymphocytes (%) (Auto) 5 % (24-48) Monocytes (%) (Auto) 2 % (0-9) Eosinophils (%) (Auto) 0 % (0-3) Basophils (%) (Auto) 0 % (0-3) Neutrophils # (Auto) 11.5 x10^3/uL (1.8-7.7) Lymphocytes # (Auto) 0.7 x10^3/uL (1.0-4.8) Monocytes # (Auto) 0.2 x10^3/uL (0.0-1.1) Eosinophils # (Auto) 0.0 x10^3/uL (0.0-0.7) Basophils # (Auto) 0.0 x10^3/uL (0.0-0.2) Sodium Level 135 mmol/L (136-145) Potassium Level 4.3 mmol/L (3.5-5.1) Chloride Level 101 mmol/L (98-107) Carbon Dioxide Level 27 mmol/L (21-32) Anion Gap 7 (6-14) Blood Urea Nitrogen 48 mg/dL (7-20) Creatinine 1.3 mg/dL (0.6-1.0) Estimated GFR (Cockcroft-Gault) 39.2 Glucose Level 268 mg/dL (70-99) Calcium Level 9.9 mg/dL (8.5-10.1) Magnesium Level 2.1 mg/dL (1.8-2.4) Test 02/11/22 11:50 Glucose (Fingerstick) 286 mg/dL (70-99) Assessment and Plan Assessmemt and Plan Problems Medical Problems: (1) Chest pain Status: Acute (2) Hypertensive urgency Status: Acute Comment Review of Relevant I have reviewed the following items anna (where applicable) has been applied. Medications: Current Medications Medications (Trade) Dose Ordered Sig/Vicky Route PRN Reason Start Time Stop Time Status Last Admin Dose Admin Amlodipine Besylate (Norvasc) 10 mg DAILY PO 02/11/22 09:00 02/11/22 08:11 Polyethylene Glycol (miraLAX PACKET) 17 gm Q6HRS PO 02/10/22 15:47 02/11/22 06:23 Insulin Human Lispro (HumaLOG) 5 units TIDWMEALS SQ 02/11/22 08:45 02/11/22 12:00 Albuterol/ Ipratropium (Duoneb) 3 ml RTQID NEB 02/11/22 12:00 02/11/22 12:31 Ceftriaxone Sodium (Rocephin) 1 gm Q24H IVP 02/11/22 11:00 02/11/22 11:15 Justifications for Admission Other Justification COPD exacerbation MARIA DEL ROSARIO CORONA MD Feb 11, 2022 12:55
--- NOTE | 2022-02-11 14:07 | PDOC ---
CARDIOLOGY PROGRESS NOTE SUBJECTIVE: No new events overnight. The patient denies any chest pain. She continues to have dyspnea. She has been seen by pulmonary and is planned for a CT scan of the chest. OBJECTIVE: Vital Signs/I&O: Vital Signs Date Time Temp Pulse Resp B/P (MAP) Pulse Ox O2 Delivery O2 Flow Rate FiO2 02/11/22 11:15 54 194/83 02/11/22 11:00 97.4 20 94 Nasal Cannula 2.0 97.4 I & O 02/10/22 02/10/22 02/11/22 15:00 23:00 07:00 Intake Total 230 ml Output Total 200 ml 200 ml Balance 230 ml -200 ml -200 ml Objective: GEN.: No apparent distress. Alert and oriented. HEENT: Head is normocephalic, atraumatic NECK: Supple. LUNGS: Decreased breath sounds with faint wheezing HEART: RRR, S1, S2 present. Peripheral pulses intact ABDOMEN: Soft, nontender. Positive bowel sounds. EXTREMITIES: Without any cyanosis. NEUROLOGIC: Normal speech, normal tone PSYCHIATRIC: Normal affect, normal mood. SKIN: No ulcerations CURRENT MEDICATIONS: Current Medications Medications (Trade) Dose Ordered Sig/Vicky Route PRN Reason Start Time Stop Time Status Last Admin Dose Admin Amlodipine Besylate (Norvasc) 10 mg DAILY PO 02/11/22 09:00 02/11/22 08:11 Polyethylene Glycol (miraLAX PACKET) 17 gm Q6HRS PO 02/10/22 15:47 02/11/22 06:23 Insulin Human Lispro (HumaLOG) 5 units TIDWMEALS SQ 02/11/22 08:45 02/11/22 12:00 Albuterol/ Ipratropium (Duoneb) 3 ml RTQID NEB 02/11/22 12:00 02/11/22 12:31 Ceftriaxone Sodium (Rocephin) 1 gm Q24H IVP 02/11/22 11:00 02/11/22 11:15 DIAGNOSTIC TESTING: Labs reviewed. Labs: Laboratory Tests 02/11/22 03:45 Laboratory Tests Test 02/10/22 16:56 02/10/22 20:39 02/11/22 03:45 02/11/22 07:39 Glucose (Fingerstick) 219 mg/dL (70-99) H 298 mg/dL (70-99) H 236 mg/dL (70-99) H White Blood Count 12.4 x10^3/uL (4.0-11.0) H Red Blood Count 4.56 x10^6/uL (3.50-5.40) Hemoglobin 13.1 g/dL (12.0-15.5) Hematocrit 40.6 % (36.0-47.0) Mean Corpuscular Volume 89 fL (79-100) Mean Corpuscular Hemoglobin 29 pg (25-35) Mean Corpuscular Hemoglobin Concent 32 g/dL (31-37) Red Cell Distribution Width 14.4 % (11.5-14.5) Platelet Count 247 x10^3/uL (140-400) Neutrophils (%) (Auto) 93 % (31-73) H Lymphocytes (%) (Auto) 5 % (24-48) L Monocytes (%) (Auto) 2 % (0-9) Eosinophils (%) (Auto) 0 % (0-3) Basophils (%) (Auto) 0 % (0-3) Neutrophils # (Auto) 11.5 x10^3/uL (1.8-7.7) H Lymphocytes # (Auto) 0.7 x10^3/uL (1.0-4.8) L Monocytes # (Auto) 0.2 x10^3/uL (0.0-1.1) Eosinophils # (Auto) 0.0 x10^3/uL (0.0-0.7) Basophils # (Auto) 0.0 x10^3/uL (0.0-0.2) Sodium Level 135 mmol/L (136-145) L Potassium Level 4.3 mmol/L (3.5-5.1) Chloride Level 101 mmol/L (98-107) Carbon Dioxide Level 27 mmol/L (21-32) Anion Gap 7 (6-14) Blood Urea Nitrogen 48 mg/dL (7-20) H Creatinine 1.3 mg/dL (0.6-1.0) H Estimated GFR (Cockcroft-Gault) 39.2 Glucose Level 268 mg/dL (70-99) H Calcium Level 9.9 mg/dL (8.5-10.1) Test 02/11/22 11:50 Glucose (Fingerstick) 286 mg/dL (70-99) H ASSESSMENT: 1. Acute hypertensive urgency 2. Presumed diastolic heart failure 3. COPD 4. Dysphagia PLAN: 1. Have increased the patient's lisinopril and added hydralazine to her amlodipine. We will see if this improves her blood pressure. Depending on CT scan evaluation and the patient's symptoms we may consider right heart catheterization for further donation of her dyspnea and/or left heart catheterization. 2. Await GI evaluation for dysphagia. Supportive care. Justicifation of Admission Dx: Justifications for Admission: Justification of Admission Dx: Yes Respiratory Failure: Severe Resp Distress DEEPALI ASCENCIO MD Feb 11, 2022 14:07
[2022-02-11 14:48] VITALS: BP 167/72
--- NOTE | 2022-02-11 15:41 | PDOC2 ---
GI CONSULT Reason For Consult: dysphagia HPI: HPI: 81 year old female admitted with hypertensive urgency who admits to dysphagia that began three days priro to admissions. She states that solids and liquids feel like they stick in her upper chest. She often spits up water that she drank earlier. She has not vomited any foods. she has never had an EGD and had a CT chest done that is currently pending results. She was last seen by GI at [facility] in 2016 for ischemic colitis. She states that she had a colonoscopy 10 years ago and was told that she had diverticulos is. She also admits to constipation and feels that she has "blown out her left side. She admits to a right sided abdominal hernia. PMH: PMH: PAST MEDICAL HISTORY: 1. Type 2 diabetes. 2. High cholesterol. 3. Dyslipidemia. 4. Hypertension. 5. Presumed coronary artery disease with prior history of coronary artery bypass. 6. Appendectomy. 7. Ischemic colitis 2016 ALLERGIES: No known drug allergies. FAMILY HISTORY: Noncontributory. SOCIAL HISTORY: The patient is a former smoker. CURRENT MEDICATIONS: per MAR FH: Family History: Cancer Social History: ALCOHOL: none Drugs: None ROS: per HPI VItals: Vitals: Vital Signs Date Time Temp Pulse Resp B/P (MAP) Pulse Ox O2 Delivery O2 Flow Rate FiO2 02/11/22 14:48 55 20 167/72 (103) 97 Nasal Cannula 2.0 02/11/22 11:00 97.4 97.4 Labs: Labs: Laboratory Tests Test 02/10/22 16:56 02/10/22 20:39 02/11/22 03:45 02/11/22 07:39 Glucose (Fingerstick) 219 mg/dL (70-99) 298 mg/dL (70-99) 236 mg/dL (70-99) White Blood Count 12.4 x10^3/uL (4.0-11.0) Red Blood Count 4.56 x10^6/uL (3.50-5.40) Hemoglobin 13.1 g/dL (12.0-15.5) Hematocrit 40.6 % (36.0-47.0) Mean Corpuscular Volume 89 fL (79-100) Mean Corpuscular Hemoglobin 29 pg (25-35) Mean Corpuscular Hemoglobin Concent 32 g/dL (31-37) Red Cell Distribution Width 14.4 % (11.5-14.5) Platelet Count 247 x10^3/uL (140-400) Neutrophils (%) (Auto) 93 % (31-73) Lymphocytes (%) (Auto) 5 % (24-48) Monocytes (%) (Auto) 2 % (0-9) Eosinophils (%) (Auto) 0 % (0-3) Basophils (%) (Auto) 0 % (0-3) Neutrophils # (Auto) 11.5 x10^3/uL (1.8-7.7) Lymphocytes # (Auto) 0.7 x10^3/uL (1.0-4.8) Monocytes # (Auto) 0.2 x10^3/uL (0.0-1.1) Eosinophils # (Auto) 0.0 x10^3/uL (0.0-0.7) Basophils # (Auto) 0.0 x10^3/uL (0.0-0.2) Sodium Level 135 mmol/L (136-145) Potassium Level 4.3 mmol/L (3.5-5.1) Chloride Level 101 mmol/L (98-107) Carbon Dioxide Level 27 mmol/L (21-32) Anion Gap 7 (6-14) Blood Urea Nitrogen 48 mg/dL (7-20) Creatinine 1.3 mg/dL (0.6-1.0) Estimated GFR (Cockcroft-Gault) 39.2 Glucose Level 268 mg/dL (70-99) Calcium Level 9.9 mg/dL (8.5-10.1) Magnesium Level 2.1 mg/dL (1.8-2.4) Test 02/11/22 11:50 Glucose (Fingerstick) 286 mg/dL (70-99) Imaging: Imaging: awaiting chest CT PE: GEN: NAD HEENT: Atraumatic, PERRLA LUNGS: CTAB HEART: RRR, no murmurs ABD: NABS, S/ND/NT, no masses EXTREMITY: No edema SKIN: No rashes, no jaundice NEURO/PSYCH: A & O 3 A/P: A/P: A/P: 1) Dysphagia: Will await CT scan and consider esophgram pending results. Agree with PPI 2) Constipation: Agree with miralaROZ MasseyA M MD Feb 11, 2022 15:41
--- NOTE | 2022-02-11 16:07 | RAD ---
Exam: Bilateral lower extremity venous duplex study INDICATION: Leg swelling TECHNIQUE: Using a combination of real-time ultrasound imaging and color-flow and pulse Doppler imagi ng techniques along with graded compression and augmentation, duplex evaluation of the deep venous sy stems of bilateral lower extremity was performed. Multiple images were obtained. Findings: There is no sonographic evidence for deep venous thrombosis involving the visualized deep venous stru ctures of the bilateral lower extremity. IMPRESSION: No acute DVT in the bilateral lower extremities. Electronically signed by: Elva Boo MD (02/11/2022 4:04 PM) [facility]
--- NOTE | 2022-02-11 16:14 | RAD ---
Exam: CT of chest without contrast INDICATION: CHF TECHNIQUE: Sequential axial images through the chest obtained without IV contrast. Sagittal and coron al reformatted images were reconstructed from the axial data and reviewed. Exposure: One or more of the following in the visualized dose reduction techniques were utilized for this examination: 1. Automated exposure control 2. Adjustment of the MA and/or KV according to patient size 3. Use of iterative of reconstructive technique Comparisons: 02/08/2022 FINDINGS: Visualized portions of the thyroid are unremarkable. No enlarged mediastinal lymph nodes are identifi ed. Heart size is normal. Mild coronary artery calcifications. Thoracic aorta has normal course and calib er. Pulmonary artery is not enlarged. Airways are patent. Patchy tree-in-bud nodularity noted in the right upper lobe. No consolidation or pneumothorax. No pleural effusion or thickening. Visualized upper abdomen is unremarkable. Sternotomy wires are noted. No suspicious osseous lesions or acute fractures. IMPRESSION: Tree-in-bud nodularity noted in the right upper lobe may be infectious or inflammatory in etiology. Electronically signed by: Elva Boo MD (02/11/2022 4:11 PM) [facility] [place]
[2022-02-11 19:40] VITALS: BP 147/59
[2022-02-11] MEDS: ATORVASTATIN CALCIUM 40 MG TABLET. PO SCH (21:09)
[2022-02-11 23:30] VITALS: BP 141/52
[2022-02-12 03:50] VITALS: BP 179/74
[2022-02-12] MEDS: ACETAMINOPHEN 325 MG TABLET. PO PRN (04:07)
[2022-02-12] MEDS: methylPREDNISolone SOD SUCC PF 40 MG/ML VIAL. IV SCH ×3 (05:43→17:10)
[2022-02-12] MEDS: POLYETHYLENE GLYCOL 3350 17 GM PACKET. PO SCH (05:44)
[2022-02-12 06:45] VITALS: BP 182/73
[2022-02-12] MEDS: IPRATRPIUM/ALBUTEROL 0.5/2.5MG 3 ML NEBU. NEB SCH ×4 (07:19→21:49)
[2022-02-12] MEDS: PANTOPRAZOLE 40 MG TABLET.DR. PO SCH (07:30)
[2022-02-12] MEDS: ASPIRIN ENTERIC COATED 81 MG TABLET.DR. PO SCH (08:00)
[2022-02-12] MEDS: INSULIN LISPRO 300 UNITS/3 ML VIAL. SQ SCH ×6 (08:00→17:00)
--- NOTE | 2022-02-12 08:13 | PDOC ---
PULMONARY PROGRESS NOTES DATE: 02/12/22 TIME: 08:11 Subjective Feels better. Vitals Vital Signs Date Time Temp Pulse Resp B/P (MAP) Pulse Ox O2 Delivery O2 Flow Rate FiO2 02/12/22 07:20 97 Nasal Cannula 2.0 02/12/22 06:45 97.7 64 22 182/73 (109) 97.7 General: Alert, No acute distress Lungs: Clear Cardiovascular: S1, S2 Abdomen: Soft Extremities: No Edema Labs Laboratory Tests Test 02/10/22 10:52 02/10/22 16:56 02/10/22 20:39 02/11/22 03:45 Glucose (Fingerstick) 301 mg/dL (70-99) 219 mg/dL (70-99) 298 mg/dL (70-99) White Blood Count 12.4 x10^3/uL (4.0-11.0) Red Blood Count 4.56 x10^6/uL (3.50-5.40) Hemoglobin 13.1 g/dL (12.0-15.5) Hematocrit 40.6 % (36.0-47.0) Mean Corpuscular Volume 89 fL (79-100) Mean Corpuscular Hemoglobin 29 pg (25-35) Mean Corpuscular Hemoglobin Concent 32 g/dL (31-37) Red Cell Distribution Width 14.4 % (11.5-14.5) Platelet Count 247 x10^3/uL (140-400) Neutrophils (%) (Auto) 93 % (31-73) Lymphocytes (%) (Auto) 5 % (24-48) Monocytes (%) (Auto) 2 % (0-9) Eosinophils (%) (Auto) 0 % (0-3) Basophils (%) (Auto) 0 % (0-3) Neutrophils # (Auto) 11.5 x10^3/uL (1.8-7.7) Lymphocytes # (Auto) 0.7 x10^3/uL (1.0-4.8) Monocytes # (Auto) 0.2 x10^3/uL (0.0-1.1) Eosinophils # (Auto) 0.0 x10^3/uL (0.0-0.7) Basophils # (Auto) 0.0 x10^3/uL (0.0-0.2) Sodium Level 135 mmol/L (136-145) Potassium Level 4.3 mmol/L (3.5-5.1) Chloride Level 101 mmol/L (98-107) Carbon Dioxide Level 27 mmol/L (21-32) Anion Gap 7 (6-14) Blood Urea Nitrogen 48 mg/dL (7-20) Creatinine 1.3 mg/dL (0.6-1.0) Estimated GFR (Cockcroft-Gault) 39.2 Glucose Level 268 mg/dL (70-99) Calcium Level 9.9 mg/dL (8.5-10.1) Magnesium Level 2.1 mg/dL (1.8-2.4) Test 02/11/22 07:39 02/11/22 11:50 02/11/22 16:33 02/11/22 17:57 Glucose (Fingerstick) 236 mg/dL (70-99) 286 mg/dL (70-99) 245 mg/dL (70-99) 233 mg/dL (70-99) Test 02/11/22 21:14 02/12/22 07:42 Glucose (Fingerstick) 212 mg/dL (70-99) 197 mg/dL (70-99) Laboratory Tests Test 02/11/22 11:50 02/11/22 16:33 02/11/22 17:57 02/11/22 21:14 Glucose (Fingerstick) 286 mg/dL (70-99) 245 mg/dL (70-99) 233 mg/dL (70-99) 212 mg/dL (70-99) Test 02/12/22 07:42 Glucose (Fingerstick) 197 mg/dL (70-99) Medications Active Scripts Medications Dose Route/Sig Max Daily Dose Days Date Category Lisinopril 20 Mg Tablet 1 Tab PO DAILY 02/08/22 Reported Atorvastatin Calcium 10 Mg Tablet 10 Mg PO QHS 30 04/23/19 Rx Metformin Hcl 1,000 Mg Tablet 1,000 Mg PO [id number] 03/22/18 Reported Glimepiride 4 Mg Tablet 4 Mg PO DAILY 03/22/18 Reported Impression . 1. Acute on chronic hypoxic respiratory failure secondary to possible acute exacerbation of chronic obstructive pulmonary disease and acute bronchitis. Cannot exclude congestive heart failure due to hypertensive crisis. 2. Abnormal chest x-ray with mildly prominent interstitial markings. We will obtain noncontrast CT chest to better assess interstitial lung disease versus congestive heart failure. 3. Previous echo with normal ejection fraction. 4. 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 5. Prerenal azotemia. 6. Acute bronchitis. 7. Abnormal D-dimer. Clinically, less likely thromboembolic disease. We will obtain venous Dopplers. Plan . RECOMMENDATIONS: 1. Continue present oxygen at 2 liters, keep saturation 92% and above. 2. Continue with IV Solu-Medrol. 3. DuoNebs. 4. No evidence of DVT by venous Dopplers of lower extremities. 5. CT chest reviewed. Consistent with pneumonia involving the right upper lobe, left upper lobe and minimally right lower lobe. Continue with antibiotic 6. Lovenox for DVT prophylaxis. 7. Discussed with RN. We will follow along with you. RONNELL DUNCAN MD Feb 12, 2022 08:13
[2022-02-12] MEDS: INSULIN GLARGINE SYRINGE. SQ SCH ×2 (08:50→20:35)
[2022-02-12] MEDS: LISINOPRIL 20 MG TABLET PO SCH ×2 (08:50→20:33)
[2022-02-12] MEDS: ENOXAPARIN 40 MG/0.4 ML SYRINGE. SQ SCH (08:51)
[2022-02-12 11:00] VITALS: BP 139/63
--- NOTE | 2022-02-12 11:09 | PDOC ---
Date of Service: DATE: 02/12/22 TIME: 11:07 Subjective: Subjective: She feels that dysphasia is getting better Objective: Vital Signs: Vital Signs Date Time Temp Pulse Resp B/P (MAP) Pulse Ox O2 Delivery O2 Flow Rate FiO2 02/12/22 08:50 64 182/73 02/12/22 08:00 Nasal Cannula 2.0 02/12/22 07:20 97 02/12/22 06:45 97.7 22 97.7 Labs: Laboratory Tests Test 02/11/22 11:50 02/11/22 16:33 02/11/22 17:57 02/11/22 21:14 Glucose (Fingerstick) 286 mg/dL (70-99) 245 mg/dL (70-99) 233 mg/dL (70-99) 212 mg/dL (70-99) Test 02/12/22 07:42 Glucose (Fingerstick) 197 mg/dL (70-99) Physical Exam: Physical Exam: GEN: NAD HEENT: Atraumatic, PERRLA LUNGS: CTAB HEART: RRR, no murmurs ABD: NABS, S/ND/NT, no masses EXTREMITY: No edema SKIN: No rashes, no jaundice NEURO/PSYCH: A & O 3 Assessment & Plan: Assessment : A 1) Dysphagia 2) Constipation Plan: 1) CT unrevealing for dysphasia 2) Favor esophagram Justicifation of Admission Dx: Justifications for Admission: Justification of Admission Dx: Yes Respiratory Failure: Severe Resp Distress PAYAL MEREDITH MD Feb 12, 2022 11:09
[2022-02-12] MEDS: cefTRIAXone IV Push 1 GM VIAL. IVP SCH (11:49)
--- NOTE | 2022-02-12 12:16 | PDOC ---
[facility] PROGRESS NOTE Date of Service DOS: DATE: 02/12/22 TIME: 12:15 Chief Complaint Chief Complaint Assessment/Plan Acute hypoxic respiratory failure Hypertensive urgency, patient ran out of medications Acute COPD exacerbation Chronic kidney disease History of COPD History of diabetes mellitus type 2 History of CAD History of dyslipidemia History of hypothyroidism Pulmonology consulted for dyspnea ongoing Pending DVT ultrasound Pending Noncon CT of the chest Cardiology consult Lovenox for DVT prophylaxis Protonix GI prophylaxis ADA diet CODE STATUS full Discussed with RN and SW Disposition inpatient management as above DPOA: Son History of Present Illness History of Present Illness 81 year old female presents with respiratory distress and brought in by medics. Patient reported progressive shortness of breath that suddenly became worse today. Patient was brought in a CPAP machine. Patient was hypertensive with an SBP of 250. Patient states that she has been noncompliant with her blood pressure medication as she had ran out of her medications as well she has not been compliant with her COPD meds as it they gave her palpitations. Patient de nies chest pain. Patient was given nitro in the field with minimal relief. Of note patient lives by herself and she gets around with a walker and sometimes a cane. She does have a [id number] who lives nearby her but she does not provide any help. Patient does have a rn informatics at home. 02/10/2022 No acute events overnight. Patient seen examined bedside. Pressures remain lab ile. Amlodipine started today. We will continue to observe. PT OT evaluate and recommend SNF placement. 02/12/2022 No acute events overnight. Patient seen examined bedside. Patient resting comfortably. Blood pressure is more controlled that started this morning. Saturating 96% on 2 L nasal cannula. Pending SNF placement. Patient's chart, labs, images were reviewed and discussed with RN Vitals/I&O Vitals/I&O: Vital Signs Date Time Temp Pulse Resp B/P (MAP) Pulse Ox O2 Delivery O2 Flow Rate FiO2 02/12/22 11:20 97 Nasal Cannula 1.5 02/12/22 11:00 79 20 139/63 (88) 02/12/22 06:45 97.7 97.7 I & O 02/11/22 02/11/22 02/12/22 15:00 23:00 07:00 Intake Total 200 ml 220 ml 300 ml Balance 200 ml 220 ml 300 ml Physical Exam General: Alert Heart: Regular rate Lungs: Clear Abdomen: Normal bowel sounds Extremities: No clubbing Labs Labs: Laboratory Tests Test 02/11/22 16:33 02/11/22 17:57 02/11/22 21:14 02/12/22 07:42 Glucose (Fingerstick) 245 mg/dL (70-99) 233 mg/dL (70-99) 212 mg/dL (70-99) 197 mg/dL (70-99) Test 02/12/22 11:08 Glucose (Fingerstick) 262 mg/dL (70-99) Assessment and Plan Assessmemt and Plan Problems Medical Problems: (1) Chest pain Status: Acute (2) Hypertensive urgency Status: Acute Comment Review of Relevant I have reviewed the following items anna (where applicable) has been applied. Medications: Current Medications Medications (Trade) Dose Ordered Sig/Vicky Route PRN Reason Start Time Stop Time Status Last Admin Dose Admin Lisinopril (Prinivil) 20 mg BID PO 02/11/22 14:30 02/12/22 08:50 Hydralazine HCl (Apresoline) 50 mg BID PO 02/11/22 14:30 02/12/22 09:23 DC 02/12/22 08:50 Enoxaparin Sodium (Lovenox 40mg Syringe) 40 mg DAILY SQ 02/12/22 09:00 02/12/22 08:51 Justifications for Admission Other Justification COPD exacerbation MARIA DEL ROSARIO CORONA MD Feb 12, 2022 12:16
--- NOTE | 2022-02-12 14:38 | PDOC ---
CARDIOLOGY PROGRESS NOTE SUBJECTIVE: No acute events overnight. The patient is resting comfortably and sitting up in a chair. She denies any chest pain. She reports that her breathing is improved. OBJECTIVE: Vital Signs/I&O: Vital Signs Date Time Temp Pulse Resp B/P (MAP) Pulse Ox O2 Delivery O2 Flow Rate FiO2 02/12/22 13:34 79 117/48 02/12/22 11:20 97 Nasal Cannula 1.5 02/12/22 11:00 20 02/12/22 06:45 97.7 97.7 I & O 02/11/22 02/11/22 02/12/22 15:00 23:00 07:00 Intake Total 200 ml 220 ml 300 ml Balance 200 ml 220 ml 300 ml Objective: GEN.: No apparent distress. Alert and oriented. HEENT: Head is normocephalic, atraumatic NECK: Supple. LUNGS: Mild bilateral rhonchi HEART: RRR, S1, S2 present. Peripheral pulses intact ABDOMEN: Soft, nontender. Positive bowel sounds. EXTREMITIES: Without any cyanosis. NEUROLOGIC: Normal speech, normal tone PSYCHIATRIC: Normal affect, normal mood. SKIN: No ulcerations CURRENT MEDICATIONS: Hydralazine, amlodipine, lisinopril, atorvastatin and aspirin DIAGNOSTIC TESTING: CT scan reviewed concerning for pneumonia Labs: Laboratory Tests Test 02/11/22 16:33 02/11/22 17:57 02/11/22 21:14 02/12/22 07:42 Glucose (Fingerstick) 245 mg/dL (70-99) H 233 mg/dL (70-99) H 212 mg/dL (70-99) H 197 mg/dL (70-99) H Test 02/12/22 11:08 Glucose (Fingerstick) 262 mg/dL (70-99) H ASSESSMENT: 1. Probable acute bronchitis and pneumonia 2. Hypertensive urgency PLAN: 1. Continue current medications. Appreciate pulmonary input. Appreciate GI input for dysphagia. Stable from a cardiovascular standpoint. Supportive care for now. Justicifation of Admission Dx: Justifications for Admission: Justification of Admission Dx: Yes Respiratory Failure: Severe Resp Distress DEEPALI ASCENCIO MD Feb 12, 2022 14:38
[2022-02-12 14:56] VITALS: BP 111/50
[2022-02-12 19:52] VITALS: BP 117/58
[2022-02-12] MEDS: LACTOBACILLUS RHAMNOSUS GG 1 CAPSULE. PO SCH (20:32)
[2022-02-12] MEDS: ATORVASTATIN CALCIUM 40 MG TABLET. PO SCH (20:32)
[2022-02-12 23:10] VITALS: BP 127/57
[2022-02-13] MEDS: methylPREDNISolone SOD SUCC PF 40 MG/ML VIAL. IV SCH ×3 (00:02→12:48)
[2022-02-13 02:22] VITALS: BP 142/55
[2022-02-13 07:00] VITALS: BP 138/56
[2022-02-13] MEDS: IPRATRPIUM/ALBUTEROL 0.5/2.5MG 3 ML NEBU. NEB SCH ×4 (07:18→20:43)
[2022-02-13] MEDS: PANTOPRAZOLE 40 MG TABLET.DR. PO SCH (09:03)
[2022-02-13] MEDS: LISINOPRIL 20 MG TABLET PO SCH ×2 (09:04→21:49)
[2022-02-13] MEDS: ASPIRIN ENTERIC COATED 81 MG TABLET.DR. PO SCH (09:04)
[2022-02-13] MEDS: LACTOBACILLUS RHAMNOSUS GG 1 CAPSULE. PO SCH ×2 (09:04→21:49)
[2022-02-13] MEDS: ENOXAPARIN 40 MG/0.4 ML SYRINGE. SQ SCH (09:05)
[2022-02-13] MEDS: INSULIN LISPRO 300 UNITS/3 ML VIAL. SQ SCH ×6 (09:17→17:00)
[2022-02-13] MEDS: INSULIN GLARGINE SYRINGE. SQ SCH ×2 (10:30→21:50)
[2022-02-13] MEDS: cefTRIAXone IV Push 1 GM VIAL. IVP SCH (10:32)
--- NOTE | 2022-02-13 10:37 | PDOC ---
Date of Service: DATE: 02/13/22 TIME: 10:34 Subjective: Subjective: Swallowing much better - tolerating diet, swallowing pills without issue. Objective: Objective: Stools charted. Vital Signs: Vital Signs Date Time Temp Pulse Resp B/P (MAP) Pulse Ox O2 Delivery O2 Flow Rate FiO2 02/13/22 09:05 70 142/55 02/13/22 07:18 97 Nasal Cannula 1.5 02/13/22 07:00 97.6 20 97.6 Labs: Laboratory Tests Test 02/12/22 11:08 02/12/22 16:28 02/12/22 20:57 02/13/22 08:27 Glucose (Fingerstick) 262 mg/dL 226 mg/dL 180 mg/dL 243 mg/dL Imaging: LE US 02/11 IMPRESSION: No acute DVT in the bilateral lower extremities. Chest CT IMPRESSION: Tree-in-bud nodularity noted in the right upper lobe may be infectious or inflammatory in etiology. CXR 02/08 IMPRESSION: 1. Mild cardiomegaly. 2. Left upper lobe scarring or atelectasis. 3. Mild chronic interstitial lung disease. 4. No new confluent pneumonia. PE: GEN: NAD LUNGS: diminished, NC 1.5L HEART: RRR ABD: NABS, S/ND/NT NEURO/PSYCH: A & O 3 A/P: Dysphagia - resolved? Constipation - resolving -- Hold on esophagram for now. Continue PPI. Treat constipation as needed. Justicifation of Admission Dx: Justifications for Admission: Justification of Admission Dx: Yes Respiratory Failure: Severe Resp Distress ILIA HENDRICKSON Feb 13, 2022 10:37
[2022-02-13 11:00] VITALS: BP 122/56
--- NOTE | 2022-02-13 11:25 | PDOC ---
PULMONARY PROGRESS NOTES DATE: 02/13/22 TIME: 11:24 Subjective Feels better. Vitals Vital Signs Date Time Temp Pulse Resp B/P (MAP) Pulse Ox O2 Delivery O2 Flow Rate FiO2 02/13/22 09:05 70 142/55 02/13/22 07:18 97 Nasal Cannula 1.5 02/13/22 07:00 97.6 20 97.6 General: Alert, No acute distress Lungs: Clear Cardiovascular: S1, S2 Abdomen: Soft Extremities: No Edema Labs Laboratory Tests Test 02/11/22 11:50 02/11/22 16:33 02/11/22 17:57 02/11/22 21:14 Glucose (Fingerstick) 286 mg/dL (70-99) 245 mg/dL (70-99) 233 mg/dL (70-99) 212 mg/dL (70-99) Test 02/12/22 07:42 02/12/22 11:08 02/12/22 16:28 02/12/22 20:57 Glucose (Fingerstick) 197 mg/dL (70-99) 262 mg/dL (70-99) 226 mg/dL (70-99) 180 mg/dL (70-99) Test 02/13/22 08:27 02/13/22 11:21 Glucose (Fingerstick) 243 mg/dL (70-99) 229 mg/dL (70-99) Laboratory Tests Test 02/12/22 16:28 02/12/22 20:57 02/13/22 08:27 02/13/22 11:21 Glucose (Fingerstick) 226 mg/dL (70-99) 180 mg/dL (70-99) 243 mg/dL (70-99) 229 mg/dL (70-99) Medications Active Scripts Medications Dose Route/Sig Max Daily Dose Days Date Category Lisinopril 20 Mg Tablet 1 Tab PO DAILY 02/08/22 Reported Atorvastatin Calcium 10 Mg Tablet 10 Mg PO QHS 30 04/23/19 Rx Metformin Hcl 1,000 Mg Tablet 1,000 Mg PO [id number] 03/22/18 Reported Glimepiride 4 Mg Tablet 4 Mg PO DAILY 03/22/18 Reported Impression . 1. Acute on chronic hypoxic respiratory failure secondary to possible acute exacerbation of chronic obstructive pulmonary disease and acute bronchitis. Cannot exclude congestive heart failure due to hypertensive crisis. 2. Abnormal chest x-ray with mildly prominent interstitial markings. We will obtain noncontrast CT chest to better assess interstitial lung disease versus congestive heart failure. 3. Previous echo with normal ejection fraction. 4. 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 5. Prerenal azotemia. 6. Acute bronchitis. 7. Abnormal D-dimer. Clinically, less likely thromboembolic disease. We will obtain venous Dopplers. Plan . RECOMMENDATIONS: 1. Continue present oxygen at 2 liters, keep saturation 92% and above. 2. Continue with IV Solu-Medrol. 3. DuoNebs. 4. No evidence of DVT by venous Dopplers of lower extremities. 5. CT chest reviewed. Consistent with pneumonia involving the right upper lobe, left upper lobe and minimally right lower lobe. Continue with antibiotic 6. Lovenox for DVT prophylaxis. 7. Discussed with RN. We will follow along with you. RONNELL DUNCAN MD Feb 13, 2022 11:25
--- NOTE | 2022-02-13 11:26 | PDOC ---
JAROCHO GARCIAILY CHRIS 02/13/22 1126: CARDIO Progress Notes Date and Time Date of Service 02/13/22 Time of Evaluation 1125 Subjective Subjective: No Chest Pain, No Palpitations, No Dizziness, Other (breathing improved ) Vitals Vitals Vital Signs Date Time Temp Pulse Resp B/P (MAP) Pulse Ox O2 Delivery O2 Flow Rate FiO2 02/13/22 09:05 70 142/55 02/13/22 07:18 97 Nasal Cannula 1.5 02/13/22 07:00 97.6 20 97.6 Weight Weight [ ] Input and Output Intake and Output Intake and Output 02/13/22 07:00 Intake Total 700 ml Output Total 900 ml Balance -200 ml Intake Oral 700 ml Output Urine Total 900 ml # Bowel Movements 1 Laboratory Labs Laboratory Tests Test 02/12/22 16:28 02/12/22 20:57 02/13/22 08:27 02/13/22 11:21 Glucose (Fingerstick) 226 mg/dL (70-99) 180 mg/dL (70-99) 243 mg/dL (70-99) 229 mg/dL (70-99) Physical Exam HEENT: Neck Supple W Full Motion Chest: Symmetric LUNGS: Other (diminished) Heart: RRR (SR) Abdomen: Soft N/T Extremities: No Edema Neurology: alert, oriented, follow commands Assessment Assessment 1. Acute on chronic respiratory failure, AECOPD, PNA 2. Mild acute on chronic diastolic CHF; Echo 06/18 with preserved LV systolic function. s/p IV Lasix. appears compensated 3. Hypertensive urgency; now controlled 4. CAD s/p CABG; initial trop negative. CP free. 5. Hyperlipidemia 6. Diabetes, II 7. CKD 8. Hypothyroidism 9. H/o CVA Recommendations Secondary prevention; ASA, statin therapy. Not on BB with low-end HR Continue current antiHTN therapy Ongoing pulmonary optimization, treatment of PNA Probable outpatient ischemic evaluation Supportive care Justicifation of Admission Dx: Justifications for Admission: Justification of Admission Dx: Yes Respiratory Failure: Severe Resp Distress DEEPALI ASCENCIO MD 02/13/22 3499: CARDIO Progress Notes Plan Plan The patient was seen and interviewed as well as examined at the bedside. The chart was reviewed. The case was discussed. Agree with the plan of care. RADHAAAYUSH APRN Feb 13, 2022 11:26 DEEPALI ASCENCIO MD Feb 13, 2022 23:48
--- NOTE | 2022-02-13 12:58 | PDOC ---
[employer] PROGRESS NOTE Date of Service DOS: DATE: 02/13/22 TIME: 12:55 Chief Complaint Chief Complaint Assessment/Plan Acute hypoxic respiratory failure Hypertensive urgency, patient ran out of medications Acute COPD exacerbation Chronic kidney disease History of COPD History of diabetes mellitus type 2 History of CAD History of dyslipidemia History of hypothyroidism Pulmonology consulted for dyspnea ongoing Pending DVT ultrasound Pending Noncon CT of the chest Cardiology consult Lovenox for DVT prophylaxis Protonix GI prophylaxis ADA diet CODE STATUS full Discussed with RN and SW Disposition inpatient management as above DPOA: Son History of Present Illness History of Present Illness 81 year old female presents with respiratory distress and brought in by medics. Patient reported progressive shortness of breath that suddenly became worse today. Patient was brought in a CPAP machine. Patient was hypertensive with an SBP of 250. Patient states that she has been noncompliant with her blood pressure medication as she had ran out of her medications as well she has not been compliant with her COPD meds as it they gave her palpitations. Patient de nies chest pain. Patient was given nitro in the field with minimal relief. Of note patient lives by herself and she gets around with a walker and sometimes a cane. She does have a [id number] who lives nearby her but she does not provide any help. Patient does have a lime supervisor at home. 02/10/2022 No acute events overnight. Patient seen examined bedside. Pressures remain lab ile. Amlodipine started today. We will continue to observe. PT OT evaluate and recommend SNF placement. 02/12/2022 No acute events overnight. Patient seen examined bedside. Patient resting comfortably. Blood pressure is more controlled that started this morning. Saturating 96% on 2 L nasal cannula. Pending SNF placement. Patient's chart, labs, images were reviewed and discussed with RN 02/13 Patient evaluated examined at bedside. Up in chair eating lunch on nasal cannula. Blood pressure more controlled and stable today. At least right now is agreeable to SNF placement. Stools more regular, has not had one today but did yesterday and was solid.. We will continue IV steroids and IV antibiotics until placement found and transition to oral on discharge. Reviewed pulmonary's note and recommendations. Discussed with bedside RN. Vitals/I&O Vitals/I&O: Vital Signs Date Time Temp Pulse Resp B/P (MAP) Pulse Ox O2 Delivery O2 Flow Rate FiO2 02/13/22 11:35 96 Nasal Cannula 1.5 02/13/22 11:00 97.3 82 18 122/56 (78) 97.3 I & O 02/12/22 02/12/22 02/13/22 15:00 23:00 07:00 Intake Total 0 ml 500 ml 200 ml Output Total 400 ml 400 ml 100 ml Balance -400 ml 100 ml 100 ml Physical Exam General: Alert, Oriented X3, Cooperative Heart: Regular rate Lungs: Clear Abdomen: Normal bowel sounds Extremities: No clubbing Skin: No significant lesion Labs Labs: Laboratory Tests Test 02/12/22 16:28 02/12/22 20:57 02/13/22 08:27 02/13/22 11:21 Glucose (Fingerstick) 226 mg/dL (70-99) 180 mg/dL (70-99) 243 mg/dL (70-99) 229 mg/dL (70-99) Assessment and Plan Assessmemt and Plan Problems Medical Problems: (1) Chest pain Status: Acute (2) Hypertensive urgency Status: Acute Comment Review of Relevant I have reviewed the following items anna (where applicable) has been applied. Medications: Current Medications Medications (Trade) Dose Ordered Sig/Vicky Route PRN Reason Start Time Stop Time Status Last Admin Dose Admin Lactobacillus Rhamnosus (Culturelle) 1 cap BID PO 02/12/22 21:00 02/13/22 09:04 Justifications for Admission Other Justification COPD exacerbation RAMONA BRADSHAW MD Feb 13, 2022 12:58
[2022-02-13 15:00] VITALS: BP_SYST 116; BP_SYST 182; BP_DIAS 46; BP_DIAS 77
--- NOTE | 2022-02-13 15:39 | NUR ---
SS following up with discharge planning. SS reviewed pt chart and discussed with pt RN. Pt is currently requiring oxygen at 1.5 liters nasal canula. COVID19 negative on rapid. PT/OT recommended shelter unit. Pt requesting to go to [facility], ; fax [phone]. Referral sent as requested. COVID19 PCR requested for placement. SS will continue to follow for discharge planning.
[2022-02-13 19:28] VITALS: BP 120/48
[2022-02-13] MEDS: CEFDINIR 300 MG CAPSULE PO SCH (21:49)
[2022-02-13] MEDS: ATORVASTATIN CALCIUM 40 MG TABLET. PO SCH (21:49)
[2022-02-13 23:17] VITALS: BP 112/50
[2022-02-14 03:08] VITALS: BP 137/59
[2022-02-14 07:00] VITALS: BP 120/58
[2022-02-14] MEDS: IPRATRPIUM/ALBUTEROL 0.5/2.5MG 3 ML NEBU. NEB SCH ×4 (07:31→20:39)
[2022-02-14] MEDS: INSULIN LISPRO 300 UNITS/3 ML VIAL. SQ SCH ×6 (08:00→17:20)
--- NOTE | 2022-02-14 08:24 | PDOC ---
PULMONARY PROGRESS NOTES DATE: 02/14/22 TIME: 08:24 Subjective Patient not short of air Vitals Vital Signs Date Time Temp Pulse Resp B/P (MAP) Pulse Ox O2 Delivery O2 Flow Rate FiO2 02/14/22 07:31 97 Nasal Cannula 1.5 02/14/22 03:08 97.4 65 18 137/59 (85) 97.4 General: Alert, No acute distress Lungs: Clear Cardiovascular: S1, S2 Abdomen: Soft Extremities: No Edema Labs Laboratory Tests Test 02/12/22 11:08 02/12/22 16:28 02/12/22 20:57 02/13/22 08:27 Glucose (Fingerstick) 262 mg/dL (70-99) 226 mg/dL (70-99) 180 mg/dL (70-99) 243 mg/dL (70-99) Test 02/13/22 11:21 02/13/22 17:25 02/13/22 20:19 02/14/22 08:09 Glucose (Fingerstick) 229 mg/dL (70-99) 114 mg/dL (70-99) 129 mg/dL (70-99) 81 mg/dL (70-99) Laboratory Tests Test 02/13/22 08:27 02/13/22 11:21 02/13/22 17:25 02/13/22 20:19 Glucose (Fingerstick) 243 mg/dL (70-99) 229 mg/dL (70-99) 114 mg/dL (70-99) 129 mg/dL (70-99) Test 02/14/22 08:09 Glucose (Fingerstick) 81 mg/dL (70-99) Medications Active Scripts Medications Dose Route/Sig Max Daily Dose Days Date Category Lisinopril 20 Mg Tablet 1 Tab PO DAILY 02/08/22 Reported Atorvastatin Calcium 10 Mg Tablet 10 Mg PO QHS 30 04/23/19 Rx Metformin Hcl 1,000 Mg Tablet 1,000 Mg PO [id number] 03/22/18 Reported Glimepiride 4 Mg Tablet 4 Mg PO DAILY 03/22/18 Reported Impression . 1. Acute on chronic hypoxic respiratory failure secondary to possible acute exacerbation of chronic obstructive pulmonary disease and acute bronchitis. Cannot exclude congestive heart failure due to hypertensive crisis. 2. Abnormal chest x-ray with mildly prominent interstitial markings. We will obtain noncontrast CT chest to better assess interstitial lung disease versus congestive heart failure. 3. Previous echo with normal ejection fraction. 4. 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 5. Prerenal azotemia. 6. Acute bronchitis. 7. Abnormal D-dimer. Clinically, less likely thromboembolic disease. We will obtain venous Dopplers. Plan . Updated 02/14 PCR pending first new evaluation Insurance pending approval RECOMMENDATIONS: 1. Continue present oxygen at 2 liters, keep saturation 92% and above. 2. Continue with IV Solu-Medrol. 3. DuoNebs. 4. No evidence of DVT by venous Dopplers of lower extremities. 5. CT chest reviewed. Consistent with pneumonia involving the right upper lobe, left upper lobe and minimally right lower lobe. Continue with antibiotic 6. Lovenox for DVT prophylaxis. 7. Discussed with RN. We will follow along with you. JOSE M CAMPUZANO MD Feb 14, 2022 08:24
[2022-02-14] MEDS: ASPIRIN ENTERIC COATED 81 MG TABLET.DR. PO SCH (08:52)
[2022-02-14] MEDS: CEFDINIR 300 MG CAPSULE PO SCH ×2 (08:52→22:17)
[2022-02-14] MEDS: LACTOBACILLUS RHAMNOSUS GG 1 CAPSULE. PO SCH ×2 (08:52→22:17)
[2022-02-14] MEDS: predniSONE 20 MG TABLET PO SCH (08:53)
[2022-02-14] MEDS: LISINOPRIL 20 MG TABLET PO SCH ×2 (08:53→22:45)
[2022-02-14] MEDS: ENOXAPARIN 40 MG/0.4 ML SYRINGE. SQ SCH (08:54)
[2022-02-14] MEDS: PANTOPRAZOLE 40 MG TABLET.DR. PO SCH (08:54)
--- NOTE | 2022-02-14 10:33 | PDOC ---
Date of Service: DATE: 02/14/22 TIME: 10:32 Subjective: Subjective: No swallowing complaints. Objective: Objective: D/w nurse - no GI concerns, possible DC today. Vital Signs: Vital Signs Date Time Temp Pulse Resp B/P (MAP) Pulse Ox O2 Delivery O2 Flow Rate FiO2 02/14/22 08:53 65 137/59 02/14/22 07:31 97 Nasal Cannula 1.5 02/14/22 07:00 97.1 20 97.1 Labs: Laboratory Tests Test 02/13/22 11:21 02/13/22 17:25 02/13/22 20:19 02/14/22 08:09 Glucose (Fingerstick) 229 mg/dL 114 mg/dL 129 mg/dL 81 mg/dL PE: GEN: NAD LUNGS: clear, NC 1.5L HEART: RRR ABD: NABS, S/ND/NT NEURO/PSYCH: A & O 3 A/P: Dysphagia, cosntipation - resolved -- DC per primary on PPI. Justicifation of Admission Dx: Justifications for Admission: Justification of Admission Dx: Yes Respiratory Failure: Severe Resp Distress ILIA HENDRICKSON Feb 14, 2022 10:33
[2022-02-14 11:00] VITALS: BP 123/48
--- NOTE | 2022-02-14 11:26 | PDOC ---
[employer] PROGRESS NOTE Date of Service DOS: DATE: 02/14/22 TIME: 11:25 Chief Complaint Chief Complaint Assessment/Plan Acute hypoxic respiratory failure Hypertensive urgency, patient ran out of medications Acute COPD exacerbation Chronic kidney disease History of COPD History of diabetes mellitus type 2 History of CAD History of dyslipidemia History of hypothyroidism Pulmonology consulted for dyspnea ongoing Pending DVT ultrasound Pending Noncon CT of the chest Cardiology consult Lovenox for DVT prophylaxis Protonix GI prophylaxis ADA diet CODE STATUS full Discussed with RN and SW Disposition inpatient management as above DPOA: Son History of Present Illness History of Present Illness 81 year old female presents with respiratory distress and brought in by medics. Patient reported progressive shortness of breath that suddenly became worse today. Patient was brought in a CPAP machine. Patient was hypertensive with an SBP of 250. Patient states that she has been noncompliant with her blood pressure medication as she had ran out of her medications as well she has not been compliant with her COPD meds as it they gave her palpitations. Patient de nies chest pain. Patient was given nitro in the field with minimal relief. Of note patient lives by herself and she gets around with a walker and sometimes a cane. She does have a [id number] who lives nearby her but she does not provide any help. Patient does have a motor vehicle representative at home. 02/10/2022 No acute events overnight. Patient seen examined bedside. Pressures remain lab ile. Amlodipine started today. We will continue to observe. PT OT evaluate and recommend SNF placement. 02/12/2022 No acute events overnight. Patient seen examined bedside. Patient resting comfortably. Blood pressure is more controlled that started this morning. Saturating 96% on 2 L nasal cannula. Pending SNF placement. Patient's chart, labs, images were reviewed and discussed with RN 02/13 Patient evaluated examined at bedside. Up in chair eating lunch on nasal cannula. Blood pressure more controlled and stable today. At least right now is agreeable to SNF placement. Stools more regular, has not had one today but did yesterday and was solid.. We will continue IV steroids and IV antibiotics until placement found and transition to oral on discharge. Reviewed pulmonary's note and recommendations. Discussed with bedside RN. 02/14 Patient evaluated examined at bedside. Resting in bed on nasal cannula doing well. [facility] Auth for [facility]. Can discharge there once received. Suspect this wont be until tomorrow however. Vitals/I&O Vitals/I&O: Vital Signs Date Time Temp Pulse Resp B/P (MAP) Pulse Ox O2 Delivery O2 Flow Rate FiO2 02/14/22 11:00 96.6 72 18 123/48 (73) 94 Nasal Cannula 2.0 96.6 I & O 02/13/22 02/13/22 02/14/22 15:00 23:00 07:00 Intake Total 180 ml 180 ml 300 ml Balance 180 ml 180 ml 300 ml Physical Exam General: Alert, Oriented X3, Cooperative Heart: Regular rate Lungs: Clear Abdomen: Normal bowel sounds Extremities: No clubbing Skin: No significant lesion Labs Labs: Laboratory Tests Test 02/13/22 17:25 02/13/22 20:19 02/14/22 08:09 Glucose (Fingerstick) 114 mg/dL (70-99) 129 mg/dL (70-99) 81 mg/dL (70-99) Assessment and Plan Assessmemt and Plan Problems Medical Problems: (1) Chest pain Status: Acute (2) Hypertensive urgency Status: Acute Comment Review of Relevant I have reviewed the following items anna (where applicable) has been applied. Medications: Current Medications Medications (Trade) Dose Ordered Sig/Vicky Route PRN Reason Start Time Stop Time Status Last Admin Dose Admin Insulin Glargine (Lantus Syringe) 15 unit BID SQ 02/13/22 21:00 02/13/22 21:50 Cefdinir (Omnicef) 300 mg BID PO 02/13/22 21:00 02/14/22 08:52 Prednisone (Prednisone) 40 mg DAILY PO 02/14/22 09:00 02/14/22 08:53 Justifications for Admission Other Justification COPD exacerbation RAMONA BRADSHAW MD Feb 14, 2022 11:26
--- NOTE | 2022-02-14 11:39 | NUR ---
SS following up with discharge planning. SS reviewed pt chart and discussed with pt RN. Pt is currently requiring oxygen at two liters nasal canula. PT/OT recommended residential unit. Pt accepted at [facility], ; fax [phone], pending insurance approval. COVID19 PCR pending for placement. SS will continue to follow for discharge planning.
--- NOTE | 2022-02-14 11:52 | PDOC ---
AAYUSH GARCIA APRN 02/14/22 1152: CARDIO Progress Notes Date and Time Date of Service 02/14/22 Time of Evaluation 1150 Subjective Subjective: No Chest Pain, No Palpitations, No Dizziness, Other (breathing improved ) Vitals Vitals Vital Signs Date Time Temp Pulse Resp B/P (MAP) Pulse Ox O2 Delivery O2 Flow Rate FiO2 02/14/22 11:44 95 Nasal Cannula 1.5 02/14/22 11:00 96.6 72 18 123/48 (73) 96.6 Weight Weight [ ] Input and Output Intake and Output Intake and Output 02/14/22 07:00 Intake Total 660 ml Balance 660 ml Intake Oral 660 ml # Voids 3 # Bowel Movements 1 Laboratory Labs Laboratory Tests Test 02/13/22 17:25 02/13/22 20:19 02/14/22 08:09 02/14/22 11:38 Glucose (Fingerstick) 114 mg/dL (70-99) 129 mg/dL (70-99) 81 mg/dL (70-99) 204 mg/dL (70-99) Physical Exam HEENT: Neck Supple W Full Motion Chest: Symmetric LUNGS: Other (diminished) Heart: RRR (SR) Abdomen: Soft N/T Extremities: No Edema Neurology: alert, oriented, follow commands Assessment Assessment 1. Acute on chronic respiratory failure, AECOPD, PNA 2. Mild acute on chronic diastolic CHF; Echo 06/18 with preserved LV systolic function. s/p IV Lasix. appears compensated 3. Hypertensive urgency; now controlled 4. CAD s/p CABG; clinically stable 5. Hyperlipidemia 6. Diabetes, II 7. CKD 8. Hypothyroidism 9. H/o CVA Recommendations Secondary prevention; ASA, statin therapy. Not on BB with low-end HR Continue current antiHTN therapy Ongoing pulmonary optimization, treatment of PNA Probable outpatient ischemic evaluation Supportive care Justicifation of Admission Dx: Justifications for Admission: Justification of Admission Dx: Yes Respiratory Failure: Severe Resp Distress DEEPALI ASCENCIO MD 02/17/22 1249: CARDIO Progress Notes Plan Plan Late entry for 02/14/2022 Patient seen and examined. I agree with above nurse practitioner note AAYUSH GARCIA APRN Feb 14, 2022 11:52 DEEPALI ASCENCIO MD Feb 17, 2022 12:49
[2022-02-14] MEDS: INSULIN GLARGINE SYRINGE. SQ SCH ×2 (11:58→22:16)
[2022-02-14 14:45] VITALS: BP 122/51
[2022-02-14 18:55] VITALS: BP 114/49
[2022-02-14] MEDS: ATORVASTATIN CALCIUM 40 MG TABLET. PO SCH (22:18)
[2022-02-14 22:20] VITALS: BP 111/43
--- NOTE | 2022-02-14 23:16 | NUR ---
Patients 1999 V/S were 133/56. patients blood glucose was 92. Patient has scheduled lisinopril and hydralazine and lantus. stated that patient can still recieve the lantus. Nurse did a follow/up assessment and at approx 2215 patients blood pressure was 111/43 and was rechecked and was 131/55 p75. stated that patient may have his lisinopril but to hold the hydralazine.
[2022-02-15] MEDS: diphenhydrAMINE HCL 25 MG CAPSULE PO PRN (01:04)
[2022-02-15] MEDS: ACETAMINOPHEN 325 MG TABLET. PO PRN (01:07)
[2022-02-15 02:18] VITALS: BP 123/53
[2022-02-15] MEDS: PANTOPRAZOLE 40 MG TABLET.DR. PO SCH (06:10)
[2022-02-15 07:00] VITALS: BP 156/64
[2022-02-15] MEDS: IPRATRPIUM/ALBUTEROL 0.5/2.5MG 3 ML NEBU. NEB SCH ×4 (07:33→21:15)
[2022-02-15] MEDS: INSULIN LISPRO 300 UNITS/3 ML VIAL. SQ SCH ×6 (08:00→17:00)
[2022-02-15] MEDS: INSULIN GLARGINE SYRINGE. SQ SCH (08:34)
[2022-02-15] MEDS: LACTOBACILLUS RHAMNOSUS GG 1 CAPSULE. PO SCH ×2 (09:39→19:55)
[2022-02-15] MEDS: CEFDINIR 300 MG CAPSULE PO SCH ×2 (09:39→19:55)
[2022-02-15] MEDS: ASPIRIN ENTERIC COATED 81 MG TABLET.DR. PO SCH (09:39)
[2022-02-15] MEDS: predniSONE 20 MG TABLET PO SCH (09:40)
[2022-02-15] MEDS: LISINOPRIL 20 MG TABLET PO SCH ×2 (09:40→23:02)
[2022-02-15] MEDS: ENOXAPARIN 40 MG/0.4 ML SYRINGE. SQ SCH (09:40)
--- NOTE | 2022-02-15 09:57 | PDOC ---
PULMONARY PROGRESS NOTES DATE: 02/15/22 TIME: 09:57 Subjective Patient not short of air Vitals Vital Signs Date Time Temp Pulse Resp B/P (MAP) Pulse Ox O2 Delivery O2 Flow Rate FiO2 02/15/22 09:41 60 156/64 02/15/22 07:33 97 Room Air 02/15/22 07:00 97.7 18 2.0 97.7 General: Alert, No acute distress Lungs: Clear Cardiovascular: S1, S2 Abdomen: Soft Extremities: No Edema Labs Laboratory Tests Test 02/13/22 11:21 02/13/22 17:25 02/13/22 20:19 02/14/22 08:09 Glucose (Fingerstick) 229 mg/dL (70-99) 114 mg/dL (70-99) 129 mg/dL (70-99) 81 mg/dL (70-99) Test 02/14/22 11:38 02/14/22 16:25 02/14/22 20:10 02/15/22 07:52 Glucose (Fingerstick) 204 mg/dL (70-99) 182 mg/dL (70-99) 92 mg/dL (70-99) 59 mg/dL (70-99) Test 02/15/22 08:14 Glucose (Fingerstick) 76 mg/dL (70-99) Laboratory Tests Test 02/14/22 11:38 02/14/22 16:25 02/14/22 20:10 02/15/22 07:52 Glucose (Fingerstick) 204 mg/dL (70-99) 182 mg/dL (70-99) 92 mg/dL (70-99) 59 mg/dL (70-99) Test 02/15/22 08:14 Glucose (Fingerstick) 76 mg/dL (70-99) Medications Active Scripts Medications Dose Route/Sig Max Daily Dose Days Date Category Lisinopril 20 Mg Tablet 1 Tab PO DAILY 02/08/22 Reported Atorvastatin Calcium 10 Mg Tablet 10 Mg PO QHS 30 04/23/19 Rx Metformin Hcl 1,000 Mg Tablet 1,000 Mg PO DAILYWBKFT 03/22/18 Reported Glimepiride 4 Mg Tablet 4 Mg PO DAILY 03/22/18 Reported Impression . 1. Acute on chronic hypoxic respiratory failure secondary to possible acute exacerbation of chronic obstructive pulmonary disease and acute bronchitis. Cannot exclude congestive heart failure due to hypertensive crisis. 2. Abnormal chest x-ray with mildly prominent interstitial markings. We will obtain noncontrast CT chest to better assess interstitial lung disease versus congestive heart failure. 3. Previous echo with normal ejection fraction. 4. 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 5. Prerenal azotemia. 6. Acute bronchitis. 7. Abnormal D-dimer. Clinically, less likely thromboembolic disease. We will obtain venous Dopplers. Plan . Updated 02/[address] Maynor CASTILLO pending for SNU transfer Insurance pending approval JOSE M CAMPUZANO MD Feb 15, 2022 09:57
--- NOTE | 2022-02-15 10:48 | PDOC ---
Date of Service: DATE: 02/15/22 TIME: 10:47 Subjective: Subjective: Still no swallowing complaints - "it's really good." Objective: Vital Signs: Vital Signs Date Time Temp Pulse Resp B/P (MAP) Pulse Ox O2 Delivery O2 Flow Rate FiO2 02/15/22 09:41 60 156/64 02/15/22 08:00 Nasal Cannula 2.0 02/15/22 07:33 97 02/15/22 07:00 97.7 18 97.7 Labs: Laboratory Tests Test 02/14/22 11:38 02/14/22 16:25 02/14/22 20:10 02/15/22 07:52 Glucose (Fingerstick) 204 mg/dL (70-99) 182 mg/dL (70-99) 92 mg/dL (70-99) 59 mg/dL (70-99) Test 02/15/22 08:14 02/15/22 10:28 Glucose (Fingerstick) 76 mg/dL (70-99) 185 mg/dL (70-99) PE: GEN: NAD LUNGS: diminished, NC HEART: RRR ABD: S/ND/NT NEURO/PSYCH: A & O 3 A/P: Dysphagia - resolved -- DC per primary on PPI. Justicifation of Admission Dx: Justifications for Admission: Justification of Admission Dx: Yes Respiratory Failure: Severe Resp Distress ILIA HENDRICKSON Feb 15, 2022 10:48
[2022-02-15 11:00] VITALS: BP 148/49
--- NOTE | 2022-02-15 12:19 | PDOC ---
AAYUSH GARCIA APRN 02/15/22 1219: CARDIO Progress Notes Date and Time Date of Service 02/15/22 Time of Evaluation 1215 Subjective Subjective: No Chest Pain, No Palpitations, No Dizziness, Other (breathing improved ) Vitals Vitals Vital Signs Date Time Temp Pulse Resp B/P (MAP) Pulse Ox O2 Delivery O2 Flow Rate FiO2 02/15/22 11:29 95 Room Air 02/15/22 11:00 97.3 64 18 148/49 (82) 2.0 97.3 Weight Weight [ ] Input and Output Intake and Output Intake and Output 02/15/22 07:00 Intake Total 358 ml Balance 358 ml Intake Oral 358 ml # Voids 4 Laboratory Labs Laboratory Tests Test 02/14/22 16:25 02/14/22 20:10 02/15/22 07:52 02/15/22 08:14 Glucose (Fingerstick) 182 mg/dL (70-99) 92 mg/dL (70-99) 59 mg/dL (70-99) 76 mg/dL (70-99) Test 02/15/22 10:28 Glucose (Fingerstick) 185 mg/dL (70-99) Physical Exam HEENT: Neck Supple W Full Motion Chest: Symmetric LUNGS: Other (diminished) Heart: RRR (SR) Abdomen: Soft N/T Extremities: No Edema Neurology: alert, oriented, follow commands Assessment Assessment 1. Acute on chronic respiratory failure, AECOPD, PNA 2. Mild acute on chronic diastolic CHF; Echo 06/18 with preserved LV systolic function. s/p IV Lasix. appears compensated 3. Hypertensive urgency; now controlled 4. CAD s/p CABG; clinically stable 5. Hyperlipidemia 6. Diabetes, II 7. CKD 8. Hypothyroidism 9. H/o CVA Recommendations Secondary prevention; ASA, statin therapy. Not on BB with low-end HR Continue current antiHTN therapy Probable outpatient ischemic evaluation Supportive care Okay to discharge to from a CV standpoint Justicifation of Admission Dx: Justifications for Admission: Justification of Admission Dx: Yes Respiratory Failure: Severe Resp Distress DEEPALI ASCENCIO MD 02/17/22 1254: CARDIO Progress Notes Plan Plan Late entry for 02/15/2022 Patient seen and examined. Agree with above nurse practitioner AAYUSH GARCIA APRN Feb 15, 2022 12:19 DEEPALI ASCENCIO MD Feb 17, 2022 12:54
--- NOTE | 2022-02-15 12:45 | PDOC ---
[employer] PROGRESS NOTE Date of Service DOS: DATE: 02/15/22 TIME: 12:44 Chief Complaint Chief Complaint Assessment/Plan Acute hypoxic respiratory failure Hypertensive urgency, patient ran out of medications Acute COPD exacerbation Chronic kidney disease History of COPD History of diabetes mellitus type 2 History of CAD History of dyslipidemia History of hypothyroidism Pulmonology consulted for dyspnea ongoing Pending DVT ultrasound Pending Noncon CT of the chest Cardiology consult Lovenox for DVT prophylaxis Protonix GI prophylaxis ADA diet CODE STATUS full Discussed with RN and SW Disposition inpatient management as above DPOA: Son History of Present Illness History of Present Illness 81 year old female presents with respiratory distress and brought in by medics. Patient reported progressive shortness of breath that suddenly became worse today. Patient was brought in a CPAP machine. Patient was hypertensive with an SBP of 250. Patient states that she has been noncompliant with her blood pressure medication as she had ran out of her medications as well she has not been compliant with her COPD meds as it they gave her palpitations. Patient de nies chest pain. Patient was given nitro in the field with minimal relief. Of note patient lives by herself and she gets around with a walker and sometimes a cane. She does have a [id number] who lives nearby her but she does not provide any help. Patient does have a campground caretaker at home. 02/10/2022 No acute events overnight. Patient seen examined bedside. Pressures remain lab ile. Amlodipine started today. We will continue to observe. PT OT evaluate and recommend SNF placement. 02/12/2022 No acute events overnight. Patient seen examined bedside. Patient resting comfortably. Blood pressure is more controlled that started this morning. Saturating 96% on 2 L nasal cannula. Pending SNF placement. Patient's chart, labs, images were reviewed and discussed with RN 02/13 Patient evaluated examined at bedside. Up in chair eating lunch on nasal cannula. Blood pressure more controlled and stable today. At least right now is agreeable to SNF placement. Stools more regular, has not had one today but did yesterday and was solid.. We will continue IV steroids and IV antibiotics until placement found and transition to oral on discharge. Reviewed pulmonary's note and recommendations. Discussed with bedside RN. 02/14 Patient evaluated examined at bedside. Resting in bed on nasal cannula doing well. [facility]. Can discharge there once received. Suspect this wont be until tomorrow however. 02/15 Evaluated examined at bedside. Clinically stable. Awaiting COVID PCR result. If negative can discharge to [facility] anytime. Vitals/I&O Vitals/I&O: Vital Signs Date Time Temp Pulse Resp B/P (MAP) Pulse Ox O2 Delivery O2 Flow Rate FiO2 02/15/22 11:29 95 Room Air 02/15/22 11:00 97.3 64 18 148/49 (82) 2.0 97.3 I & O 02/14/22 02/14/22 02/15/22 15:00 23:00 07:00 Intake Total 118 ml 240 ml Balance 118 ml 240 ml Physical Exam General: Alert, Oriented X3, Cooperative Heart: Regular rate Lungs: Clear Abdomen: Normal bowel sounds Extremities: No clubbing Skin: No significant lesion Labs Labs: Laboratory Tests Test 02/14/22 16:25 02/14/22 20:10 02/15/22 07:52 02/15/22 08:14 Glucose (Fingerstick) 182 mg/dL (70-99) 92 mg/dL (70-99) 59 mg/dL (70-99) 76 mg/dL (70-99) Test 02/15/22 10:28 Glucose (Fingerstick) 185 mg/dL (70-99) Assessment and Plan Assessmemt and Plan Problems Medical Problems: (1) Chest pain Status: Acute (2) Hypertensive urgency Status: Acute Comment Review of Relevant I have reviewed the following items anna (where applicable) has been applied. Justifications for Admission Other Justification COPD exacerbation RAMONA BRADSHAW MD Feb 15, 2022 12:44
[2022-02-15 15:57] VITALS: BP 116/52
[2022-02-15 19:00] VITALS: BP 135/51
[2022-02-15] MEDS: ATORVASTATIN CALCIUM 40 MG TABLET. PO SCH (19:55)
[2022-02-15 23:00] VITALS: BP 142/72
[2022-02-16 02:21] VITALS: BP 177/67
[2022-02-16] MEDS: ACETAMINOPHEN 325 MG TABLET. PO PRN (03:13)
[2022-02-16] MEDS: PANTOPRAZOLE 40 MG TABLET.DR. PO SCH (06:17)
[2022-02-16 07:00] VITALS: BP 148/65
[2022-02-16] MEDS: IPRATRPIUM/ALBUTEROL 0.5/2.5MG 3 ML NEBU. NEB SCH ×2 (07:43→11:05)
[2022-02-16] MEDS: INSULIN LISPRO 300 UNITS/3 ML VIAL. SQ SCH ×4 (07:55→11:18)
[2022-02-16] MEDS: ASPIRIN ENTERIC COATED 81 MG TABLET.DR. PO SCH (08:51)
[2022-02-16] MEDS: LACTOBACILLUS RHAMNOSUS GG 1 CAPSULE. PO SCH (08:51)
[2022-02-16] MEDS ORDERED: HYDR-2869 PO (08:52)
[2022-02-16] MEDS ORDERED: ASPI-886 PO (08:52)
[2022-02-16] MEDS ORDERED: PANT40TA77 PO (08:52)
[2022-02-16] MEDS: LISINOPRIL 20 MG TABLET PO SCH (08:52)
[2022-02-16] MEDS ORDERED: AMLO-186 PO (08:52)
[2022-02-16] MEDS: predniSONE 20 MG TABLET PO SCH (08:52)
[2022-02-16] MEDS: CEFDINIR 300 MG CAPSULE PO SCH (08:52)
--- NOTE | 2022-02-16 08:52 | SNU/HH DC ---
DISCHARGE ORDERS DISCHARGE INFORMATION: DISCHARGE DATE: Feb 16, 2022 FINAL DIAGNOSIS Problems Medical Problems: (1) Chest pain Status: Acute (2) Hypertensive urgency Status: Acute CONDITION ON DISCHARGE: Stable CODE STATUS: Code Status: Full PRISON: SNF STAY <30 DAYS: Yes POST DISCHARGE ORDERS: ACTIVITY ORDERS: No restrictions, Activity as tolerated WEIGHT BEARING STATUS: No restrictions, As tolerated DIET AFTER DISCHARGE: ADA CHECKS AFTER DISCHARGE: CHECKS AFTER DISCHARGE: Check blood sugar, ac/hs TREATMENT/EQUIPMENT ORDERS: ADAPTIVE EQUIPMENT NEEDED: Walker Physical Therapy For: Evalulation/Treatment Occupational Therapy For: Evaluation/Treatment DISCHARGE MEDICATIONS: Home Meds Active Scripts Pantoprazole Sodium (PANTOPRAZOLE SODIUM ) 40 Mg Tablet.dr, 40 MG PO DAILYAC for gerd for 30 Days, #30 TAB.SR Prov:RAMONA BRADSHAW MD 02/16/22 Aspirin (ASPIRIN EC) 81 Mg Tablet.dr, 81 MG PO DAILYWBKFT for cad for 30 Days, #30 TAB.SR Prov:RAMONA BRADSHAW MD 02/16/22 Amlodipine Besylate (AMLODIPINE BESYLATE) 5 Mg Tablet, 10 MG PO DAILY for htn for 30 Days, #60 TAB Prov:RAMONA BRADSHAW MD 02/16/22 Hydralazine Hcl (HYDRALAZINE HCL) 50 Mg Tablet, 50 MG PO TID for htn for 30 Days, #90 TAB Prov:RAMONA BRADSHAW MD 02/16/22 Atorvastatin Calcium (ATORVASTATIN CALCIUM) 10 Mg Tablet, 10 MG PO QHS for HLD for 30 Days, #30 TAB Prov:ANNELIESE ARAGON MD 04/23/19 Reported Medications Lisinopril (LISINOPRIL) 20 Mg Tablet, 1 TAB PO DAILY for 02/08/22 Metformin Hcl (METFORMIN HCL) 1,000 Mg Tablet, 1000 MG PO DAILYWBKFT for ANTI- DIABETIC, TAB 0 Refills 03/22/18 Glimepiride (GLIMEPIRIDE) 4 Mg Tablet, 4 MG PO DAILY, TAB 03/22/18 RAMONA BRADSHAW MD Feb 16, 2022 08:52
[2022-02-16] MEDS: ENOXAPARIN 40 MG/0.4 ML SYRINGE. SQ SCH (08:54)
[2022-02-16] MEDS ORDERED: INSULIN GLARGINE SYRINGE. SQ SCH (09:00)
--- NOTE | 2022-02-16 09:32 | PDOC ---
PULMONARY PROGRESS NOTES DATE: 02/16/22 TIME: 09:32 Subjective No new complaints patient not short of air Vitals Vital Signs Date Time Temp Pulse Resp B/P (MAP) Pulse Ox O2 Delivery O2 Flow Rate FiO2 02/16/22 08:52 53 148/65 02/16/22 08:00 Nasal Cannula 2.0 02/16/22 07:43 97 02/16/22 07:00 97.5 20 97.5 General: Alert, No acute distress Lungs: Clear Cardiovascular: S1, S2 Abdomen: Soft Extremities: No Edema Labs Laboratory Tests Test 02/14/22 11:38 02/14/22 16:25 02/14/22 20:10 02/15/22 07:52 Glucose (Fingerstick) 204 mg/dL (70-99) 182 mg/dL (70-99) 92 mg/dL (70-99) 59 mg/dL (70-99) Test 02/15/22 08:14 02/15/22 08:40 02/15/22 10:28 02/15/22 16:27 Glucose (Fingerstick) 76 mg/dL (70-99) 185 mg/dL (70-99) 149 mg/dL (70-99) Coronavirus (COVID-19)(PCR) Not detected (NOT DETECTD) Test 02/15/22 21:00 02/16/22 07:33 02/16/22 07:35 Glucose (Fingerstick) 286 mg/dL (70-99) 141 mg/dL (70-99) 145 mg/dL (70-99) Laboratory Tests Test 02/15/22 10:28 02/15/22 16:27 02/15/22 21:00 02/16/22 07:33 Glucose (Fingerstick) 185 mg/dL (70-99) 149 mg/dL (70-99) 286 mg/dL (70-99) 141 mg/dL (70-99) Test 02/16/22 07:35 Glucose (Fingerstick) 145 mg/dL (70-99) Medications Active Scripts Medications Dose Route/Sig Max Daily Dose Days Date Category Lisinopril 20 Mg Tablet 1 Tab PO DAILY 02/08/22 Reported Atorvastatin Calcium 10 Mg Tablet 10 Mg PO QHS 30 04/23/19 Rx Metformin Hcl 1,000 Mg Tablet 1,000 Mg PO DAILYWBKFT 03/22/18 Reported Glimepiride 4 Mg Tablet 4 Mg PO DAILY 03/22/18 Reported Impression . 1. Acute on chronic hypoxic respiratory failure secondary to possible acute exacerbation of chronic obstructive pulmonary disease and acute bronchitis. Cannot exclude congestive heart failure due to hypertensive crisis. 2. Abnormal chest x-ray with mildly prominent interstitial markings. We will obtain noncontrast CT chest to better assess interstitial lung disease versus congestive heart failure. 3. Previous echo with normal ejection fraction. 4. 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 5. Prerenal azotemia. 6. Acute bronchitis. 7. Abnormal D-dimer. Clinically, less likely thromboembolic disease. We will obtain venous Dopplers. Plan . Updated 02/16 PCR negative Okay to transfer Discussed with JOSE M Solis MD Feb 16, 2022 09:32
--- NOTE | 2022-02-16 09:59 | PDOC ---
Date of Service: DATE: 02/16/22 TIME: 09:57 Subjective: Subjective: No GI complaints. Objective: Vital Signs: Vital Signs Date Time Temp Pulse Resp B/P (MAP) Pulse Ox O2 Delivery O2 Flow Rate FiO2 02/16/22 08:52 53 148/65 02/16/22 08:00 Nasal Cannula 2.0 02/16/22 07:43 97 02/16/22 07:00 97.5 20 97.5 Labs: Laboratory Tests Test 02/15/22 10:28 02/15/22 16:27 02/15/22 21:00 02/16/22 07:33 Glucose (Fingerstick) 185 mg/dL 149 mg/dL 286 mg/dL 141 mg/dL Test 02/16/22 07:35 Glucose (Fingerstick) 145 mg/dL PE: GEN: NAD - was sleeping LUNGS: CTAB HEART: RRR ABD: NABS, S/ND/NT NEURO/PSYCH: A & O 3 A/P: Dysphagia - resolved COVID PCR negative -- DC per primary, continue PPI. Justicifation of Admission Dx: Justifications for Admission: Justification of Admission Dx: Yes Respiratory Failure: Severe Resp Distress ILIA HENDRICKSON Feb 16, 2022 09:59
[2022-02-16 11:00] VITALS: BP 143/59
--- NOTE | 2022-02-16 11:04 | PDOC ---
AAYUSH GARCIA CHILD NUTRITION MANAGER 02/16/22 1104: CARDIO Progress Notes Date and Time Date of Service 02/16/22 Time of Evaluation 1100 Subjective Subjective: No Chest Pain, No shortness of breath, No Palpitations, No Dizziness Vitals Vitals Vital Signs Date Time Temp Pulse Resp B/P (MAP) Pulse Ox O2 Delivery O2 Flow Rate FiO2 02/16/22 08:52 53 148/65 02/16/22 08:00 Nasal Cannula 2.0 02/16/22 07:43 97 02/16/22 07:00 97.5 20 97.5 Weight Weight [ ] Input and Output Intake and Output Intake and Output0 02/16/22 07:00 Intake Total 1450 ml Output Total 1126 ml Balance 324 ml Intake Oral 1450 ml Output Urine Total 1125 ml Stool Total 1 ml Laboratory Labs Laboratory Tests Test 02/15/22 16:27 02/15/22 21:00 02/16/22 07:33 02/16/22 07:35 Glucose (Fingerstick) 149 mg/dL (70-99) 286 mg/dL (70-99) 141 mg/dL (70-99) 145 mg/dL (70-99) Test 02/16/22 10:41 Glucose (Fingerstick) 196 mg/dL (70-99) Physical Exam HEENT: Neck Supple W Full Motion Chest: Symmetric LUNGS: Other (diminished) Heart: RRR (SR) Abdomen: Soft N/T Extremities: No Edema Neurology: alert, oriented, follow commands Assessment Assessment 1. Acute on chronic respiratory failure, AECOPD, PNA 2. Mild acute on chronic diastolic CHF; Echo 06/18 with preserved LV systolic function. s/p IV Lasix. appears compensated 3. Hypertensive urgency; now controlled 4. CAD s/p CABG; clinically stable 5. Hyperlipidemia 6. Diabetes, II 7. CKD 8. Hypothyroidism 9. H/o CVA Recommendations Secondary prevention; ASA, statin therapy. Continue current antiHTN therapy Probable outpatient ischemic evaluation Supportive care Okay to discharge to from a CV standpoint Follow up with Dr. Carranza as scheduled Justicifation of Admission Dx: Justifications for Admission: Justification of Admission Dx: Yes Respiratory Failure: Severe Resp Distress DEEPALI CARRANZA MD 02/17/22 1258: CARDIO Progress Notes Plan Plan Late entry for 02/16/2022 Patient seen and examined. I agree with above nurse practitioner note AAYUSH GARCIA APRN Feb 16, 2022 11:04 DEEPALI CARRANZA MD Feb 17, 2022 12:58
--- NOTE | 2022-02-16 11:13 | NUR ---
SS following up with discharge planning. SS reviewed pt chart and discussed with pt RN. Pt is currently requiring oxygen at two liters nasal canula. COVID19 negative. PT/OT recommended fpc unit. Pt accepted at [facility], ; fax [phone]. Insurance approval received. Discharge orders sent to [facility]. Pt will discharge today and go to [facility] at 1245 via [facility] transport, [id number]. Pt and pt's RN notified.
--- NOTE | 2022-02-16 18:45 | PDOC3 ---
[facility]-Discharge Summary Date of Admission: Date of Admission: Feb 09, 2022 Date of Discharge: Date of Discharge: Feb 16, 2022 Admission Diagnosis: Admitting Diagnosis: Respiratory failure. Hypertensive urgency chest pain Hospital Course: Hospital Course: Date of Service DOS: DATE: 02/15/22 TIME: 12:44 Chief Complaint Chief Complaint Assessment/Plan Acute hypoxic respiratory failure Hypertensive urgency, patient ran out of medications Acute COPD exacerbation Chronic kidney disease History of COPD History of diabetes mellitus type 2 History of CAD History of dyslipidemia History of hypothyroidism Pulmonology consulted for dyspnea ongoing Pending DVT ultrasound Pending Noncon CT of the chest Cardiology consult Lovenox for DVT prophylaxis Protonix GI prophylaxis ADA diet CODE STATUS full Discussed with RN and SW Disposition inpatient management as above DPOA: Son History of Present Illness History of Present Illness 81 year old female presents with respiratory distress and brought in by medics. Patient reported progressive shortness of breath that suddenly became worse today. Patient was brought in a CPAP machine. Patient was hypertensive with an SBP of 250. Patient states that she has been noncompliant with her blood pressure medication as she had ran out of her medications as well she has not been compliant with her COPD meds as it they gave her palpitations. Patient denies chest pain. Patient was given nitro in the field with minimal relief. Of note patient lives by herself and she gets around with a walker and sometimes a cane. She does have a [id number] who lives nearby her but she does not provide any help. Patient does have a fast food shift supervisor at home. 02/10/2022 No acute events overnight. Patient seen examined bedside. Pressures remain labile. Amlodipine started today. We will continue to observe. PT OT evaluate and recommend SNF placement. 02/12/2022 No acute events overnight. Patient seen examined bedside. Patient resting comfortably. Blood pressure is more controlled that started this morning. Saturating 96% on 2 L nasal cannula. Pending SNF placement. Patient's chart, labs, images were reviewed and discussed with RN 02/13 Patient evaluated examined at bedside. Up in chair eating lunch on nasal cannula. Blood pressure more controlled and stable today. At least right now is agreeable to SNF placement. Stools more regular, has not had one today but did yesterday and was solid.. We will continue IV steroids and IV antibiotics until placement found and transition to oral on discharge. Reviewed pulmonary's note and recommendations. Discussed with bedside RN. 02/14 Patient evaluated examined at bedside. Resting in bed on nasal cannula doing well. Waiting for COVID PCR and insurance Auth for [facility]. Can discharge there once received. Suspect this wont be until tomorrow however. 02/15 Evaluated examined at bedside. Clinically stable. Awaiting COVID PCR result. If negative can discharge to [facility] anytime. 02/16 Evaluate examined at bedside. COVID-negative. Discharge to [facility] today. Greater than 30 minutes spent on discharge. 19 minutes advance care planning. Disposition: Disposition/Orders: D/C to Another Facility Activity: Activity: Resume previous activity Diet: Diet: Cardiac Medications: Home Meds Active Scripts Pantoprazole Sodium (PANTOPRAZOLE SODIUM ) 40 Mg Tablet., 40 MG PO DAILYAC for gerd for 30 Days, #30 TAB.SR Prov:RAMONA BRADSHAW MD 02/16/22 Aspirin (ASPIRIN EC) 81 Mg Tablet., 81 MG PO DAILYWBKFT for cad for 30 Days, #30 TAB.SR Prov:RAMONA BRADSHAW MD 02/16/22 Amlodipine Besylate (AMLODIPINE BESYLATE) 5 Mg Tablet, 10 MG PO DAILY for htn for 30 Days, #60 TAB Prov:RAMONA BRADSHAW MD 02/16/22 Hydralazine Hcl (HYDRALAZINE HCL) 50 Mg Tablet, 50 MG PO TID for htn for 30 Days, #90 TAB Prov:RAMONA BRADSHAW MD 02/16/22 Atorvastatin Calcium (ATORVASTATIN CALCIUM) 10 Mg Tablet, 10 MG PO QHS for HLD for 30 Days, #30 TAB Prov:ANNELIESE ARAGON MD 04/23/19 Reported Medications Lisinopril (LISINOPRIL) 20 Mg Tablet, 1 TAB PO DAILY for 02/08/22 Metformin Hcl (METFORMIN HCL) 1,000 Mg Tablet, 1000 MG PO DAILYWBKFT for ANTI- DIABETIC, TAB 0 Refills 03/22/18 Glimepiride (GLIMEPIRIDE) 4 Mg Tablet, 4 MG PO DAILY, TAB 03/22/18 Scheduled Amlodipine Besylate (Amlodipine Besylate), 10 MG PO DAILY Aspirin (Aspirin Ec), 81 MG PO DAILYWBKFT Atorvastatin Calcium (Atorvastatin Calcium), 10 MG PO QHS Glimepiride (Glimepiride), 4 MG PO DAILY, (Reported) Hydralazine Hcl (Hydralazine Hcl), 50 MG PO TID Lisinopril (Lisinopril), 1 TAB PO DAILY, (Reported) Metformin Hcl (Metformin Hcl), 1,000 MG PO DAILYWBKFT, (Reported) Pantoprazole Sodium (Pantoprazole Sodium ), 40 MG PO DAILYAC Justicifation of Admission Dx: Justifications for Admission: Justification of Admission Dx: Yes Respiratory Failure: Severe Resp Distress RAMONA BRADSHAW MD Feb 16, 2022 18:45
== END 2022-02-16 13:20 | DRG 291 ==
LOC: ER 14:20 → ED HOLD 19:08 → 6 SOUTH 20:47
PROVIDERS: ADMIT Internal Medicine; ATTEND Internal Medicine
PROC: 5A09357 Assistance with Respiratory Ventilation, Less than 24 Consecutive Hours, Continuous Positive Airway Pressure (ICD-10-PCS; principal; 2022-02-08)
DX: I13.0 Hypertensive heart and chronic kidney disease with heart failure and stage 1 through stage 4 chronic kidney disease, or unspecified chronic kidney disease (principal); J96.21 Acute and chronic respiratory failure with hypoxia; I50.33 Acute on chronic diastolic (congestive) heart failure; J18.9 Pneumonia, unspecified organism; I16.1 Hypertensive emergency; J44.0 Chronic obstructive pulmonary disease with (acute) lower respiratory infection; J44.1 Chronic obstructive pulmonary disease with (acute) exacerbation; E03.9 Hypothyroidism, unspecified; E11.22 Type 2 diabetes mellitus with diabetic chronic kidney disease; E78.00 Pure hypercholesterolemia, unspecified; E78.5 Hyperlipidemia, unspecified; I25.10 Atherosclerotic heart disease of native coronary artery without angina pectoris; J20.9 Acute bronchitis, unspecified; K46.9 Unspecified abdominal hernia without obstruction or gangrene; K57.90 Diverticulosis of intestine, part unspecified, without perforation or abscess without bleeding; K59.00 Constipation, unspecified; M41.9 Scoliosis, unspecified; N18.9 Chronic kidney disease, unspecified; R13.10 Dysphagia, unspecified; R47.02 Dysphasia; Z20.822 Contact with and (suspected) exposure to COVID-19; Z79.82 Long term (current) use of aspirin; Z79.899 Other long term (current) drug therapy; Z86.73 Personal history of transient ischemic attack (TIA), and cerebral infarction without residual deficits; Z87.891 Personal history of nicotine dependence; Z90.49 Acquired absence of other specified parts of digestive tract; Z91.14 Patient's other noncompliance with medication regimen; Z91.19 Patient's noncompliance with other medical treatment and regimen; Z95.1 Presence of aortocoronary bypass graft; M19.90 Unspecified osteoarthritis, unspecified site
CPT/HCPCS: 36415; 71045; 71250; 80048; 80053; 80061; 81001; 82805; 82962; 83735; 83880; 84100; 84145; 84443; 84484; 85025; 85379; 87426; 87428; 87493; 93005; 93970; 94640; 94660; 94760; 96374; 96375; J0360; J0696; J1650; J1815; J1940; J2060; J2920; J2930; J3490; J7030; J7512; U0003; 97116-GP; 97530-GO; 97535-GO; 99291-25; G0378; J7613; Q0163

== ENCOUNTER 2022-03-08 16:41 | Emergency (ER) | payer OTHER ==
[~2022-03-08] VITALS: Ht 162.6 cm; Wt 75.4 kg
[~2022-03-08 16:41] MED LIST changes: +AMLO-186 PO; +ASPI-886 PO; +HYDR-2869 PO; +PANT40TA77 PO
[2022-03-08 17:40] LABS: BASO % 1 % (0-3); EOS # 0.1 x10^3/uL (0.0-0.7); EOS % 1 % (0-3); HEMATOCRIT 37.9 % (36.0-47.0); HEMOGLOBIN 12.6 g/dL (12.0-15.5); LYMPH # 0.8 x10^3/uL (1.0-4.8); LYMPH % 13 % (24-48); MEAN CORPUSCULAR HEMOGLOBIN 30 pg (25-35); MEAN CORPUSCULAR HGB CONC 33 g/dL (31-37); MEAN CORPUSCULAR VOLUME 89 fL (79-100); MONO # 0.5 x10^3/uL (0.0-1.1); MONO % 9 % (0-9); NEUT # 4.3 x10^3/uL (1.8-7.7); NEUT % 76 % (31-73); PLATELET COUNT 265 x10^3/uL (140-400); RED BLOOD COUNT 4.27 x10^6/uL (3.50-5.40); RED CELL DISTRIBUTION WIDTH 14.3 % (11.5-14.5); WHITE BLOOD COUNT 5.7 x10^3/uL (4.0-11.0)
[2022-03-08 17:56] LABS: CALCIUM 9.8 mg/dL (8.5-10.1); CREATININE 1.2 mg/dL (0.6-1.0); POTASSIUM 4.4 mmol/L (3.5-5.1)
[2022-03-08 17:57] LABS: PROTHROMBIN TIME PATIENT 12.8 SEC (11.7-14.0)
[2022-03-08 18:02] LABS: ALBUMIN 3.5 g/dL (3.4-5.0); ALBUMIN/GLOBULIN RATIO 0.8 (1.0-1.7); TOTAL BILIRUBIN 0.5 mg/dL (0.2-1.0); TOTAL PROTEIN 8.1 g/dL (6.4-8.2)
[2022-03-08 18:11] LABS: BACTERIA,URINE 0 /HPF (0-FEW); RBC,URINE 0 /HPF (0-2)
--- NOTE | 2022-03-08 18:14 | RAD ---
EXAM: AP View of the chest DATE: 03/08/2022 5:43 PM INDICATION: Reason: CONGESTED COMPARISON: 02/08/2022 FINDINGS: Moderate cardiomegaly. Aorta is tortuous with atherosclerotic calcifications. Right mid lung and bila teral lung base airspace opacities Trace pleural effusions. No pneumothorax. IMPRESSION: Cardiomegaly with trace pleural effusions and parenchymal opacities may represent pulmonary edema or consolidative process such as pneumonia. Electronically signed by: Gary Earl MD (03/08/2022 6:12 PM) [place]
--- NOTE | 2022-03-08 19:09 | PHYS DOC ---
Past Medical History Past Medical History: Arthritis, CAD, Diabetes-Type II, High Cholesterol, Hypertension, Hypothyroid Past Surgical History: No Surgical History Smoking Status: Former Smoker Alcohol Use: None Drug Use: None Adult General Chief Complaint Chief Complaint: WEAKNESS/GENERALIZED HPI HPI Patient is a 81 year old female presenting to the emergency department for evaluation of generalized weakness that she says started earlier today. 911 was called and she reportedly was hypoglycemic with a blood sugar of 45 per EMS and she was given dextrose and she says she does feel better at this time. Patient denies any pain fevers chills nausea vomiting or diarrhea. She says she does have diabetes but only takes metformin. She says that she is hungry and would like to eat. She says she lives at home by herself with a home health nurse comes to her residence 5 times a week. She says she ambulates with a walker and feels like she could do so at this time. She is in no acute distress. Review of Systems Review of Systems Constitutional: Denies fever or chills [] Eyes: Denies change in visual acuity, redness, or eye pain [] HENT: Denies nasal congestion or sore throat [] Respiratory: Denies cough or shortness of breath [] Cardiovascular: No additional information not addressed in HPI [] GI: Denies abdominal pain, nausea, vomiting, bloody stools or diarrhea [] : Denies dysuria or hematuria [] Musculoskeletal: Denies back pain or joint pain [] Integument: Denies rash or skin lesions [] Neurologic: Denies headache, focal weakness or sensory changes [] All other systems were reviewed and found to be within normal limits, except as documented in this note. Allergies Allergies Allergies Coded Allergies Type Severity Reaction Last Updated Verified No Known Drug Allergies 02/08/22 No Physical Exam Physical Exam Constitutional: Well developed, well nourished, no acute distress, non-toxic appearance. [] HENT: Normocephalic, atraumatic, bilateral external ears normal, oropharynx moist, no oral exudates, nose normal. [] Eyes: PERRLA, EOMI, conjunctiva normal, no discharge. [] Neck: Normal range of motion, no tenderness, supple, no stridor. [] Cardiovascular:Heart rate regular rhythm, no murmur [] Lungs & Thorax: Bilateral breath sounds clear to auscultation [] Abdomen: Bowel sounds normal, soft, no tenderness, no masses, no pulsatile masses. [] Skin: Warm, dry, no erythema, no rash. [] Back: No tenderness, no CVA tenderness. [] Extremities: No tenderness, no cyanosis, no clubbing, ROM intact, no edema. [] Neurologic: Alert and oriented X 3, normal motor function, normal sensory function, no focal deficits noted. [] Current Patient Data Vital Signs Vital Signs Date Time Temp Pulse Resp B/P (MAP) Pulse Ox O2 Delivery O2 Flow Rate FiO2 03/08/22 16:52 97.2 61 22 177/85 (115) 93 Room Air 97.2 Lab Values Laboratory Tests Test 03/08/22 17:25 03/08/22 17:30 White Blood Count 5.7 x10^3/uL (4.0-11.0) Red Blood Count 4.27 x10^6/uL (3.50-5.40) Hemoglobin 12.6 g/dL (12.0-15.5) Hematocrit 37.9 % (36.0-47.0) Mean Corpuscular Volume 89 fL (79-100) Mean Corpuscular Hemoglobin 30 pg (25-35) Mean Corpuscular Hemoglobin Concent 33 g/dL (31-37) Red Cell Distribution Width 14.3 % (11.5-14.5) Platelet Count 265 x10^3/uL (140-400) Neutrophils (%) (Auto) 76 % (31-73) H Lymphocytes (%) (Auto) 13 % (24-48) L Monocytes (%) (Auto) 9 % (0-9) Eosinophils (%) (Auto) 1 % (0-3) Basophils (%) (Auto) 1 % (0-3) Neutrophils # (Auto) 4.3 x10^3/uL (1.8-7.7) Lymphocytes # (Auto) 0.8 x10^3/uL (1.0-4.8) L Monocytes # (Auto) 0.5 x10^3/uL (0.0-1.1) Eosinophils # (Auto) 0.1 x10^3/uL (0.0-0.7) Basophils # (Auto) 0.0 x10^3/uL (0.0-0.2) Prothrombin Time 12.8 SEC (11.7-14.0) Prothrombin Time INR 1.0 (0.8-1.1) Sodium Level 142 mmol/L (136-145) Potassium Level 4.4 mmol/L (3.5-5.1) Chloride Level 103 mmol/L (98-107) Carbon Dioxide Level 29 mmol/L (21-32) Anion Gap 10 (6-14) Blood Urea Nitrogen 23 mg/dL (7-20) H Creatinine 1.2 mg/dL (0.6-1.0) H Estimated GFR (Cockcroft-Gault) 43.0 BUN/Creatinine Ratio 19 (6-20) Glucose Level 111 mg/dL (70-99) H Calcium Level 9.8 mg/dL (8.5-10.1) Total Bilirubin 0.5 mg/dL (0.2-1.0) Aspartate Amino Transferase (AST) 28 U/L (15-37) Alanine Aminotransferase (ALT) 30 U/L (14-59) Alkaline Phosphatase 116 U/L (46-116) Troponin I High Sensitivity 12 ng/L (4-50) Total Protein 8.1 g/dL (6.4-8.2) Albumin 3.5 g/dL (3.4-5.0) Albumin/Globulin Ratio 0.8 (1.0-1.7) L Urine Collection Type Unknown Urine Color (Auto) Light yellow Urine Turbidity Clear Urine pH (Auto) 6.5 (<5.0-8.0) Urine Specific [place] 1.009 (1.000-1.030) Urine Protein (Auto) Negative mg/dL (Negative) Urine Glucose (Auto)(UA) Negative mg/dL (Negative) Urine Ketones (Auto) Negative mg/dL (Negative) Urine Blood (Auto) Negative (Negative) Urine Nitrite Negative (Negative) Urine Bilirubin (Auto) Negative (Negative) Urine Urobilinogen (Auto) Normal mg/dL (Normal) Urine Leukocyte Esterase (Auto) Negative (Negative) Urine RBC 0 /HPF (0-2) Urine WBC 1-4 /HPF (0-4) Urine Squamous Epithelial Cells Occ /LPF Urine Bacteria 0 /HPF (0-FEW) Urine Mucus Slight /LPF [id number]-Type Natriuretic Peptide 1222 pg/mL (0-449) H Laboratory Tests 03/08/22 17:25 Laboratory Tests 03/08/22 17:25 EKG EKG Sinus rhythm at 75 bpm with leftward axis no ST elevation or depression and normal T waves. Radiology/Procedures Radiology/Procedures [] Course & Med Decision Making Course & Med Decision Making Patient's work-up is negative to this point except she may have mild pulmonary edema or possibly pneumonia. I asked her again about a cough and she says she might have a mild cough. Patient's work-up came back largely negative as are her BNP is at her baseline and I do not suspect new onset heart failure. Patient has mild cough but no leukocytosis fever or hypoxia. Patient says she feels well and is at her baseline and would like to go home. I explained patient's symptoms to the c aregiver including that she was hypoglycemic and now that she is normoglycemic she says she is at her baseline would like to go home. The caregiver agreed that the patient is at her baseline and would like to take her home. Given the patient and caretaker grounds are requesting discharge and patient appears well and is nontoxic with no acute findings I will discharge her in a stable condition. I did tell them that I am willing to have her observed overnight in the hospital to ensure there is no change in her clinical condition but they refused again requesting discharge. I did discuss the findings of possible pneumonia but that her oxygenation is normal. I recommended that she follow-up with her primary care provider in 2 days to go over her symptoms and her vital signs to possibly get a repeat x-ray if she is not improving. Patient and caretaker grounds aware and agreeable with plan for discharge and verbalized understanding of the need for 2-day PCP follow-up and strict ED return precautions discussed. Dragon Disclaimer Dragon Disclaimer This electronic medical record was generated, in whole or in part, using a voice recognition dictation system. Departure Departure Impression: Primary Impression: Hypoglycemia Additional Impression: Generalized weakness Disposition: 01 HOME / SELF CARE / HOMELESS Condition: STABLE Referrals: ANNELIESE ARAGON MD (PCP) Patient Instructions: Hypoglycemia (Low Blood Sugar) Problem Qualifiers ISHA GARCIA DO March 08, 2022 19:09
[2022-03-08 21:33] VITALS: BP 200/87
== END 2022-03-08 21:45 | disposition home or self-care (01) ==
LOC: ER 16:41
DX: E11.649 Type 2 diabetes mellitus with hypoglycemia without coma (principal); R53.1 Weakness; E78.00 Pure hypercholesterolemia, unspecified; I25.10 Atherosclerotic heart disease of native coronary artery without angina pectoris; I10 Essential (primary) hypertension; E03.9 Hypothyroidism, unspecified; Z87.891 Personal history of nicotine dependence
CPT/HCPCS: 36415; 71045; 80053; 81001; 83880; 84484; 85025; 85610; 99285-25